=== PATIENT | male | born 1955 | race Caucasian/White ===

== ENCOUNTER 2022-01-13 10:27 | Observation (INO) ==
[2022-01-13] MEDS ORDERED: SODIUM CHLORIDE 0.9% 1000ML 1,000 ML IV ONE (11:14)
--- NOTE | 2022-01-13 11:16 | Emergency Department Note ---
Impression & Plan Near syncope, Dizziness, Atherosclerosis of left carotid artery ED Provider Note Name: ANGELY ALEGRIA Age: 66 Sex: M Arrives Via: Ambulance Informant: Patient, , EMS ED Provider: Joe Mccann MD Chief Complaint: Near syncope Impression: As per impressions above Medical Decision Making: Pleasant 66-year-old gentleman arrives for evaluation of near syncope. Patient with a history of hypertension, dyslipidemia, diabetes, BPH. He has a remote history of vertiginous issues. He notes dizziness over the last few days which comes and goes. He was actually seen yesterday for similar symptoms given some fluids and was feeling better. He was discharged feeling well yesterday this morning he was at work when he was just standing there and had a sudden onset of severe dizziness with some vertiginous aspect to it. He admitted that he almost passed out fell to the ground and hit his elbow off the ground. He has some abrasions to the elbow but they do not need closure and just some antibiotic ointment wound care. Tetanus is as he believes up-to-date within the last 10 years. He did have a CT Noncon of the head done yesterday thus a did go ahead and get a CT angiogram of the head and neck today which is fortunately unremarkable other than some atherosclerosis in the left carotid artery. There is no evidence of dissection or acute clot at this time. Repeat labs are unremarkable as well. He is not having much symptoms when just sitting but does note that sometimes they seem to come back. Given the near syncopal episode and the repeat TR I think it is reasonable to have the hospitalist evaluate him and they have brought him in for further work-up and evaluation. As he has no current neurologic deficits there is no indication for acute stroke alert nor would he be a tPA candidate. Given that no current symptoms I think it is r easonable to hold off any aspirin as well. Prior Medical Record and Triage/Nursing Notes reviewed by Me Additional history obtained from , chart, ems Differentials:Benign positional vertigo, dehydration, hypovolemia, anemia, tumor, infection, hypoglycemia, electrolyte abnormalities, cardiac sources, intracerebral event, toxicologic, neurologic, as well as other pathologies. Vital Signs: reviewed and remarkable for no significant abnormalities Interventions: Normal saline bolus Labs:Reviewed and remarkable for no significant abnormalities Imaging:CTA of the head and neck no acute findings other than some atherosclerosis of the left carotid artery without evidence of occlusion as per radiologist read EKG:Per My Interpretation: Indication near syncope: Sinus Song 59 bpm, qtc 479 with RBBB. No Ectopy. No Ischemia. Compared to EKG 01/12/22, no significant changes. Cardiac/Tele Monitoring: Cardiac Monitoring: An Order was placed for continuous cardiac monitoring. The monitor shows a rate of 60 with a normal sinus rhythm. Consults:Dr Livier Calvo hospitalist Plan: Disposition:Hospitalization. Condition: Good History of Present Illness:66-year-old gentleman with a history of hypertension , dyslipidemia, type 2 diabetes, BPH, PE. He arrives for evaluation of vertigo and near syncope. Patient states that the last 2 or 3 days he has noted episodes of vertiginous type symptoms. He had a history of this several years ago and had some work with a balance specialist and it had resolved. Yesterday the symptoms started getting worse so he came to the ER. At that time he had an extensive work-up including CT Noncon of the head along with other labs and EKGs. He was given fluids and had been feeling much better this went home. He woke this morning feeling fine he was at work when he developed severe feeling of spinning lightheadedness and fell to the ground. He landed on his right elbow. He states symptoms have mostly resolved. He denies any current headache, neck pain, chest pain, back pain, abdominal pain, nausea, vomiting, urinary/bowel symptoms no other symptoms. He had no recent medication changes other than he takes his metformin twice a day rather than both pills once a day. He took no medications prior to arrival. He is on aspirin 81 mg daily and no other blood thinners. He states he was feeling well for the last few months/weeks and really never gets sick. His denies any evidence of strokelike symptoms and denies any slurred speech, focal neurologic weakness or facial droop. Patient does have a history of PE which was incited by an Achilles tendon surgery. He is no longer on any blood thinners and has no family history of DVT/PE. He denies any chest pain, shortness of breath, syncope, leg swelling, calf pain, any difficulty breathing, exertional dyspnea or other symptoms. ROS: See above HPI for pertinent positives & negatives. A total of 10 systems reviewed and were otherwise negative. Past Medical History:Hypertension, dyslipidemia, type 2 diabetes, BPH, PE Past Surgical History:Achilles tendon surgery Family History:No family history of PE/DVT Social History:Works at a [employer] course, no smoking, Home Medications:See Below Allergies:Ceftriaxone Vitals:Blood Pressure: 156/83, Pulse 58, RR 15, T 36.6C, O2 97% on RA Physical Exam: GENERAL: Patient is mildly anxious appearing and in minimal distress. EYES: No scleral icterus, unremarkable pupils. ENT: Mucous membranes moist, no nasal congestion. NECK: No masses appreciated, nomeningismus, trachea is midline. RESPIRATORY: No dyspnea. Clear to auscultation and equal bilaterally. No wheeze, no rhonchi. CARDIOVASCULAR: Regular rate and rhythm.No murmurs, rubs, gallops appreciated. GASTROINTESTINAL: Abdomen soft, non-tender, no peritonitis.Bowel sounds positive.No masses appreciated. BACK: No midline tenderness, no CVA tenderness EXTREMITIES: Normal motion all extremities, no cyanosis, no edema. NEUROLOGIC: Alert and oriented, no acute motor or sensory deficits, no focal weakness, cranial nerves grossly intact. SKIN: No rash, no jaundice, no diaphoresis. PSYCH: Appropriate GCS: 15 ED Course: Times/Reassessments: Patient stable and says periodically he gets return of symptoms but he has not had them during my evaluation and he currently is feeling well. He is agreeable to hospitalist evaluation. Joe Mccann MD Past Med/Surg History Medical History (Updated 01/13/22 @ 18:51 by Joe Mccann MD) Cervical spinal stenosis DM II (diabetes mellitus, type II), controlled HLD (hyperlipidemia) Hypertension PE (pulmonary embolism) Surgical History (Updated 01/13/22 @ 16:04 by Deirdre Dumont PA-C) H/O laminectomy C3-C4 in 1990 Family History (Updated 01/13/22 @ 16:04 by Deirdre Dumont PA-C) Father Heart disease Social History Smoking Status: Never smoker Tobacco Type: Cigarettes Hx Alcohol Use: Yes Alcohol type: beer Hx Substance Use: No Preferred Language: Amharic Communication Ability: Effective Production Welder Required: No Beliefs That Will Affect Care: None Current Living Situation: Spouse Other Information That Helps Us Care for You: No Feels Safe at Home: Yes Assistive Devices: Glasses and Hearing Aid - Bilateral Allergies Allergies Allergy/AdvReac Type Severity Reaction Status Date / Time ceftriaxone Allergy Intermediate HIVES, Verified 01/13/22 14:26 SWELLING, ITCHING OF THROAT Home Meds Home Medications Medication Instructions Recorded Confirmed lisinopril 20 mg tablet 20 mg PO QAM #0 tab 06/27/14 01/13/22 multivitamin 1 tab PO QAM #0 tab 10/15/15 01/13/22 aspirin 81 mg tablet,delayed 81 mg PO QAM 01/12/22 01/13/22 release atorvastatin 20 mg tablet 20 mg PO HS 01/12/22 01/13/22 metformin 500 mg tablet,extended 500 mg PO BIDM 01/12/22 01/13/22 release 24 hr metoprolol succinate 25 mg 25 mg PO QAM 01/12/22 01/13/22 tablet,extended release 24 hr tamsulosin 0.4 mg capsule 0.4 mg PO QAM 01/12/22 01/13/22 Results & Data (ED) Vital Signs Vital Signs - 24 hr 01/13/22 10:36 01/13/22 11:00 01/13/22 12:00 Temperature 36.6 C Temperature Source Oral Pulse Rate 59 L 58 L 64 Pulse Rate [Apical] 59 L Respiratory Rate 20 15 19 Respiratory Effort / Characteristics Non-Labored Spontaneous Respiratory Depth Normal Respiratory Pattern Regular Blood Pressure 178/88 H 156/83 H 152/82 H Blood Pressure [Right Arm] 178/88 H Blood Pressure Mean 118 107 105 Blood Pressure Mean [Right Arm] 118 Pulse Oximetry 98 97 97 Oxygen Delivery Method Room Air Sepsis Recent Fever Within 48 Hours No Sepsis New/Unexplained Change in Mental Status No Sepsis Action Taken by Nursing No Action Required 01/13/22 13:04 01/13/22 14:00 Temperature Temperature Source Pulse Rate 74 71 Pulse Rate [Apical] Respiratory Rate 17 15 Respiratory Effort / Characteristics Respiratory Depth Respiratory Pattern Blood Pressure 173/87 H 165/95 H Blood Pressure [Right Arm] Blood Pressure Mean 115 118 Blood Pressure Mean [Right Arm] Pulse Oximetry 98 98 Oxygen Delivery Method Sepsis Recent Fever Within 48 Hours Sepsis New/Unexplained Change in Mental Status Sepsis Action Taken by Nursing Laboratory Data Result diagrams: 01/13/22 11:30 01/13/22 11:30 Lab Results 01/13/22 01/13/22 01/13/22 Range/Units 11:30 11:30 11:30 WBC 8.97 (4.8-10.8) K/uL RBC 5.05 (4.7-6.1) M/uL Hgb 15.9 (14.0-18.0) g/dL Hct 46.2 (42-52) % MCV 91.5 (80-100) fL MCH 31.5 (25-34) pg MCHC 34.4 (32-36) g/dL RDW Std Deviation 44.8 (36.4-46.3) fL RDW Coeff of Ankit 13.4 (11.5-14.5) % Plt Count 258 (130-400) K/uL MPV 10.5 H (7.4-10.4) fL Immature Gran % (Auto) 0.4 % Neut % (Auto) 80.0 % Lymph % (Auto) 11.0 % Hardy % (Auto) 6.8 % Eos % (Auto) 1.6 % Baso % (Auto) 0.2 % Neut # (Auto) 7.17 H (1.4-6.5) K/uL Lymph # (Auto) 0.99 L (1.2-3.4) K/uL Hardy # (Auto) 0.61 H (0.11-0.59) K/uL Eos # (Auto) 0.14 (0-0.5) K/uL Baso # (Auto) 0.02 (0-0.2) K/uL Immature Gran # (Auto) 0.04 H (0.00-0.02) K/uL Sodium 137 (136-145) mmol/L Potassium 3.9 (3.5-5.1) mmol/L Chloride 105 (98-107) mmol/L Carbon Dioxide 24 (21-32) mmol/L Anion Gap 8 (3-11) BUN 16 (6-23) mg/dl Creatinine 0.72 (0.6-1.4) mg/dl Est Cr Clr Drug Dosing 114.0 ml/min Est GFR ( Amer) 112.7 ml/min Est GFR (Non-Af Amer) 97.2 ml/min BUN/Creatinine Ratio 22.2 H (10-20) Glucose 145 H (70-99(Fasting)) mg/dl Calcium 8.8 (8.5-10.1) mg/dl Magnesium 1.9 (1.7-2.4) mg/dl Total Bilirubin 0.8 (0.2-1.0) mg/dl Direct Bilirubin 0.1 (0-0.2) mg/dl AST 20 (13-39) U/L ALT 19 (7-52) U/L Alkaline Phosphatase 92 (34-104) U/L Troponin I High Sens 4.5 (0-20) pg/ml Total Protein 7.2 (6.0-8.3) gm/dl Albumin 4.1 (3.4-5.0) gm/dl Urine Color Yellow Urine Appearance Clear (Clear) Urine pH 7.0 (4.5-7.5) Ur Specific [place] 1.014 (1.000-1.030) Urine Protein Negative (Negative) Urine Glucose (UA) Negative (Negative) Urine Ketones Trace H (Negative) Urine Blood Trace H (Negative) Urine Nitrite Negative (Negative) Urine Bilirubin Negative (Negative) Urine Urobilinogen Negative (Negative) Ur Leukocyte Esterase Negative (Negative) Urine WBC (Auto) 1-5 (0-5) /hpf Urine RBC (Auto) 5-10 H (0-4) /hpf U Hyaline Cast (Auto) 0 (0-5) /lpf U Epithel Cells (Auto) 5-10 H (0-5) /lpf Urine Bacteria (Auto) Negative (Negative) Ur Renal Epithelial Cell Not Reportable SARS-CoV-2, RNA, NAAT (NEGATIVE) 01/13/22 Range/Units 11:38 WBC (4.8-10.8) K/uL RBC (4.7-6.1) M/uL Hgb (14.0-18.0) g/dL Hct (42-52) % MCV (80-100) fL MCH (25-34) pg MCHC (32-36) g/dL RDW Std Deviation (36.4-46.3) fL RDW Coeff of Ankit (11.5-14.5) % Plt Count (130-400) K/uL MPV (7.4-10.4) fL Immature Gran % (Auto) % Neut % (Auto) % Lymph % (Auto) % Hardy % (Auto) % Eos % (Auto) % Baso % (Auto) % Neut # (Auto) (1.4-6.5) K/uL Lymph # (Auto) (1.2-3.4) K/uL Hardy # (Auto) (0.11-0.59) K/uL Eos # (Auto) (0-0.5) K/uL Baso # (Auto) (0-0.2) K/uL Immature Gran # (Auto) (0.00-0.02) K/uL Sodium (136-145) mmol/L Potassium (3.5-5.1) mmol/L Chloride (98-107) mmol/L Carbon Dioxide (21-32) mmol/L Anion Gap (3-11) BUN (6-23) mg/dl Creatinine (0.6-1.4) mg/dl Est Cr Clr Drug Dosing ml/min Est GFR ( Amer) ml/min Est GFR (Non-Af Amer) ml/min BUN/Creatinine Ratio (10-20) Glucose (70-99(Fasting)) mg/dl Calcium (8.5-10.1) mg/dl Magnesium (1.7-2.4) mg/dl Total Bilirubin (0.2-1.0) mg/dl Direct Bilirubin (0-0.2) mg/dl AST (13-39) U/L ALT (7-52) U/L Alkaline Phosphatase (34-104) U/L Troponin I High Sens (0-20) pg/ml Total Protein (6.0-8.3) gm/dl Albumin (3.4-5.0) gm/dl Urine Color Urine Appearance (Clear) Urine pH (4.5-7.5) Ur Specific [place] (1.000-1.030) Urine Protein (Negative) Urine Glucose (UA) (Negative) Urine Ketones (Negative) Urine Blood (Negative) Urine Nitrite (Negative) Urine Bilirubin (Negative) Urine Urobilinogen (Negative) Ur Leukocyte Esterase (Negative) Urine WBC (Auto) (0-5) /hpf Urine RBC (Auto) (0-4) /hpf U Hyaline Cast (Auto) (0-5) /lpf U Epithel Cells (Auto) (0-5) /lpf Urine Bacteria (Auto) (Negative) Ur Renal Epithelial Cell SARS-CoV-2, RNA, NAAT NEGATIVE (NEGATIVE) Administered Medications Discontinued Medications Sodium Chloride (Nss 1000ml) 1,000 mls @ 999 mls/hr IV .Q1H1M ONE Stop: 01/13/22 12:14 Last Infusion: 01/13/22 12:32 Dose: 0 mls/hr Documented by: [id number] Admin: 01/13/22 11:30 Dose: 999 mls/hr Documented by: [id number] Ioversol (Optiray 320 125ml) 121 ml IV ONCE ONE Stop: 01/13/22 13:05 Last Admin: 01/13/22 13:04 Dose: 121 ml Documented by: [id number] Imaging Data Radiologist's Impression: Head CTA 01/13/22 11:14 HEAD CTA HISTORY: vertigo, near syncope, (CT non con head yesterday) TECHNIQUE: Multiaxial CT images of the head were performed following the intravenous administration of contrast to evaluate the major cerebral vessels. Maximum intensity projection images were also obtained. A dose lowering technique was utilized adhering to the principles of ALARA. COMPARISON: Noncontrast head CT 01/12/2022. FINDINGS: There is no mass, hematoma, midline shift, or acute infarct. Visualized intracranial internal carotid arteries, distal vertebral arteries, and basilar artery are widely patent. There is no significant stenosis, occlusion, or aneurysm seen within the bilateral ACAs, MCAs, or research chief engineer. Small retention cyst within the left maxillary sinus. The mastoid air cells are clear. The major dural venous sinuses are patent. Mild calcified plaque within the bilateral carotid siphons. IMPRESSION: No significant stenosis, occlusion, or aneurysm within the [place]. ACT 112: Negative or not required by law. Electronically signed by: Ricardo Richard M.D. 01/13/2022 1:19 PM Neck CTA 01/13/22 11:14 CT ANGIOGRAM OF THE NECK CLINICAL HISTORY: Vertigo. Near syncope. COMPARISON STUDY: No priors. TECHNIQUE: Following the IV administration of 121 of Optiray 320, CT angiogram of the neck was performed from the aortic arch to the skull base. Images are reviewed in the axial, sagittal, and coronal planes. 3-D MIPS images are created and assessed. IV contrast was administered without complication. All measurements were calculated based on NASCET criteria. A dose lowering technique was utilized adhering to the principles of ALARA. CT DOSE: 584.40 mGy.cm FINDINGS: Thoracic aorta: Visualized portions of the thoracic aorta are normal in caliber. The aortic arch demonstrates 4-vessel variant anatomy. Right carotid arterial system: The right common carotid artery is widely patent. Atherosclerotic calcification of the carotid bulb and proximal internal carotid artery contribute to less than 50% stenosis of the proximal ICA. The remainder of the right internal carotid artery is widely patent, as is the right external carotid artery. Left carotid arterial system: There is atherosclerotic irregularity of the left common carotid artery which is patent. Atherosclerotic plaque in the carotid bulb and proximal ICA contributes to less than 50% luminal narrowing. The remainder of the left internal carotid artery is widely patent, as is the left external carotid artery. Vertebral arteries: Vertebral arteries are patent bilaterally and codominant. Focal narrowing of the left vertebral artery at the level of C5 on image #184 is likely related to an adjacent osteophyte. There is atherosclerotic calcification at the origin of the left vertebral artery. No dissection is clearly seen. The left vertebral artery arises directly from the thoracic aorta. Subclavian arteries: Widely patent bilaterally. Intracranial vasculature: The visualized intracranial vessels at the skull base are patent. Jugular veins: Widely patent bilaterally. Brain parenchyma: The visualized brain parenchyma the skull base is within normal limits. Lung apices: Partially visualized upper lobe lung parenchyma appears clear. Soft tissues: The visualized pharyngeal soft tissues are normal in appearance noting angiographic phase technique. The oropharyngeal airway appears widely patent. The salivary and thyroid glands are normal in appearance. No cervical lymphadenopathy is seen. Skeletal structures: The visualized calvarium at the skull base appears maintained. The imaged cervical appears intact. Postoperative and spondylotic change is seen throughout the thoracic spine. No lytic or blastic lesion is seen. Sinuses and mastoids: There is trace mucosal thickening and a [address] in the left maxillary antrum. The remaining visualized perineal sinuses are clear. The mastoid air cells are well pneumatized IMPRESSION: 1. Atherosclerotic plaque with no evidence of hemodynamically significant stenosis of the carotid arteries. 2. The vertebral arteries are patent bilaterally. ACT 112: Negative or not required by law. Electronically signed by: Jono Garcia M.D. 01/13/2022 1:18 PM Discharge Plan Visit Data Chief Complaint: Dizziness Stated Complaint: dizziness ED Provider: Joe Mccann Discharge Problem: Near syncope, Dizziness, Atherosclerosis of left carotid artery Patient Disposition: Admitted As Inpatient Discharge Instructions Interventions: ED Discharge Assessment Last Done: 01/13/22 17:44
[2022-01-13 11:50] LABS: Basophils # (auto) 0.02 K/uL (0-0.2); Basophils % (auto) 0.2 %; Eosinophils # (auto) 0.14 K/uL (0-0.5); Eosinophils % (auto) 1.6 %; Hematocrit (blood only) 46.2 % (42-52); Hemoglobin 15.9 g/dL (14.0-18.0); Immature Granulocytes # (auto) 0.04 K/uL (0.00-0.02); Immature Granulocytes % (auto) 0.4 %; Lymphocytes # (auto) 0.99 K/uL (1.2-3.4); Mean Corpuscular Hemoglobin 31.5 pg (25-34); Mean Corpuscular Hgb Conc 34.4 g/dL (32-36); Mean Corpuscular Volume 91.5 fL (80-100); Mean Platelet Volume 10.5 fL (7.4-10.4); Monocytes # (auto) 0.61 K/uL (0.11-0.59); Monocytes % (auto) 6.8 %; Neutrophils # (auto) 7.17 K/uL (1.4-6.5); Platelet Count 258 K/uL (130-400); RDW Coefficient of Variation 13.4 % (11.5-14.5); RDW Standard Deviation 44.8 fL (36.4-46.3); Red Blood Count 5.05 M/uL (4.7-6.1); White Blood Count 8.97 K/uL (4.8-10.8)
[2022-01-13 11:55] LABS: Appearance Urine Clear (Clear); Bacteria Urine Automated Negative (Negative); Bilirubin Urine Negative (Negative); Blood Urine Trace (Negative); Cast Urine Automated 0 /lpf (0-5); Color Urine Yellow; Glucose Urine UA Negative (Negative); Ketones Urine Trace (Negative); Leukocyte Esterase Urine Negative (Negative); Nitrite Urine Negative (Negative); Protein Urine Negative (Negative); Specific Gravity Urine 1.014 (1.000-1.030); Urobilinogen Urine Negative (Negative)
[2022-01-13 12:15] LABS: Albumin Level 4.1 gm/dl (3.4-5.0); BUN Creatinine Ratio 22.2 (10-20); Bilirubin Direct 0.1 mg/dl (0-0.2); Bilirubin,Total 0.8 mg/dl (0.2-1.0); Calcium 8.8 mg/dl (8.5-10.1); Est GFR (African American) 112.7 ml/min; Est GFR (Non-African American) 97.2 ml/min; Magnesium 1.9 mg/dl (1.7-2.4); Potassium 3.9 mmol/L (3.5-5.1); Total Protein 7.2 gm/dl (6.0-8.3)
[2022-01-13 12:21] LABS: Troponin I High Sensitivity 4.5 pg/ml (0-20)
[2022-01-13] MEDS ORDERED: OPTIRAY 320 125ml IV ONE (13:04)
--- NOTE | 2022-01-13 13:20 | CT Scan Report ---
HEAD CTA HISTORY: vertigo, near syncope, (CT non con head yesterday) TECHNIQUE: Multiaxial CT images of the head were performed following the intravenous administration o f contrast to evaluate the major cerebral vessels. Maximum intensity projection images were also obta ined. A dose lowering technique was utilized adhering to the principles of ALARA. COMPARISON: Noncontrast head CT 01/12/2022. FINDINGS: There is no mass, hematoma, midline shift, or acute infarct. Visualized intracranial product managent intern al carotid arteries, distal vertebral arteries, and basilar artery are widely patent. There is no sig nificant stenosis, occlusion, or aneurysm seen within the bilateral ACAs, MCAs, or manager alliance. Small retent ion cyst within the left maxillary sinus. The mastoid air cells are clear. The major dural venous sin uses are patent. Mild calcified plaque within the bilateral carotid siphons. IMPRESSION: No significant stenosis, occlusion, or aneurysm within the [place] of [place]. ACT 112: Negative or not required by law. Electronically signed by: Ricardo Richard M.D. 01/13/2022 1:19 PM
--- NOTE | 2022-01-13 13:20 | CT Scan Report ---
CT ANGIOGRAM OF THE NECK CLINICAL HISTORY: Vertigo. Near syncope. COMPARISON STUDY: No priors. TECHNIQUE: Following the IV administration of 121 of Optiray 320, CT angiogram of the neck was perfor med from the aortic arch to the skull base. Images are reviewed in the axial, sagittal, and coronal p lanes. 3-D MIPS images are created and assessed. IV contrast was administered without complication. A ll measurements were calculated based on NASCET criteria. A dose lowering technique was utilized adh ering to the principles of ALARA. CT DOSE: 584.40 mGy.cm FINDINGS: Thoracic aorta: Visualized portions of the thoracic aorta are normal in caliber. The aortic arch demo nstrates 4-vessel variant anatomy. Right carotid arterial system: The right common carotid artery is widely patent. Atherosclerotic calc ification of the carotid bulb and proximal internal carotid artery contribute to less than 50% stenos is of the proximal ICA. The remainder of the right internal carotid artery is widely patent, as is th e right external carotid artery. Left carotid arterial system: There is atherosclerotic irregularity of the left common carotid artery which is patent. Atherosclerotic plaque in the carotid bulb and proximal ICA contributes to less lesli n 50% luminal narrowing. The remainder of the left internal carotid artery is widely patent, as is th e left external carotid artery. Vertebral arteries: Vertebral arteries are patent bilaterally and codominant. Focal narrowing of the left vertebral artery at the level of C5 on image #184 is likely related to an adjacent osteophyte. T here is atherosclerotic calcification at the origin of the left vertebral artery. No dissection is cl early seen. The left vertebral artery arises directly from the thoracic aorta. Subclavian arteries: Widely patent bilaterally. Intracranial vasculature: The visualized intracranial vessels at the skull base are patent. Jugular veins: Widely patent bilaterally. Brain parenchyma: The visualized brain parenchyma the skull base is within normal limits. Lung apices: Partially visualized upper lobe lung parenchyma appears clear. Soft tissues: The visualized pharyngeal soft tissues are normal in appearance noting angiographic pha se technique. The oropharyngeal airway appears widely patent. The salivary and thyroid glands are nor mal in appearance. No cervical lymphadenopathy is seen. Skeletal structures: The visualized calvarium at the skull base appears maintained. The imaged cervic al appears intact. Postoperative and spondylotic change is seen throughout the thoracic spine. No lyt ic or blastic lesion is seen. Sinuses and mastoids: There is trace mucosal thickening and a 12 mm retention cyst in the left maxill barbie antrum. The remaining visualized perineal sinuses are clear. The mastoid air cells are well pneum atized IMPRESSION: 1. Atherosclerotic plaque with no evidence of hemodynamically significant stenosis of the carotid art eries. 2. The vertebral arteries are patent bilaterally. ACT 112: Negative or not required by law. Electronically signed by: Jono Garcia M.D. 01/13/2022 1:18 PM
--- NOTE | 2022-01-13 14:14 | History & Physical Report ---
Date of Service January 13, 2022 Assessment & Plan (1) Episode of syncope: Plan: - Admit to tele - Pt complaint of dizziness, possible BPPV, vasovagal episode or acute labrynthitis with recent cold symptoms and post viral effect. - No leukocytosis, afebrile so does not appear to be infectious in nature - stroke orderset completed - Neuro consulted - Check 2D echo - A1C and lipids for completeness - Will check MRI brain w/wo contrast - PT/OT consults : perform Carri maneuver after MRI if negative (2) Hypertension: Plan: - Continue lisinopril and metoprolol - Check orthostatics (3) HLD (hyperlipidemia): Plan: - Increase statin from 20 to 80s - am lipid panel (4) DM II (diabetes mellitus, type II), controlled: Plan: - ISS with accuchecks achs - A1C 6.7 - hold metformin DVT ppx: teds, scds CODE: FULL Dispo: From home, likely to remain in the hospital overnight and be discharged tomorrow. History of Present Illness Chief Complaint: Dizziness, syncopal event Primary Care Provider: Micah Cline DO This is a 66-year-old male with PMHx of HTN, HLD, DM type II, history of PE who presents with acute onset of dizziness which started Thursday night. He reports that yesterday morning his symptoms of near syncopal event prompted him to come to the ER. He was however seen no specific findings were found, chest x-ray was clear, blood work was within normal limits, negative orthostatics, was given 1 L of fluid to hydrate him and was sent home after his symptoms of dizziness improved. He represents today with similar symptoms. 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 Denies any trauma to his head. He presents to the ER with his today. Patient is concerned that this is possibly BPPV as he has had it before. Of note he had a viral cold last week, and had taken an antihistamine for several days in a row, last time was on Thursday. He denies any residual congestion, sinus pressure, shortness of breath, chest pain, palpitations or flutter. He denies any focal weakness in his arms or legs, changes in vision, changes in speech. He has never had a stroke before, and takes baby aspirin and low-dose atorvastatin daily. He also took his morning antihypertensives including lisinopril and metoprolol succinate 25 mg. Reports that his daughter is a PA-C and works within the allergy department and also recommended he be checked out at the ER. He denies any history of smoking, drinks alcohol, 2-3 beers per week, last time drank beer was on evening. He does not routinely exercise with cardio or strength training, but walks every day at his job. Allergies Allergy/AdvReac Type Severity Reaction Status Date / Time ceftriaxone Allergy Intermediate HIVES, Verified 01/13/22 14:26 SWELLING, ITCHING OF THROAT Home Medications Medication Instructions Recorded Confirmed Type lisinopril 20 mg tablet 20 mg PO QAM #0 tab 06/27/14 01/13/22 History multivitamin 1 tab PO QAM #0 tab 10/15/15 01/13/22 History aspirin 81 mg tablet,delayed 81 mg PO QAM 01/12/22 01/13/22 History release atorvastatin 20 mg tablet 20 mg PO HS 01/12/22 01/13/22 History metformin 500 mg tablet,extended 500 mg PO BIDM 01/12/22 01/13/22 History release 24 hr metoprolol succinate 25 mg 25 mg PO QAM 01/12/22 01/13/22 History tablet,extended release 24 hr tamsulosin 0.4 mg capsule 0.4 mg PO QAM 01/12/22 01/13/22 History Past Med/Surg History Medical History (Updated 01/13/22 @ 18:51 by Joe Mccann MD) Cervical spinal stenosis DM II (diabetes mellitus, type II), controlled HLD (hyperlipidemia) Hypertension PE (pulmonary embolism) Surgical History (Updated 01/13/22 @ 16:04 by Deirdre Dumont PA-C) H/O laminectomy C3-C4 in 1990 Family History (Updated 01/13/22 @ 16:04 by Deirdre Dumont PA-C) Father Heart disease Social History Smoking Status: Never smoker Tobacco Type: Cigarettes Hx Alcohol Use: Yes Alcohol type: beer Hx Substance Use: No Preferred Language: Setswana Communication Ability: Effective Cloth Bleaching Supervisor Required: No Beliefs That Will Affect Care: None Current Living Situation: Spouse Other Information That Helps Us Care for You: No Feels Safe at Home: Yes Assistive Devices: Glasses and Hearing Aid - Bilateral Review of Systems Review of Systems: Constitutional: No fever, sweats or chills, + lightheadedness, dizziness Eyes: No diplopia, no worsening or blurred vision ENT: normal hearing, no trouble swallowing Respiratory: No cough, sputum, dyspnea at rest or on exertion Cardiovascular: No chest pain, tightness or palpitations Abdomen: No pain, nausea, vomiting, diarrhea or constipation Musculoskeletal: No joint pain, calf pain, swelling Neurologic: No weakness, numbness/tingling, or balance problems Psychiatric: No anxiety or depression Skin: No rash or itch Physical Exam Physical Exam: General: awake, alert, no apparent distress Head: Normocephalic, atraumatic ENT: PERRL, EOMI, no pharyngeal exudate, mucous membranes moist Chest: Clear to auscultation, on room air, no adventitious breath sounds Cardiac: Regular rate and rhythm, + faint systolic murmur, no JVD, normal peripheral pulses, good capillary refill Abdominal: NABS x 4 quadrants, soft, nondistended, nontender to palpation, no rebound or guarding Extremities: Normal inspection, no peripheral edema or erythema, calfs nontender to palpation Psych: Normal mood and affect Neuro: AAO x 3, strength intact bilaterally and rated 5/5, no motor deficits, speech is clear, no peripheral sensory deficits Results & Data Results & Data ([facility]) Vital Signs (Past 12 Hours) Vital Signs Temp Pulse Pulse Resp BP BP Pulse Ox 01/13/22 13:04 74 17 173/87 H 98 01/13/22 12:00 64 19 152/82 H 97 01/13/22 11:00 58 L 15 156/83 H 97 01/13/22 10:36 36.6 C 59 L 59 L 20 178/88 H 178/88 H 98 Laboratory Results 01/13/22 01/13/22 01/13/22 11:38 11:30 11:30 WBC RBC Hgb Hct MCV MCH MCHC RDW Std Deviation RDW Coeff of Ankit Plt Count MPV Immature Gran % (Auto) Neut % (Auto) Lymph % (Auto) Antelope % (Auto) Eos % (Auto) Baso % (Auto) Neut # (Auto) Lymph # (Auto) Antelope # (Auto) Eos # (Auto) Baso # (Auto) Immature Gran # (Auto) Sodium 137 Potassium 3.9 Chloride 105 Carbon Dioxide 24 Anion Gap 8 BUN 16 Creatinine 0.72 Est Cr Clr Drug Dosing 114.0 Est GFR ( Amer) 112.7 Est GFR (Non-Af Amer) 97.2 BUN/Creatinine Ratio 22.2 H Glucose 145 H Calcium 8.8 Magnesium 1.9 Total Bilirubin 0.8 Direct Bilirubin 0.1 AST 20 ALT 19 Alkaline Phosphatase 92 Troponin I High Sens 4.5 Total Protein 7.2 Albumin 4.1 Urine Color Yellow Urine Appearance Clear Urine pH 7.0 Ur Specific Robbins 1.014 Urine Protein Negative Urine Glucose (UA) Negative Urine Ketones Trace H Urine Blood Trace H Urine Nitrite Negative Urine Bilirubin Negative Urine Urobilinogen Negative Ur Leukocyte Esterase Negative Urine WBC (Auto) 1-5 Urine RBC (Auto) 5-10 H U Hyaline Cast (Auto) 0 U Epithel Cells (Auto) 5-10 H Urine Bacteria (Auto) Negative Ur Renal Epithelial Cell Not Reportable SARS-CoV-2, RNA, NAAT NEGATIVE 01/13/22 11:30 WBC 8.97 RBC 5.05 Hgb 15.9 Hct 46.2 MCV 91.5 MCH 31.5 MCHC 34.4 RDW Std Deviation 44.8 RDW Coeff of Ankit 13.4 Plt Count 258 MPV 10.5 H Immature Gran % (Auto) 0.4 Neut % (Auto) 80.0 Lymph % (Auto) 11.0 Antelope % (Auto) 6.8 Eos % (Auto) 1.6 Baso % (Auto) 0.2 Neut # (Auto) 7.17 H Lymph # (Auto) 0.99 L Antelope # (Auto) 0.61 H Eos # (Auto) 0.14 Baso # (Auto) 0.02 Immature Gran # (Auto) 0.04 H Sodium Potassium Chloride Carbon Dioxide Anion Gap BUN Creatinine Est Cr Clr Drug Dosing Est GFR ( Amer) Est GFR (Non-Af Amer) BUN/Creatinine Ratio Glucose Calcium Magnesium Total Bilirubin Direct Bilirubin AST ALT Alkaline Phosphatase Troponin I High Sens Total Protein Albumin Urine Color Urine Appearance Urine pH Ur Specific Robbins Urine Protein Urine Glucose (UA) Urine Ketones Urine Blood Urine Nitrite Urine Bilirubin Urine Urobilinogen Ur Leukocyte Esterase Urine WBC (Auto) Urine RBC (Auto) U Hyaline Cast (Auto) U Epithel Cells (Auto) Urine Bacteria (Auto) Ur Renal Epithelial Cell SARS-CoV-2, RNA, NAAT Diagnostic Findings Head CTA 01/13/22 11:14 HEAD CTA HISTORY: vertigo, near syncope, (CT non con head yesterday) TECHNIQUE: Multiaxial CT images of the head were performed following the intravenous administration of contrast to evaluate the major cerebral vessels. Maximum intensity projection images were also obtained. A dose lowering technique was utilized adhering to the principles of ALARA. COMPARISON: Noncontrast head CT 01/12/2022. FINDINGS: There is no mass, hematoma, midline shift, or acute infarct. Visualized intracranial internal carotid arteries, distal vertebral arteries, and basilar artery are widely patent. There is no significant stenosis, occlusion, or aneurysm seen within the bilateral ACAs, MCAs, or key carrier. Small retention cyst within the left maxillary sinus. The mastoid air cells are clear. The major dural venous sinuses are patent. Mild calcified plaque within the bilateral carotid siphons. IMPRESSION: No significant stenosis, occlusion, or aneurysm within the [place]. ACT 112: Negative or not required by law. Electronically signed by: Ricardo Richard M.D. 01/13/2022 1:19 PM Neck CTA 01/13/22 11:14 CT ANGIOGRAM OF THE NECK CLINICAL HISTORY: Vertigo. Near syncope. COMPARISON STUDY: No priors. TECHNIQUE: Following the IV administration of 121 of Optiray 320, CT angiogram of the neck was performed from the aortic arch to the skull base. Images are reviewed in the axial, sagittal, and coronal planes. 3-D MIPS images are created and assessed. IV contrast was administered without complication. All measurements were calculated based on NASCET criteria. A dose lowering technique was utilized adhering to the principles of ALARA. CT DOSE: 584.40 mGy.cm FINDINGS: Thoracic aorta: Visualized portions of the thoracic aorta are normal in caliber. The aortic arch demonstrates 4-vessel variant anatomy. Right carotid arterial system: The right common carotid artery is widely patent. Atherosclerotic calcification of the carotid bulb and proximal internal carotid artery contribute to less than 50% stenosis of the proximal ICA. The remainder of the right internal carotid artery is widely patent, as is the right external carotid artery. Left carotid arterial system: There is atherosclerotic irregularity of the left common carotid artery which is patent. Atherosclerotic plaque in the carotid bulb and proximal ICA contributes to less than 50% luminal narrowing. The remainder of the left internal carotid artery is widely patent, as is the left external carotid artery. Vertebral arteries: Vertebral arteries are patent bilaterally and codominant. Focal narrowing of the left vertebral artery at the level of C5 on image #184 is likely related to an adjacent osteophyte. There is atherosclerotic calcification at the origin of the left vertebral artery. No dissection is clearly seen. The left vertebral artery arises directly from the thoracic aorta. Subclavian arteries: Widely patent bilaterally. Intracranial vasculature: The visualized intracranial vessels at the skull base are patent. Jugular veins: Widely patent bilaterally. Brain parenchyma: The visualized brain parenchyma the skull base is within normal limits. Lung apices: Partially visualized upper lobe lung parenchyma appears clear. Soft tissues: The visualized pharyngeal soft tissues are normal in appearance noting angiographic phase technique. The oropharyngeal airway appears widely patent. The salivary and thyroid glands are normal in appearance. No cervical lymphadenopathy is seen. Skeletal structures: The visualized calvarium at the skull base appears maintained. The imaged cervical appears intact. Postoperative and spondylotic change is seen throughout the thoracic spine. No lytic or blastic lesion is seen. Sinuses and mastoids: There is trace mucosal thickening and a 12 mm retention cyst in the left maxillary antrum. The remaining visualized perineal sinuses are clear. The mastoid air cells are well pneumatized IMPRESSION: 1. Atherosclerotic plaque with no evidence of hemodynamically significant stenosis of the carotid arteries. 2. The vertebral arteries are patent bilaterally. ACT 112: Negative or not required by law. Electronically signed by: Jono Garcia M.D. 01/13/2022 1:18 PM ECG Additional Comments: 3 [facility]-EDSTAT ROUTINE RETRIEVAL Sinus bradycardia with sinus arrhythmia Right bundle branch block Abnormal ECG When compared with ECG of 12-JAN-2022 11:52, No significant change was found 25mm/s10mm/[id number] 241 HDCID: 12Referred by: REFERRED SELF Unconfirmed Vent. rate 59 BPM TN interval 120 ms QRS duration 146 ms QT/QTc 484/479 ms Supervising Physician Co-Signing Physician Notes Attending addendum The patient was seen and examined in medical telemetry unit He was admitted with episodes of dizziness and near syncope that happened 3 times so far He denies any significant associated symptoms with each episode Does not happen to be with sudden movement of the neck on examination No fever and or chills, no problem with urine and or bowel habit and no incontinence On examination Sitting at the edge of the bed without any apparent distress Hemodynamically stable Sudden movement of the neck did not reproduce any episode of vertigo Chest-clear to auscultate bilaterally Heart-S1-S2, regular Abdomen-benign Extremities-negative for any edema BEHAVIORAL THERAPIST-alert, awake and oriented x3. No focal sensory and motor deficit appreciated His admission labs, EKG and imaging studies reviewed Has significant dizziness with near syncope-could be secondary to vasovagal episode or acute labyrinthitis Did not have any postural hypotension Will get physical therapy and Carri maneuver Neurology has been consulted Agree with assessment and plan as outlined above by Deirdre Maier
[2022-01-13] MEDS ORDERED: PHARMACIST DISCHARGE MED REC CONSULT PRN (18:20)
[2022-01-13] MEDS ORDERED: GADOBUTROL 65ML VIAL IV ONE (21:11)
[2022-01-13] MEDS ORDERED: ACETAMINOPHEN 325 MG TAB PO PRN (21:13)
[2022-01-14 07:11] LABS: Hematocrit (blood only) 45.3 % (42-52); Hemoglobin 15.4 g/dL (14.0-18.0); Mean Corpuscular Hemoglobin 31.7 pg (25-34); Mean Corpuscular Volume 93.2 fL (80-100); Mean Platelet Volume 10.2 fL (7.4-10.4); Platelet Count 261 K/uL (130-400); RDW Coefficient of Variation 13.4 % (11.5-14.5); RDW Standard Deviation 46.2 fL (36.4-46.3); Red Blood Count 4.86 M/uL (4.7-6.1); White Blood Count 7.47 K/uL (4.8-10.8)
[2022-01-14 07:34] LABS: Albumin Globulin Ratio 1.4 (0.9-2); Albumin Level 3.9 gm/dl (3.4-5.0); Bilirubin,Total 0.8 mg/dl (0.2-1.0); Calcium 8.3 mg/dl (8.5-10.1); Chol HDL Ratio 3.4 (0-5); Creatinine Clr Calc Pharmacy 110.3 ml/min; Est GFR (African American) 115.3 ml/min; Est GFR (Non-African American) 99.5 ml/min; Globulin 2.8 gm/dl (2.5-4.0); Potassium 3.8 mmol/L (3.5-5.1); Total Protein 6.7 gm/dl (6.0-8.3)
[2022-01-14] MEDS: INSULIN ASPART PER UNIT SC SCH ×2 (08:03→12:26)
--- NOTE | 2022-01-14 08:13 | Neurology Consultation ---
Date of Consultation January 14, 2022 Assessment & Plan (1) Dizziness: 1. MRI no acute findings 2. PT for Carri maneuver no further symptoms after Carri done 3. orthostatics were negative 4. TTE- r/o cardiac source and monitor may need out patient ZIO 5. will arrange for follow up in Neurology in 4-6 weeks 6. CTA stable continue aspirin (2) Near syncope: (3) Atherosclerosis of left carotid artery: 1. continue aspirin 81 mg Supervising Physician Co-Signing Physician Notes I have seen and discussed above patient with Dr Linda Marte, neurology History of Present Illness Reason for Consultation: syncopal episodes Requesting Physician: Griselda Maier MD Attending Physician: Griselda Maier MD History of Present Illness Gerber is a 66 year old male with PMH- HTN, HLD, DM II, PE who presents to [facility] ED 01/13/22 acute onset of dizziness which started Thursday night. His symptoms of near syncopal event prompted him to come to the ER. He was seen and no specific findings were found, chest x-ray was clear, blood work was within normal limits, negative orthostatics, was given 1 L of fluid to hydrate him and was sent home after his symptoms of dizziness improved. He then presented with similar symptoms. 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 He has no history of stroke and takes baby aspirin and low-dose atorvastatin daily. He also took his morning antihypertensives including lisinopril and metoprolol succinate 25 mg. Allergies Allergy/AdvReac Type Severity Reaction Status Date / Time ceftriaxone Allergy Intermediate HIVES, Verified 01/13/22 14:26 SWELLING, ITCHING OF THROAT Home Medications Medication Instructions Recorded Confirmed Type lisinopril 20 mg tablet 20 mg PO QAM #0 tab 06/27/14 01/13/22 History multivitamin 1 tab PO QAM #0 tab 10/15/15 01/13/22 History aspirin 81 mg tablet,delayed 81 mg PO QAM 01/12/22 01/13/22 History release atorvastatin 20 mg tablet 20 mg PO HS 01/12/22 01/13/22 History metformin 500 mg tablet,extended 500 mg PO BIDM 01/12/22 01/13/22 History release 24 hr metoprolol succinate 25 mg 25 mg PO QAM 01/12/22 01/13/22 History tablet,extended release 24 hr tamsulosin 0.4 mg capsule 0.4 mg PO QAM 01/12/22 01/13/22 History meclizine 12.5 mg tablet 12.5 mg PO TID PRN #20 tab 01/14/22 Rx Patient History Medical History (Updated 01/13/22 @ 18:51 by Joe Mccann MD) Cervical spinal stenosis DM II (diabetes mellitus, type II), controlled HLD (hyperlipidemia) Hypertension PE (pulmonary embolism) Surgical History (Updated 01/13/22 @ 16:04 by Deirdre Dumont PA-C) H/O laminectomy C3-C4 in 1990 Family History (Updated 01/13/22 @ 16:04 by Deirdre Dumont PA-C) Father Heart disease Social History Smoking Status: Never smoker Tobacco Type: Cigarettes Hx Alcohol Use: Yes Alcohol type: beer Hx Substance Use: No Preferred Language: Tajik Communication Ability: Effective Supervisor Safety Deposit Required: No Beliefs That Will Affect Care: None Current Living Situation: Spouse Other Information That Helps Us Care for You: No Feels Safe at Home: Yes Assistive Devices: Glasses and Hearing Aid - Bilateral Physical Exam Physical Exam: left before being seen Results & Data ([facility]) Vital Signs (Past 12 Hours) Vital Signs Temp Pulse Pulse Resp BP Pulse Ox 01/14/22 07:51 57 L 01/14/22 06:56 36.8 C 64 20 112/63 97 01/14/22 04:00 36.6 C 61 20 132/67 95 01/13/22 23:00 36.6 C 65 20 132/77 95 01/13/22 22:18 62 Laboratory Results Abnormal lab results 01/13/22 01/13/22 01/13/22 Range/Units 11:30 11:30 11:30 MPV 10.5 H (7.4-10.4) fL Neut # (Auto) 7.17 H (1.4-6.5) K/uL Lymph # (Auto) 0.99 L (1.2-3.4) K/uL Tama # (Auto) 0.61 H (0.11-0.59) K/uL Immature Gran # (Auto) 0.04 H (0.00-0.02) K/uL Chloride (98-107) mmol/L BUN/Creatinine Ratio 22.2 H (10-20) Glucose 145 H (70-99(Fasting)) mg/dl POC Glucose (70-99) mg/dl Calcium (8.5-10.1) mg/dl Urine Ketones Trace H (Negative) Urine Blood Trace H (Negative) Urine RBC (Auto) 5-10 H (0-4) /hpf U Epithel Cells (Auto) 5-10 H (0-5) /lpf 01/13/22 01/14/22 Range/Units 21:39 06:41 MPV (7.4-10.4) fL Neut # (Auto) (1.4-6.5) K/uL Lymph # (Auto) (1.2-3.4) K/uL Tama # (Auto) (0.11-0.59) K/uL Immature Gran # (Auto) (0.00-0.02) K/uL Chloride 108 H (98-107) mmol/L BUN/Creatinine Ratio 25.0 H (10-20) Glucose 127 H (70-99(Fasting)) mg/dl POC Glucose 125 H (70-99) mg/dl Calcium 8.3 L (8.5-10.1) mg/dl Urine Ketones (Negative) Urine Blood (Negative) Urine RBC (Auto) (0-4) /hpf U Epithel Cells (Auto) (0-5) /lpf Diagnostic Findings CTA head-No significant stenosis, occlusion, or aneurysm within the [place]. CTA neck-Atherosclerotic plaque with no evidence of hemodynamically significant stenosis of the carotid arteries. The vertebral arteries are patent bilaterally. MRI brain - no acute findings TTE- 60-65% EF no ASD
--- NOTE | 2022-01-14 08:41 | Magnetic Resonance Report ---
MR brain wo/w con HISTORY: 66 years-old Male dizziness, syncopal episode acute dizziness with lightheadedness COMPARISON: Head CT of same day TECHNIQUE: Multiplanar multisequence MRI of the brain was obtained both with and without the use of 9 cc Gadavist FINDINGS: The hockey scout localizer images demonstrate no gross extracranial abnormality. There is no restricted diff usion to suggest acute or subacute infarct. The midline structures appear unremarkable. Partially emp ty sella degenerative changes of the imaged cervical spine. There is no acute intracranial hemorrhage, midline shift, abnormal extra-axial collection, hydrocepha phillip or intracranial mass. No pathologic blooming artifact on the T2 star series. Mild involutional ch anges. No significant T2/FLAIR signal abnormalities identified within the brain parenchyma. The cereb ral venous sinuses and major arterial flow voids are patent. Mastoid air cells are clear. Small focus of polypoid mucosal thickening is noted within the left maxillary sinus. There is minimal mucosal th ickening of the paranasal sinuses. The skull, orbits and soft tissues are unremarkable. No abnormal e nhancement. IMPRESSION: 1. No acute intracranial abnormality. No acute or subacute infarct. 2. No abnormal enhancement. ACT 112: Negative or not required by law. The above report was generated using voice recognition software. It may contain grammatical, syntax o r spelling errors. Electronically signed by: Yg Moore M.D. 01/14/2022 8:39 AM
[2022-01-14] MEDS ORDERED: ATORVASTATIN 40 MG TAB PO SCH (09:00)
[2022-01-14 09:25] LABS: Estimated Average Glucose 140 mg/dl; Hemoglobin A1C 6.5 % (4.5-5.6)
--- NOTE | 2022-01-14 13:51 | Hospitalist Progress Note ---
Date of Service January 14, 2022 Assessment & Plan (1) Episode of syncope: Plan: - Admit to tele - Pt complaint of dizziness, possible BPPV, vasovagal episode or acute labrynthitis with recent cold symptoms and post viral effect. - No leukocytosis, afebrile so does not appear to be infectious in nature - stroke orderset completed - Neuro consulte-appreciate input and recommendation - Check 2D echo: LV is normal in size with normal wall thickness and without any wall motion abnormality, EF 60 to 65%, there is no significant valvular disease and injection of contrast documented no interatrial shunt -Hemoglobin A1c is 6.5 and lipids are unremarkable with LDL cholesterol being 66 - Will check MRI brain w/wo contrast-negative for any acute events - PT/OT consults : perform Carri maneuver after MRI if negative -Underwent PT evaluation and Carri maneuver showed improvement of his symptoms -No evidence of postural hypotension -Will be discharged home this afternoon with the Zio patch as an outpatient (2) Hypertension: Plan: - Continue lisinopril and metoprolol - Check orthostatics (3) HLD (hyperlipidemia): Plan: - Increase statin from 20 to 80s - am lipid panel (4) DM II (diabetes mellitus, type II), controlled: Plan: - ISS with accuchecks achs - A1C 6.7 - hold metformin DVT ppx: tedbecca, scds CODE: FULL Dispo: From home, likely to remain in the hospital overnight and be discharged tomorrow. Admission and Anticipated Discharge Date Admission Date: January 13, 2022 Subjective 01/14/2022 The patient was seen and examined in medical telemetry unit He did not have any more episode of dizziness Denies any other neurological symptoms Has had Carri maneuver and the condition improved No evidence of postural hypotension and no arrhythmias Review of Systems Review of Systems: All systems reviewed and are unremarkable except as noted b elow Physical Exam Physical Exam: Sitting at the edge of the bed without any distress Constitutional: well developed, well nourished and average body habitus; not ill appearing Eyes: PERRL, conjunctivae normal, anicteric sclerae ENMT: external ear and nose normal, oropharynx normal Neck: trachea midline, no thyromegaly Respiratory: no respiratory distress Auscultation: lungs clear to auscultation bilaterally Cardiovascular: Rate/Rhythm: regular rate, regular rhythm and + bradycardic Heart Sounds: normal S1 and normal S2; no murmur Extremities: no edema Gastrointestinal (Abdomen): Inspection/Auscultation: normal bowel sounds; abdomen not distended Percussion/Palpation: abdomen soft; abdomen nontender Musculoskeletal: No acute arthritis in any joint Neurologic: Alert, awake and oriented x3. No focal sensory or no motor deficit appreciated Psychiatric: A+Ox3, euthymic affect Lymphatic: no cervical or axillary lymphadenopathy Results & Data Results & Data ([facility]) Vital Signs (Past 12 Hours) Vital Signs Temp Pulse Pulse Resp BP Pulse Ox 01/14/22 10:57 36.3 C L 97 01/14/22 07:51 57 L 01/14/22 06:56 36.8 C 64 20 112/63 97 01/14/22 04:00 36.6 C 61 20 132/67 95 Laboratory Results Short CBC 01/14/22 Range/Units 06:41 WBC 7.47 (4.8-10.8) K/uL Hgb 15.4 (14.0-18.0) g/dL Hct 45.3 (42-52) % Plt Count 261 (130-400) K/uL BMP 01/14/22 06:41 Sodium 138 Potassium 3.8 Chloride 108 H Carbon Dioxide 25 BUN 17 Creatinine 0.68 Glucose 127 H Calcium 8.3 L Liver Function 01/14/22 Range/Units 06:41 Total Bilirubin 0.8 (0.2-1.0) mg/dl AST 21 (13-39) U/L ALT 18 (7-52) U/L Alkaline Phosphatase 87 (34-104) U/L Albumin 3.9 (3.4-5.0) gm/dl Medications Administered Current Inpatient Medications Acetaminophen (Acetaminophen 325 Mg Tab) 650 mg PO Q4H PRN PRN Reason: Pain Stop: 02/12/22 21:12 Last Admin: 01/13/22 21:36 Dose: 650 mg Documented by: Atorvastatin Calcium (Atorvastatin 40 Mg Tab) 80 mg PO QAM [facility] Stop: 02/13/22 08:59 Last Admin: 01/14/22 12:26 Dose: 80 mg Documented by: Insulin Aspart (Insulin Aspart Per Unit) 0 units SC ACHS [facility] Stop: 02/13/22 07:29 Last Admin: 01/14/22 12:26 Dose: Not Given Documented by: Miscellaneous Information (Pharmacist Discharge Med Rec Consult) 1 ea N/A UD PRN PRN Reason: Consult Stop: 02/12/22 18:19
[2022-01-14] MEDS ORDERED: STROKE PATIENT DISCHARGE STA (14:19)
--- NOTE | 2022-01-15 07:46 | Discharge Summary ---
Date of Service January 15, 2022 Admission HPI Per Admitting Provider This is a 66-year-old male with PMHx of HTN, HLD, DM type II, history of PE who presents with acute onset of dizziness which started Thursday night. He reports that yesterday morning his symptoms of near syncopal event prompted him to come to the ER. He was however seen no specific findings were found, chest x-ray was clear, blood work was within normal limits, negative orthostatics, was given 1 L of fluid to hydrate him and was sent home after his symptoms of dizziness improved. He represents today with similar symptoms. 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 Denies any trauma to his head. He presents to the ER with his today. Patient is concerned that this is possibly BPPV as he has had it before. Of note he had a viral cold last week, and had taken an antihistamine for several days in a row, last time was on Thursday. He denies any residual congestion, sinus pressure, shortness of breath, chest pain, palpitations or flutter. He denies any focal weakness in his arms or legs, changes in vision, changes in speech. He has never had a stroke before, and takes baby aspirin and low-dose atorvastatin daily. He also took his morning antihypertensives including lisinopril and metoprolol succinate 25 mg. Reports that his daughter is a PA-C and works within the allergy department and also recommended he be checked out at the ER. He denies any history of smoking, drinks alcohol, 2-3 beers per week, last time drank beer was on evening. He does not routinely exercise with cardio or strength training, but walks every day at his job. Admission Exam Per Admitting Provider Physical Exam:General: awake, alert, no apparent distress Head: Normocephalic, atraumatic ENT: PERRL, EOMI, no pharyngeal exudate, mucous membranes moist Chest: Clear to auscultation, on room air, no adventitious breath sounds Cardiac: Regular rate and rhythm, + faint systolic murmur, no JVD, normal peripheral pulses, good capillary refill Abdominal: NABS x 4 quadrants, soft, nondistended, nontender to palpation, no rebound or guarding Extremities: Normal inspection, no peripheral edema or erythema, calfs nontender to palpation Psych: Normal mood and affect Neuro: AAO x 3, strength intact bilaterally and rated 5/5, no motor deficits, speech is clear, no peripheral sensory deficits Principal Diagnosis Dizziness with syncope, could be secondary to labyrinthine disease, no stroke and/or TIA, hypertension, type 2 diabetes Discharge Exam Sitting at the edge of the bed without any distress Constitutional well developed, well nourished and average body habitus; not ill appearing Eyes PERRL, conjunctivae normal, anicteric sclerae ENMT external ear and nose normal, oropharynx normal Neck trachea midline, no thyromegaly Respiratory no respiratory distress Auscultation: lungs clear to auscultation bilaterally Cardiovascular Rate/Rhythm: regular rate, regular rhythm and + bradycardic Heart Sounds: normal S1 and normal S2; no murmur Extremities: no edema Gastrointestinal (Abdomen) Inspection/Auscultation: normal bowel sounds; abdomen not distended Percussion/Palpation: abdomen soft; abdomen nontender Psychiatric A+Ox3, euthymic affect Lymphatic no cervical or axillary lymphadenopathy Discharge Data Allergies Allergy/AdvReac Type Severity Reaction Status Date / Time ceftriaxone Allergy Intermediate HIVES, Verified 01/13/22 14:26 SWELLING, ITCHING OF THROAT Consultations 01/13/22 14:13 ED Decision to Admit Stat 01/13/22 15:52 Consult Neurology Routine Ordered Studies 01/13/22 11:14 CT angio head w con Stat CT angio neck with con Stat 01/13/22 18:20 MR brain wo/w con Routine Hospital Course (1) Episode of syncope: - Admit to tele - Pt complaint of dizziness, possible BPPV, vasovagal episode or acute labrynt hitis with recent cold symptoms and post viral effect. - No leukocytosis, afebrile so does not appear to be infectious in nature - stroke orderset completed - Neuro consulte-appreciate input and recommendation - Check 2D echo: LV is normal in size with normal wall thickness and without any wall motion abnormality, EF 60 to 65%, there is no significant valvular disease and injection of contrast documented no interatrial shunt -Hemoglobin A1c is 6.5 and lipids are unremarkable with LDL cholesterol being 66 - Will check MRI brain w/wo contrast-negative for any acute events - PT/OT consults : perform Carri maneuver after MRI if negative -Underwent PT evaluation and Carri maneuver showed improvement of his symptoms -No evidence of postural hypotension -Will be discharged home this afternoon with the Zio patch as an outpatient (2) Hypertension: - Continue lisinopril and metoprolol - Check orthostatics (3) HLD (hyperlipidemia): - Increase statin from 20 to 80s - am lipid panel (4) DM II (diabetes mellitus, type II), controlled: - ISS with accuchecks achs - A1C 6.7 - hold metformin DVT ppx: teds, scds CODE: FULL Dispo: From home, likely to remain in the hospital overnight and be discharged tomorrow. Total Time Total Time Spent Total Time Spent (In Minutes): 35 minutes Discharge Plan Discharge Items Patient Disposition: Home - Self-Care Reason For Visit: SYNCOPAL EPISODE Discharge Diagnosis: Dizziness with syncope, could be secondary to labyrinthine disease, no stroke and/or TIA, hypertension, type 2 diabetes Condition on Discharge: Good Activity: Resume your previous activity Non-emergency contact: Primary Care Provider Call non-emergency contact if: you have any medication questions and your symptoms worsen Follow-up/Referrals: Micah Cline, [Primary Care Provider] - (Date & Time 01/16/2022 10:00 AM Provider Jac Cruz PA-C Department General Internal Medicine [facility] ) Diet: Carb Consistent or DM2 Addtl Attending Provider Instructions: Please take precautions to avoid fall Try to drink more fluid Try meclizine as needed for dizziness Please keep appointments with your healthcare providers Pending Studies at Discharge: No Stand-Alone Forms: [employer], Smoking Cessation Medications and DC Order Prescriptions: New meclizine 12.5 mg tablet 12.5 mg PO TID PRN (Reason: dizziness) Qty: 20 RF: 0 Continued lisinopril 20 mg Tablet 20 mg PO QAM Qty: 0 RF: 0 multivitamin Tablet 1 tab PO QAM Qty: 0 RF: 0 atorvastatin 20 mg tablet 20 mg PO HS RF: 0 aspirin 81 mg Tablet,Delayed Release (Dr/Ec) 81 mg PO QAM RF: 0 tamsulosin 0.4 mg capsule 0.4 mg PO QAM RF: 0 metoprolol succinate 25 mg tablet extended release 24 hr 25 mg PO QAM RF: 0 metformin 500 mg tablet extended release 24 hr 500 mg PO BIDM RF: 0 Discharge Orders: Discharge Order (Routine); Ordered 01/14/22 Ordered By: Griselda Maier Admission Data Admit Date/Time: 01/13/22 14:20 Attending Provider: Griselda Maier Admit Provider: Griselda Maier Primary Care Provider: Micah Cline Other Providers: Griselda Maier ; Linda Marte Other Interventions: Discharge Summary Assessment (RN) Last Done: 01/14/22 14:32
== END 2022-01-14 15:29 | disposition home or self-care (01) ==
LOC: ED 10:27 → 2N 10:27

== ENCOUNTER 2022-08-21 08:44 | Observation (INO) ==
--- NOTE | 2022-08-05 10:17 | PAT Medication Instructions ---
Medication Instructions Date of Service August 05, 2022 Home Medications Medication Instructions Recorded meclizine 12.5 mg tablet 12.5 mg PO TID PRN dizziness #20 01/14/22 tabs lisinopril 20 mg tablet 20 mg PO QAM multivitamin 1 tab PO QAM aspirin 81 mg tablet,delayed release 81 mg PO QAM atorvastatin 20 mg tablet 20 mg PO HS metformin 500 mg tablet,extended release 24 hr 500 mg PO BIDM metoprolol succinate 25 mg tablet,extended release 24 hr 25 mg PO QAM tamsulosin 0.4 mg capsule 0.4 mg PO QAM meclizine 12.5 mg tablet 12.5 mg PO TID PRN dizziness ibuprofen 200 mg tablet 200 mg PO Q6H PRN Pain naproxen sodium 220 mg tablet (Aleve) 220 mg PO QAM ASK your surgeon for instructions ibuprofen 200 mg tablet 200 mg PO Q6H PRN Pain naproxen sodium 220 mg tablet (Aleve) 220 mg PO QAM DO NOT take the morning of surgery lisinopril 20 mg tablet 20 mg PO QAM multivitamin 1 tab PO QAM metformin 500 mg tablet,extended release 24 hr 500 mg PO BIDM Take morning of surgery With a small sip of water, OTHERWISE NOTHING TO EAT OR DRINK AFTER MIDNIGHT: aspirin 81 mg tablet,delayed release 81 mg PO QAM (continue as normal unless told otherwise by surgeon) metoprolol succinate 25 mg tablet,extended release 24 hr 25 mg PO QAM tamsulosin 0.4 mg capsule 0.4 mg PO QAM meclizine 12.5 mg tablet 12.5 mg PO TID PRN dizziness (if needed) Take evening before surgery atorvastatin 20 mg tablet 20 mg PO HS metformin 500 mg tablet,extended release 24 hr 500 mg PO BIDM meclizine 12.5 mg tablet 12.5 mg PO TID PRN dizziness (if needed) Other Notes If you have any questions please call us at [phone] or [phone] or [phone] or [phone]
--- NOTE | 2022-08-12 09:27 | Anesthesiology Consultation ---
Date of Service August 12, 2022 Assessment & Plan (1) Encounter for pre-operative examination: - Check BSG AM DOS - COVID screening: Per assessment on 08/04: No known COVID-19 positive contacts or current COVID-19 related symptoms. Travel screen negative. Patient vaccinated. Patient was Covid positive 05/15/22- no symptoms (DOS greater than 90 days from positive home test). At surgeon discretion if preop Covid testing being done. - Outpatient joint assessment: Pt currently scheduled for inpatient pathway. If surgeon requests review for outpatient joint pathway, patient is not recommended candidate for outpatient joint program from anesthesia standpoint. - Hx difficult intubation: Per patient, noted with 2014 Achilles tendon repair [place] [facility] limited cervical ROM. Subsequent Left knee arthroscopy (11/01/15): LMA#5 at [facility]. No issues noted per post-op anesthesia progress note. - PCP office visit (07/23/22): "He has been a difficult intubation because he cannot bend his neck as needed. However with recent prior surgeries they have been able to do it. This was just with his achilles surgery. No other issues with surgery.. Pt with DT [ST] depressions on his EKG, will get follow-up testing and decide on clearance with this result. Will need non tread mill stress test because of his limitations of mobility. His history of difficult intubation should be noted for anesthesiology as well as his MTHFR mutation. More assertive anti-coagulation if he is unable to get back to mobility for any reason should be considered, especially if he is bed bound in any way." - Cardiology office visit (07/29/22): "Planning hip surgery in the near future. Preoperative ECG demonstrates new right bundle branch block. Stress testing recommended, however, denied by insurance company. Subsequently referred to Cardiology for further evaluation.. 66-year-old patient referred for preoperative cardiovascular evaluation due to abnormal ECG. Perioperative risk considered moderate due to limited functional capacity (<4 METS), hypertension, dyslipidemia, DM-2, and abnormal ECG. Exercise stress testing can not be performed for further evaluation due to limited mobility secondary to hip discomfort.. History of provoked pulmonary embolus in the setting of immobilization 2013. + MTHFR mutation.. Recommend dobutamine stress echocardiography for further risk stratification prior to orthopedic surgery. " - Awaiting cardiology-ordered stress test (scheduled 08/14; [facility]). Awaiting final cardiology ([facility]/Dr. Lopez) and PCP ([facility]/Dr. Cline) preop recommendations. Chart Review Chart Review: Patient seen in Pre Admission Testing Teaching & Discussion Pre-Anesthesia Teaching/Discussion Notes: Instructed NPO after midnight before surgery,except medications with 15 cc of water. Medication instructions provided according to the PAT guidelines. History Surgery Operation Date: 08/21/22 07:00 Proposed Procedures p Left Total Hip Arthroplasty Uncemented - Dean Wellington MD Height/Weight Height: 5 ft 10 in Weight: 89.7 kg Allergies Allergy/AdvReac Type Severity Reaction Status Date / Time ceftriaxone Allergy Intermediate Hives, Verified 08/05/22 09:32 swelling, throat itching Medications Home Medications Medication Instructions Recorded Confirmed Last Taken lisinopril 20 mg tablet 20 mg PO QAM #0 tabs 06/27/14 08/04/22 01/13/22 multivitamin 1 tab PO QAM #0 tabs 10/15/15 08/04/22 01/13/22 aspirin 81 mg tablet,delayed 81 mg PO QAM 01/12/22 08/04/22 01/13/22 release atorvastatin 20 mg tablet 20 mg PO HS 01/12/22 08/04/22 01/12/22 metformin 500 mg tablet,extended 500 mg PO BIDM 01/12/22 08/04/22 01/13/22 release 24 hr metoprolol succinate 25 mg 25 mg PO QAM 01/12/22 08/04/22 01/13/22 tablet,extended release 24 hr tamsulosin 0.4 mg capsule 0.4 mg PO QAM 01/12/22 08/04/22 01/13/22 meclizine 12.5 mg tablet 12.5 mg PO TID PRN dizziness #20 01/14/22 08/04/22 Unknown tabs ibuprofen 200 mg tablet 200 mg PO Q6H PRN Pain 08/04/22 08/04/22 Unknown naproxen sodium 220 mg tablet 220 mg PO QAM 08/04/22 08/04/22 Unknown (Aleve) Past Medical History Medical History (Updated 08/12/22 @ 10:27 by Nunu Cyr) Cervical spinal stenosis Diabetes History of COVID-19 05/15/22- no symptoms HLD (hyperlipidemia) Hyperlipidemia Hypertension MTHFR gene mutation Per [facility] records PE (pulmonary embolism) 2013- Post-op Achilles tendon repair Vertigo Exercise / Class Metabolic Activity II 4-5 Yardwork/Stairs/Walk up hill (one FS (no CP, no SOB)) Past Family History Family History Father Heart disease Past Surgical History Surgical History (Updated 08/12/22 @ 10:43 by Nunu Cyr) Difficult airway for intubation Per patient, noted with 2013 Achilles tendon repair at [facility] limited cervical ROM. Subsequent Left knee arthroscopy (11/01/15): LMA#5 at [facility]. No issues noted per post-op anesthesia progress note. H/O laminectomy C3-C4 (1990) Hx of Achilles tendon repair Hx of arthroscopic knee surgery Hx of colonoscopy Social History Smoking Status: Never smoker Do You Dip or Chew Tobacco: No Hx Alcohol Use: Yes Alcohol type: beer alcohol intake frequency: a few times a month Hx Substance Use: No substance use type: does not use Review of Systems Patient denies chest pain, shortness of breath, dyspnea on exertion, fever, chills, cough, wheezing, palpitations. Physical Exam Vital Signs VITALS BP 121/75 P 62 TEMP 98.4 SP02 97%RA RESP 16 PHYSICAL Full cervical extension range of motion. Full TMJ range of motion. TMD 3 finger breaths Mallampati Score 3 Dentition: intact Lungs: clear throughout to auscultation Cardiac: regular rate and rhythm, no murmurs noted Spine: normal Carotid arteries: negative bruit Extremities: no edema Lab Results Anesthesia Preop Results Results Anesthesia Widget: WBC 6.35 K/ul (4.8-10.8) 08/12/22 Hgb 15.6 g/dl (14.0-18.0) 08/12/22 Hct 45.5 % (40.1-51.0) 08/12/22 Plt 228 K/uL (130-400) 08/12/22 PTT 28.2 Seconds (21.0-31.0) 08/12/22 Urine Color Yellow 08/12/22 Urine Appearance Clear (Clear) 08/12/22 Urine pH 5.5 (4.5-7.5) 08/12/22 Urine Specific [place] 1.011 (1.000-1.030) 08/12/22 Urine Protein Negative (Negative) 08/12/22 Urine Glucose (UA) Negative (Negative) 08/12/22 Urine Ketones Negative (Negative) 08/12/22 Urine Blood Trace (Negative) H 08/12/22 Urine Nitrite Negative (Negative) 08/12/22 Urine Bilirubin Negative (Negative) 08/12/22 Urine Urobilinogen Negative (Negative) 08/12/22 Urine Leukocyte Esterase Negative (Negative) 08/12/22 Urine WBC (Auto) 0 /hpf (0-5) 08/12/22 Urine RBC (Auto) 0-4 /hpf (0-4) 08/12/22 Urine Hyaline Casts (Auto) 0 /lpf (0-5) 08/12/22 Urine Epithelial Cells (Auto) 0-5 /lpf (0-5) 08/12/22 Urine Bacteria (Auto) Negative (Negative) 08/12/22 Blood Type B Positive 08/12/22 Antibody Screen NEGATIVE 08/12/22 Testing Laboratory Results 07/23/22 SODIUM 138 POTASSIUM 4.7 CHLORIDE 103 CO2 27 BUN 15 CREATININE 0.8 GLUCOSE 136 PT 13.5 INR 1.0 HGBA1C 6.8% Electrocardiogram Date: 07/23/22 Sinus bradycardia 57 bpm. Possible LAE. RBBB. Chest X-Ray Date: 01/12/22 FINDINGS: An AP, portable, upright chest radiograph is compared to study dated 10/15/2015 and correlated with chest CT dated 06/27/2014. The heart is top normal for projection. The lungs and pleural spaces are clear. No pneumothorax is seen. The bony thorax is grossly intact. Degenerative change is noted in the thoracic spine. IMPRESSION: No active disease in the chest. Echocardiogram Date: 01/14/22 EF 60-65%. No regional motion abnormality. No significant valvular disease. COVID-19 Risk Screen Screening Information COVID-19 Screen Date: 08/12/22 Exposure 21 Days Family/Household +COVID Last 21 Days: No Exposure 10 Days Any COVID Exposure Last 10 Days: No Symptoms Last 10 Days Experienced COVID Sx Last 10 Days: No + COVID 0-90 Days COVID + in Last 0-90 Days: Yes + COVID Test 0-10 Day: No + COVID Test 11-90 Day: Yes
[~2022-08-21 08:44] MED LIST: ACETAMINOPHEN 500 MG TAB PO SCH; BUPIVACAINE 0.5 % 5 MG/1 ML PF 10ML VIAL ONE; CLINDAMYCIN/D5W 900 MG/50 ML BAG IV SCH; CeleBREX 200 MG CAP PO SCH; FAMOTIDINE 20 MG TAB PO SCH; LR 500ML BOLUS, THEN 15ML/HR IV SCH; LR 60ML/HR IV SCH; ROPIVACAINE 0.5% HCL/PF 150 MG, BUPIVACAINE 0.75% MPF 20 ML, EPINEPHrine 0.15 MG, Ketor... INFIL SCH; Scopolamine 1 MG TDSY TD SCH; TRANEXAMIC ACID 1,000 MG **IV Intra-op IV SCH; TRANEXAMIC ACID 1,000 MG **IV Pre-op IV SCH; dexAMETHasone 4 MG TAB PO SCH; traMADol HCL 50 MG TABLET PO SCH
[2022-08-21] MEDS ORDERED: fentaNYL citrate 100 MCG/2 ML VIAL ONE (09:39)
[2022-08-21] MEDS ORDERED: MIDAZOLAM HCL 1 MG/ML 2ML VIAL ONE (09:39)
[2022-08-21] MEDS ORDERED: ONDANSETRON INJ 2 MG/ML 2 ML VIAL IV PRN ×2 (09:50→12:19)
[2022-08-21] MEDS ORDERED: ePHEDrine sulfate 50 MG/ML AMP IV PRN (09:50)
[2022-08-21] MEDS ORDERED: ATROPINE SULFATE 0.1 MG/ML 10ML SYR IV PRN (09:50)
[2022-08-21] MEDS ORDERED: ORTHO JOINT ANESTHETIC ONE (09:55)
--- NOTE | 2022-08-21 10:00 | History & Physical Bridge Note ---
Date of Service August 21, 2022 History & Physical Bridge Note I have examined the patient, reviewed the History & Physical and in the interval since the performance of the History & Physical I have noted the following changes of clinical significance: no changes noted
[2022-08-21] MEDS ORDERED: PROPOFOL IV EMULSION 10 MG/ML 20 ML VIAL IV ONE (10:36)
[2022-08-21] MEDS ORDERED: ePHEDrine sulfate 50 MG/ML AMP ONE (11:02)
--- NOTE | 2022-08-21 12:15 | Operative Report ---
Post Operative Report Pre & Post Diagnosis Operation Date: 08/21/22 11:20 Pre-Op Diagnosis: Left Hip Osteoarthritis Post-Op Diagnosis: Left Hip Osteoarthritis I identified the patient and participated in the time-out.: Yes Procedure Operation Date: 08/21/22 11:20 Actual Procedures p Left Total Hip Arthroplasty--Uncemented(Left) - Dean Wellington MD Surgeon Dean Wellington MD Bank Teller Machine Mechanic BIANKA Metzger PA-C. No resident or fellow was available to assist. Estimated Blood Loss 100 Findings Consistent with Post-Op Diagnosis Specimens Left femoral head Anesthesia Type Spinal MAC Complications none Disposition Disposition: Recovery Room Indications 66-year-old male with left hip osteoarthritis refractory to conservative management. X-rays demonstrate [id number] disease with extensive heterotopic ossification and enthesophytes noted on both hips. I had a long discussion with him about the risks and benefits of surgery, alternatives to surgery, and expected outcomes. His medical history is significant for diabetes, hyperten mohan, hyperlipidemia, and pulmonary embolism all which increases risk for complications after surgery which he understands. He was medically cleared for surgery. After reviewing all of his options he elected to proceed with surgery. All questions were answered. Informed consent was signed. Description of Procedure Patient was identified in the preoperative holding area where the surgical site, left hip, was marked. A spinal anesthetic was placed, then the patient was brought back to the main operating room, placed in the operating table and moved into the lateral decubitus position. Axillary roll was placed. All bony prominences were padded. Perioperative antibiotics and tranexamic acid 1 gram IV were administered. Operative extremity was prepped and draped in the normal sterile fashion. Prior to incision a multidisciplinary timeout was called. All in the room were in agreement. We began by making an incision for a posterior approach to the hip. We dissected down through subcutaneous tissues to the level of the fascia. The fascia was incised in line with the incision. Charnley bow was placed. Fatty tissue was reflected posteriorly off the back of the greater trochanter to expose the piriformis and short external rotators of the hip. The piriformis and short external rotators were dissected off the posterior aspect of the hip. A box cut was made in the capsule. Inferior hip capsule was released off the femur. The femoral head was dislocated. The femoral neck cut was made at our preoperative template. The acetabulum was then exposed. The labrum was sharply excised. Contents of the cotyloid fossa were removed with electrocautery. We then began reaming at a size 8 mm less than our preoperative template. We reamed up by 1 [address] increments [address] the way up to a size 56 mm cup. This gave us good bleeding cancellus bone circumferentially. The acetabulum was then irrigated out and dried. The real [place] Gription cup was then impacted down into position with 45 degrees of lateral opening and 25 degrees of anteversion. A single cancellous bone screw was placed up into the ilium. Excellent fixation was obtained. A trial liner for a 36 mm femoral head was then placed. Next we turned our attention to the femur. The lateral neck was removed with a box osteotome. Intramedullary guide was used followed by the lateralizing reamer. We then reamed up to a size 5 [place] stem. We then broached all the way up to a size 5. We began trialing with a standard offset neck and a +8.5 head. Hip was reduced. Leg lengths were felt to be a millimeter or 2 longer on the left. The hip was stable in extension and external rotation, and stable in the sleeper position. At 90 degrees of hip flexion the hip could be internally rotated 60 degrees before levering out of the cup. I was very happy with the stability exam. Therefore the hip was dislocated and the femoral trial was removed. The acetabulum was re-exposed, and the trial liner was removed. An Altrx polyethylene liner for a 36 mm femoral head was then impacted into the shell. The locking mechanism was checked to ensure that it had engaged which it had. The femur was re-exposed. The femoral canal was irrigated and dried. The real size 6 standard offset [place] femoral stem was opened up. This was impacted down into position. It sat at the same level as the femoral trial. Therefore the 36 mm ceramic femoral head with +8.5 mm offset was opened up and gently impacted down onto the trunnion. The hip was atraumatically reduced. Another 1 gram of IV tranexamic acid was started prior to closure. The wound was irrigated out with sterile Betadine solution. The periarticular injection cocktail was then placed. The short external rotators, piriformis, and posterior capsule were repaired through drill holes in the greater trochanter using #2 Vicryl. The fascia was run with a looped #1 PDS. The subcutaneous layer was closed with #1 PDS. The dermal layer was closed with 2-0 Vicryl. Zip line was used for the skin followed by a Silverlon dressing. A compressive dressing was then placed. The patient was then rolled supine. Leg lengths were rechecked and were symmetric. An abduction pillow was placed. Sedation was lifted and the patient was transferred to the recovery room in stable condition. Summary of implants: Depuy [place] Gription Acetabular Shell Sector Cup, 56 mm outer diameter [place] Cancellous bone screw, 6.5 x 30 mm [place] Altrx Polyethylene Acetabular Liner, Neutral, with a 36 mm inner diameter DePuy [place] Femoral stem with [place], 12/14 taper, size 5 standard offset 36 mm ceramic femoral head with +8.5 offset Postoperative course: Patient will be admitted to the hospital from the recovery room. Patient will be weightbearing as tolerated with posterior hip precautions. Xarelto for DVT prophylaxis I attest to the content of the Intraoperative Record and any orders documented therein. Any exceptions are noted below.
--- NOTE | 2022-08-21 12:18 | Operative Report ---
Post Operative Report Pre & Post Diagnosis Operation Date: 08/21/22 11:20 Pre-Op Diagnosis: Left Hip Osteoarthritis Post-Op Diagnosis: Left Hip Osteoarthritis I identified the patient and participated in the time-out.: Yes Procedure Operation Date: 08/21/22 11:20 Actual Procedures p Left Total Hip Arthroplasty--Uncemented(Left) - Dean Wellington MD Surgeon Dean Wellington MD Child Welfare Counselor BIANKA Metzger PA-C. No resident or fellow was available to assist. Estimated Blood Loss 100 Findings Consistent with Post-Op Diagnosis Specimens femoral head Description of Procedure I was present during the entire case assisting with positioning, prepping, draping, wound retraction, wound closure, dressing and abduction pillow placement. No fellow present. Please see Dr. Wellington procedure note for specifics of the case. I attest to the content of the Intraoperative Record and any orders documented therein. Any exceptions are noted below.
[2022-08-21] MEDS ORDERED: HYDROmorphone INJ 0.5 MG/0.5 ML SYR IV PRN (12:19)
[2022-08-21] MEDS ORDERED: ALUMINUM/MAGNESIUM SUSP 30 ML UDC PO PRN (12:19)
[2022-08-21] MEDS ORDERED: bisacodyL 10 MG SUPP PR PRN (12:19)
[2022-08-21] MEDS ORDERED: METOCLOPRAMIDE HCL INJ 5 MG/ML 2 ML VIAL IV PRN (12:19)
[2022-08-21] MEDS ORDERED: TAMSULOSIN HCL 0.4 MG CAP PO PRN (12:19)
[2022-08-21] MEDS ORDERED: MAGNESIUM HYDROXIDE SUSP 30 ML UDC PO PRN (12:19)
[2022-08-21] MEDS ORDERED: NALOXONE HCL 0.4 MG/1 ML VIAL/CARP IV PRN (12:19)
[2022-08-21] MEDS ORDERED: diphenhydrAMINE 50 MG/ML VIAL IV PRN (12:19)
[2022-08-21] MEDS ORDERED: MECLIZINE 12.5 MG TAB PO PRN (12:23)
[2022-08-21] MEDS: fentaNYL citrate 100 MCG/2 ML VIAL IV PRN ×3 (12:36→12:51)
--- NOTE | 2022-08-21 13:35 | Anesthesiology Progress Note ---
Date of Service August 21, 2022 Anesthesia Post Procedure Vital Signs Vital Signs: Temp Pulse Pulse Resp BP Pulse Ox O2 Del Method 08/21/22 13:15 68 12 129/73 95 Room Air 08/21/22 13:05 97.7 F 66 15 131/73 99 Room Air 08/21/22 12:55 80 10 L 142/74 H 93 Room Air 08/21/22 12:45 69 12 125/79 93 Room Air 08/21/22 12:35 71 14 138/75 95 Room Air 08/21/22 12:25 73 14 126/76 97 Room Air 08/21/22 12:16 97.7 F 78 16 125/75 99 Oxymask 08/21/22 09:17 98.1 F 60 20 151/81 H 98 Room Air O2 Flow Rate 08/21/22 13:15 08/21/22 13:05 08/21/22 12:55 08/21/22 12:45 08/21/22 12:35 08/21/22 12:25 08/21/22 12:16 5 08/21/22 09:17 Pain Intensity Left Hip: Pain Intensity: 2 Transfer of Care Handoff Completed per policy Notes Mental Status: alert / awake / arousable and participated in evaluation Patient Amnestic to Procedure: Yes Nausea / Vomiting: adequately controlled Pain: adequately controlled Airway Patency, RR, SpO2: stable & adequate BP & HR: stable & adequate Hydration State: stable & adequate Neuraxial Anesthesia: was administered and sensory block is resolving Anesthetic Complications: no major complications apparent and Pt Satisfied with anesthetic care
--- NOTE | 2022-08-21 14:10 | XRay Report ---
XR pelvis 1-2V routine HISTORY: 66 years-old Male In PACU - Post Surgical left hip total joint arthroplasty COMPARISON: 08/12/2022 TECHNIQUE: AP view of the pelvis FINDINGS: Left hip total joint arthroplasty. Expected postoperative soft tissue swelling with deep tissue air. No acute fracture or unexpected opaque foreign body. Severe right hip osteoarthritis. IMPRESSION: Left hip total joint arthroplasty with expected postoperative changes. ACT 112: Negative or not required by law. The above report was generated using voice recognition software. It may contain grammatical, syntax o r spelling errors. Electronically signed by: Yg Moore M.D. 08/21/2022 2:08 PM
[2022-08-21] MEDS: ACETAMINOPHEN 500 MG TAB PO SCH ×2 (14:20→21:04)
[2022-08-21] MEDS: SODIUM CHLORIDE 0.9% 1000ML 1,000 ML IV SCH (14:20)
[2022-08-21] MEDS ORDERED: DEXTROSE 50% 50 ML SYRINGE IV PRN (15:32)
[2022-08-21] MEDS ORDERED: GLUCAGON FOR INJ 1 MG VIAL SQ PRN (15:32)
[2022-08-21] MEDS ORDERED: GLUCOSE 10 TAB/TUBE PO PRN (15:32)
[2022-08-21] MEDS ORDERED: CARBOHYDRATES FOR HYPOGLYCEMIA PO PRN (15:32)
[2022-08-21] MEDS ORDERED: GLUCOSE 40% GEL 15 GM TUBE PO PRN (15:32)
[2022-08-21] MEDS: KETOROLAC TROMETHAMINE 15 MG/ML VIAL IV SCH ×2 (16:09→22:08)
[2022-08-21] MEDS: Scopolamine CHECK PATCH PLACEMENT SCH ×2 (16:09→23:40)
[2022-08-21] MEDS ORDERED: metFORMIN HCL ER 500 MG TABCR PO SCH (17:00)
[2022-08-21] MEDS: INSULIN ASPART PER UNIT SC SCH ×2 (17:35→21:01)
[2022-08-21] MEDS: CLINDAMYCIN/D5W 600 MG/50 ML BAG IV SCH (17:56)
[2022-08-21] MEDS ORDERED: TRANEXAMIC ACID / 0.7% NACL 1,000 MG/100 ML BAG IV SCH (18:30)
--- NOTE | 2022-08-21 19:34 | Hospitalist Consultation ---
Date of Consultation August 21, 2022 Assessment & Plan (1) Osteoarthritis of left hip: POD#[address] Wellington Activity and wound care orders as per ortho Pain control with bowel regimen PT/OT Monitor H/H for acute blood loss anemia and transfuse blood products PRN EBL 100cc (2) DM II (diabetes mellitus, type II), controlled: Hgb A1c 6.8 07/2022 Hold oral agents and utilize NovoLog per protocol while hospitalized (3) Hypertension: BP controlled, continue lisinopril and metoprolol (4) PE (pulmonary embolism): History of postoperative PE in 2013 s/p warfarin therapy Also with underlying MTHFR mutation On rivaroxaban for DVT prophylaxis per Ortho DVT prophylaxis Rivaroxaban as per Ortho Thank you for this consultation. We will follow the patient with you during their hospital stay. You can reach a member of the [facility] Hospitalist Team 06/04 via the [facility] Hospitalist role in [place] Text. Supervising Physician Co-Signing Physician Notes I have seen and examined the patient and have discussed the case with the provider above. I agree with the assessment and plan as stated. 66-year-old man status post left CECILY by Dr. Weber off recovering well postoperatively. His pain is well controlled. Medications and medical history reviewed. My physical exam reflects that listed above. Agree with the management as listed above. Thank you for this consultation and we will follow the patient with you during her hospital stay. DO Geraldo. History of Present Illness Reason for Consultation: Postop medical management Requesting Physician: Dr. Wellington Attending Physician: Dean Wellington MD History of Present Illness 66-year-old male with PMH DM type II, history of postoperative PE in 2014 s/p Coumadin therapy, MTHFR mutation, HTN, BPH, and other problems listed below who is s/p left CECILY today by Dr. Wellington. Postoperatively, the patient is doing well. He reports his pain is well controlled. Reports some mild residual BL LE numbness and tingling from spinal. Patient denies chest pain and shortness of breath. No lightheadedness or dizziness. Denies abdominal pain and nausea. Ball catheter is in place draining clear yellow urine. Allergies Allergy/AdvReac Type Severity Reaction Status Date / Time ceftriaxone Allergy Intermediate Hives, Verified 08/21/22 09:24 swelling, throat itching Home Medications Medication Instructions Recorded Confirmed Type lisinopril 20 mg tablet 20 mg PO QAM #0 tabs 06/27/14 08/21/22 History multivitamin 1 tab PO QAM #0 tabs 10/15/15 08/21/22 History aspirin 81 mg tablet,delayed 81 mg PO QAM 01/12/22 08/21/22 History release atorvastatin 20 mg tablet 20 mg PO HS 01/12/22 08/21/22 History metformin 500 mg tablet,extended 500 mg PO BIDM 01/12/22 08/21/22 History release 24 hr metoprolol succinate 25 mg 25 mg PO QAM 01/12/22 08/21/22 History tablet,extended release 24 hr tamsulosin 0.4 mg capsule 0.4 mg PO QAM 01/12/22 08/21/22 History meclizine 12.5 mg tablet 12.5 mg PO TID PRN dizziness #20 01/14/22 08/21/22 Rx tabs ibuprofen 200 mg tablet 200 mg PO Q6H PRN Pain 08/04/22 08/21/22 History naproxen sodium 220 mg tablet 220 mg PO QAM 08/04/22 08/21/22 History (Aleve) Patient History Medical History Achilles tendinitis Atherosclerosis of left carotid artery Cervical spinal stenosis Diabetes Faustina's deformity History of COVID-19 05/15/22- no symptoms HLD (hyperlipidemia) Hyperlipidemia Hypertension MTHFR gene mutation Per [facility] records PE (pulmonary embolism) 2013- Post-op Achilles tendon repair Vertigo Surgical History Difficult airway for intubation Per patient, noted with 2013 Achilles tendon repair at [facility] 10/16 limited cervical ROM. Subsequent Left knee arthroscopy (11/01/15): LMA#5 at [facility]. No issues noted per post-op anesthesia progress note. H/O laminectomy C3-C4 (1990) Hx of Achilles tendon repair Hx of arthroscopic knee surgery Hx of colonoscopy Family History Father Heart disease Social History Smoking Status: Never smoker Tobacco Type: Cigarettes Second Hand Exposure: No; Do You Dip or Chew Tobacco: No; Tobacco Cessation Education Requested by Patient: No Hx Alcohol Use: Yes Alcohol type: beer Hx Substance Use: No Preferred Language: Austrian Communication Ability: Effective Decorating Equipment Setter Required: No Beliefs That Will Affect Care: None Current Living Situation: Spouse Feels Safe at Home: Yes Safety Concerns: Feels Safe At This Time Assistive Devices: Cane, Glasses, Hearing Aid - Bilateral, Walker and Wheelchair Review of Systems Review of Systems: ROS per HPI, all other systems reviewed and negative Physical Exam Constitutional: WD/WN, vitals as above Eyes: PERRL, conjunctivae normal, anicteric sclerae ENMT: external ear and nose normal, oropharynx normal Respiratory: normal respiratory effort, lungs clear to auscultation Cardiovascular: Rate/Rhythm: regular rate and regular rhythm Vessels: normal peripheral pulses Extremities: no edema Gastrointestinal (Abdomen): normal bowel sounds, soft, nontender, no hepatosplenomegaly Musculoskeletal: S/p left hip surgery, dressing CDI, CSM checks intact to LLE Skin: no rashes, warm and dry Neurologic: PERRL, EOMI, accommodation nl, no face palsy, no dysarthria Psychiatric: A+Ox3, euthymic affect Results & Data Results & Data ([facility]) Vital Signs (Past 12 Hours) Vital Signs Temp Pulse Pulse Resp BP Pulse Ox O2 Del Method 08/21/22 16:45 36.4 C L 69 16 138/71 98 Room Air 08/21/22 15:40 36.7 C 73 18 149/83 H 99 Room Air 08/21/22 14:14 36.5 C 67 18 153/76 H 97 Room Air 08/21/22 13:35 36.9 C 66 14 132/79 98 Room Air 08/21/22 13:15 68 12 129/73 95 Room Air 08/21/22 13:05 36.5 C 66 15 131/73 99 Room Air 08/21/22 12:55 80 10 L 142/74 H 93 Room Air 08/21/22 12:45 69 12 125/79 93 Room Air 08/21/22 12:35 71 14 138/75 95 Room Air 08/21/22 12:25 73 14 126/76 97 Room Air 08/21/22 12:16 36.5 C 78 16 125/75 99 Oxymask 08/21/22 09:17 36.7 C 60 20 151/81 H 98 Room Air O2 Flow Rate 08/21/22 16:45 08/21/22 15:40 08/21/22 14:14 08/21/22 13:35 08/21/22 13:15 08/21/22 13:05 08/21/22 12:55 08/21/22 12:45 08/21/22 12:35 08/21/22 12:25 08/21/22 12:16 5 08/21/22 09:17
[2022-08-21] MEDS: DOCUSATE SODIUM 100 MG CAP PO SCH (21:03)
[2022-08-21] MEDS: ATORVASTATIN 20 MG TAB PO SCH (21:03)
[2022-08-21] MEDS: SENNA 8.6 MG TAB PO SCH (21:04)
[2022-08-22] MEDS: oxyCODONE HCL IR 5 MG TAB (IMMEDIATE RELEASE) PO PRN ×3 (00:42→23:20)
[2022-08-22] MEDS: SODIUM CHLORIDE 0.9% 1000ML 1,000 ML IV SCH (01:21)
[2022-08-22] MEDS: CLINDAMYCIN/D5W 600 MG/50 ML BAG IV SCH (02:31)
[2022-08-22] MEDS: KETOROLAC TROMETHAMINE 15 MG/ML VIAL IV SCH ×2 (03:51→09:44)
[2022-08-22] MEDS: ACETAMINOPHEN 500 MG TAB PO SCH ×3 (05:27→21:18)
[2022-08-22 06:46] LABS: Basophils # (auto) 0.01 K/uL (0-0.2); Basophils % (auto) 0.1 %; Hematocrit (blood only) 40.9 % (40.1-51.0); Immature Granulocytes # (auto) 0.05 K/uL (0.00-0.02); Immature Granulocytes % (auto) 0.4 %; Lymphocytes # (auto) 0.68 K/uL (1.2-3.4); Lymphocytes % (auto) 5.5 %; Mean Corpuscular Hemoglobin 30.6 pg (25.0-34.0); Mean Corpuscular Hgb Conc 34.2 g/dL (32.0-36.0); Mean Corpuscular Volume 89.5 fL (80.0-100.0); Mean Platelet Volume 10.4 fL (9.4-12.4); Monocytes # (auto) 0.78 K/uL (0.24-0.82); Monocytes % (auto) 6.3 %; Neutrophils % (auto) 87.7 %; Platelet Count 211 K/uL (130-400); RDW Coefficient of Variation 12.8 % (11.5-14.5); RDW Standard Deviation 41.7 fL (36.4-46.3); Red Blood Count 4.57 M/uL (4.63-6.08); White Blood Count 12.42 K/ul (4.8-10.8)
[2022-08-22 07:10] LABS: BUN Creatinine Ratio 24.3 (10-20); Calcium 8.3 mg/dl (8.5-10.1); Creatinine Clr Calc Pharmacy 109.6 ml/min; Est GFR (African American) 111.4 ml/min; Est GFR (Non-African American) 96.1 ml/min; Potassium 4.1 mmol/L (3.5-5.1)
[2022-08-22] MEDS: Scopolamine CHECK PATCH PLACEMENT SCH ×3 (08:34→22:42)
[2022-08-22] MEDS: DOCUSATE SODIUM 100 MG CAP PO SCH ×2 (08:35→21:18)
[2022-08-22] MEDS: ASPIRIN 81 MG ECTAB PO SCH (08:35)
[2022-08-22] MEDS: METOPROLOL SUCC 25MG EXT REL TAB PO SCH (08:35)
[2022-08-22] MEDS: MULTIVITAMIN TAB PO SCH (08:35)
[2022-08-22] MEDS: TAMSULOSIN HCL 0.4 MG CAP PO SCH (08:36)
[2022-08-22] MEDS: RIVAROXABAN 10 MG TABLET PO SCH (08:36)
[2022-08-22] MEDS: lisinopril 20 MG TAB PO SCH (08:36)
[2022-08-22] MEDS: INSULIN ASPART PER UNIT SC SCH ×4 (08:37→21:16)
[2022-08-22] MEDS ORDERED: NON-FORMULARY MEDICATION (Multivitamin Tablet) PO SCH (09:00)
--- NOTE | 2022-08-22 09:56 | Orthopedic Progress Note ---
Date of Service August 22, 2022 Assessment & Plan (1) S/P total left hip arthroplasty: Plan: Total hip precautions reviewed Weightbearing as tolerated with walker assistance Abduction pillow use x6 weeks postoperatively Keep Silverlon dressing in place until 2-week follow-up Ice with easy wrap Pain control with p.o. medication DVT prophylaxis with Xarelto and ANDRÉS stockings Plan is to discharge home today with in-home physical therapy for the first 2 weeks postoperatively. This will depend on removal of the urinary catheter and patient being able to void without issue. Patient is already scheduled for his 2-week postoperative follow-up visit at [facility] orthopedics With questions contact our clinic at [phone] Admission and Anticipated Discharge Date Admission Date: August 21, 2022 Subjective This 66-year-old male is seen today for his day 1 follow-up after undergoing a left total hip arthroplasty. Patient states his pain is well controlled with p.o. pain medication. He states his biggest issue is that he was unable to void and had to have a catheter placed. He states that he was on Flomax before surgery and I did order yesterday as a postoperative medication. Patient states that he has had issues with urinary retention in the past. Overall he states that his hip feels great. He states he completed physical therapy this morning without issue. He hopes to have the catheter removed. He would like to go home today as long as he is able to void. Currently he denies chest pain, shortness of breath, fever, chills, sweats, lethargy or numbness or tingling in his left lower extremity. Review of Systems Review of Systems: All systems reviewed & are unremarkable except as noted in Subjective Physical Exam Physical Exam: Left hip: Silverlon dressing is clean dry and intact. Patient is able to perform an active straight leg raise test. He is able to actively dorsi and plantarflex foot without issue. Quad strength is 3+ out of 5. He has no pain with logrolling. He has no pain with light passive hip flexion to 90 degrees. He does experience slight twinge of pain with light passive external rotation but no issues with light passive internal rotation of his lower extremity. Patient is neurovascularly intact in the left lower extremity. Results & Data ([facility]) Vital Signs (Past 12 Hours) Vital Signs Temp Pulse Pulse Resp BP Pulse Ox O2 Del Method 08/22/22 07:17 36.8 C 68 20 122/76 99 Room Air 08/22/22 03:08 36.9 C 73 16 135/70 96 Room Air Diagnostic Findings Laboratory Results WBC 12.42 K/ul (4.8-10.8) H 08/22/22 05:56 RBC 4.57 M/uL (4.63-6.08) L 08/22/22 05:56 Hgb 14.0 g/dl (14.0-18.0) 08/22/22 05:56 Hct 40.9 % (40.1-51.0) 08/22/22 05:56 MCV 89.5 fL (80.0-100.0) 08/22/22 05:56 MCH 30.6 pg (25.0-34.0) 08/22/22 05:56 MCHC 34.2 g/dL (32.0-36.0) 08/22/22 05:56 RDW Std Deviation 41.7 fL (36.4-46.3) 08/22/22 05:56 RDW Coeff of Ankit 12.8 % (11.5-14.5) 08/22/22 05:56 Plt Count 211 K/uL (130-400) 08/22/22 05:56 MPV 10.4 fL (9.4-12.4) 08/22/22 05:56 Immature Gran % (Auto) 0.4 % 08/22/22 05:56 Neut % (Auto) 87.7 % 08/22/22 05:56 Lymph % (Auto) 5.5 % 08/22/22 05:56 [place] % (Auto) 6.3 % 08/22/22 05:56 Eos % (Auto) 0.0 % 08/22/22 05:56 Baso % (Auto) 0.1 % 08/22/22 05:56 Neut # (Auto) 10.90 K/uL (1.4-6.5) H 08/22/22 05:56 Lymph # (Auto) 0.68 K/uL (1.2-3.4) L 08/22/22 05:56 [place] # (Auto) 0.78 K/uL (0.24-0.82) 08/22/22 05:56 Eos # (Auto) 0.00 K/uL (0-0.50) 08/22/22 05:56 Baso # (Auto) 0.01 K/uL (0-0.2) 08/22/22 05:56 Immature Gran # (Auto) 0.05 K/uL (0.00-0.02) H 08/22/22 05:56 Sodium 135 mmol/L (136-145) L 08/22/22 05:56 Potassium 4.1 mmol/L (3.5-5.1) 08/22/22 05:56 Chloride 104 mmol/L (98-107) 08/22/22 05:56 Carbon Dioxide 25 mmol/L (21-32) 08/22/22 05:56 Anion Gap 6 (3-11) 08/22/22 05:56 BUN 18 mg/dl (6-23) 08/22/22 05:56 Creatinine 0.74 mg/dl (0.6-1.4) 08/22/22 05:56 Est Cr Clr Drug Dosing 109.6 ml/min 08/22/22 05:56 Est GFR ( Amer) 111.4 ml/min 08/22/22 05:56 Est GFR (Non-Af Amer) 96.1 ml/min 08/22/22 05:56 BUN/Creatinine Ratio 24.3 (10-20) H 08/22/22 05:56 Glucose 196 mg/dl (70-99(Fasting)) H 08/22/22 05:56 POC Glucose 181 mg/dl (70-99) H 08/22/22 08:28 Calcium 8.3 mg/dl (8.5-10.1) L 08/22/22 05:56 SARS-CoV-2, RNA, NAAT NEGATIVE (NEGATIVE) 08/21/22 09:05 Impressions Pelvis X-Ray 08/21/22 12:19 XR pelvis 1-2V routine HISTORY: 66 years-old Male In PACU - Post Surgical left hip total joint arthroplasty COMPARISON: 08/12/2022 TECHNIQUE: AP view of the pelvis FINDINGS: Left hip total joint arthroplasty. Expected postoperative soft tissue swelling with deep tissue air. No acute fracture or unexpected opaque foreign body. Severe right hip osteoarthritis. IMPRESSION: Left hip total joint arthroplasty with expected postoperative changes. ACT 112: Negative or not required by law. The above report was generated using voice recognition software. It may contain grammatical, syntax or spelling errors. Electronically signed by: Yg Moore M.D. 08/21/2022 2:08 PM
[2022-08-22] MEDS ORDERED: TAMSULOSIN HCL 0.4 MG CAP PO ONE (10:14)
--- NOTE | 2022-08-22 10:57 | Discharge Summary ---
Date of Service August 22, 2022 Admission HPI Per Admitting Provider History of Present Illness: Patient is a 66 Years year-old Male presenting today for their pre-operative history and physical examination prior to undergoing a left total hip arthroplasty with Dr Wellington The patient has failed conservative treatment for left hip, end stage osteoarthritis and is electing to proceeding with surgical intervention. Admission Exam Per Admitting Provider Physical Examination: General: Pt is well nourished, seated on the exam table AA&O, in NAD, calm and cooperative during exam HENT: Nontraumatic, no gross deformity, hearing and vision grossly in-tact, PERRL Neuro: Gross motor and sensory grossly in tact Heart: +S1, +S2, RRR, no murmurs appreciated Lungs: CTABL, no wheezing appreciated Musculoskeletal: Examination of the pelvis reveals no obvious asymmetry or deformity. He has focal pain with palpation along the anterior flexion crease of the left hip. He has no pain with palpation over the greater trochanter or IT band of either leg. No pain in his SI joint or gluteal musculature of either leg. There is very limited hip motion on the left. External rotation of only around 20 degrees, internal rotation to neutral, hip flexion to around 80 degrees. Full range of motion of his knee for flexion and extension. Varus alignment. He is ambulatory with a significant limp. Gross sensation is intact across both lower extremities by soft touch. Peripheral pulses are 2+. Principal Diagnosis left hip osteoarthritis Discharge Exam Left hip: Silverlon dressing is clean dry and intact. Patient is able to perform an active straight leg raise test. He is able to actively dorsi and thad ntarflex foot without issue. Quad strength is 3+ out of 5. He has no pain with logrolling. He has no pain with light passive hip flexion to 90 degrees. He does experience slight twinge of pain with light passive external rotation but no issues with light passive internal rotation of his lower extremity. Patient is neurovascularly intact in the left lower extremity. Discharge Data Allergies Allergy/AdvReac Type Severity Reaction Status Date / Time ceftriaxone Allergy Intermediate Hives, Verified 08/21/22 09:24 swelling, throat itching Consultations 08/20/22 10:30 Consult Hospitalist Routine Procedures Performed Operation Date: 08/21/22 11:20 Actual Procedures p Left Total Hip Arthroplasty--Uncemented(Left) - Dean Wellington MD Hospital Course (1) S/P total left hip arthroplasty: Patient had difficulty voiding after surgery yesterday. Medicine was consulted and recommended that patient receive a urinary catheter. Patient states that he has had issues with voiding in the past, but has not been urology. His catheter was removed earlier this morning. If he is able to void he can be discharged home. We recommend that he schedule appointment with urology for evaluation. Total hip precautions reviewed Weightbearing as tolerated with walker assistance Abduction pillow use x6 weeks postoperatively Keep Silverlon dressing in place until 2-week follow-up Ice with easy wrap Pain control with p.o. medication DVT prophylaxis with Xarelto and ANDRÉS stockings Plan is to discharge home today with in-home physical therapy for the first 2 weeks postoperatively. This will depend on removal of the urinary catheter and patient being able to void without issue. Patient is already scheduled for his 2-week postoperative follow-up visit at [facility] orthoped[facility] With questions contact our clinic at [phone] Total Time Total Time Spent Total Time Spent (In Minutes): 25 mins Discharge Plan Discharge Items Patient Disposition: Home - Home Health Services Reason For Visit: Left Hip Degenerative Joint Disease Discharge Diagnosis: Left Hip Degenerative Joint Disease Activity: As commented below Lifting: None Bathing: Keep incision dry Bathing Comment: may shower tomorrow Sexual Activity: Wait until after follow-up appointment Exercise/Sports: Wait until after follow-up appointment Driving/Machine Use: No driving until cleared by orthopedic podiatrist Weightbearing: Left weightbearing Weightbearing Comment: as tolerated with walker assistance Non-emergency contact: Surgeon Call non-emergency contact if: you have any medication questions, your pain is not controlled, your temperature is above 101.5, your wound has increased drainage and your wound pain has increased Follow-up/Referrals: Micah Cline, DO [Primary Care Provider] - (Office will call patient with appointment.) Diet: Carb Consistent or DM2 Addtl Attending Provider Instructions: Post-operative Instructions Dear Patient and Family/Friends, Before you are discharged from the hospital, it is important to know what to expect when you get home after surgery. To that end, we have created this sheet of discharge instructions which covers many commonly asked questions. Make sure you go through this sheet in its entirety with your nurse before you are discharged. Please note that we will go over the specifics of your surgery and recovery when you return for your first post-operative visit. Sincerely, Dr. Wellington Medications 1. Oxycodone 5 mg: take 1-2 tabs every 4-6 hours as needed for post operative pain control. A prescription for this medication will be sent to your pharmacy. 2. Xarelto 10 mg: take 1 tablet daily for 30 days post operatively for blood clot prevention. A prescription will be sent to your pharmacy. 3. Diclofenac Sodium 75 mg: take 1 tab twice daily for the first 30 days post operatively for pain and inflammation relief. A prescription for this medication will be sent to your pharmacy with 1 refill. 4. Aspirin 81 mg: increase your daily aspirin intake to twice daily for 30 days post operatively for blood clot prevention. 5. Extra Strength Tylenol 500 mg: take 2 tabs every 6-8 hours as needed for additional pain relief. Please purchase. Pain Expect to be in a fair amount of pain after surgery. Remember, our goal is not to eliminate your pain, but to make it tolerable. It is a good idea to stay ahead of your pain by taking the medications you were prescribed once you get home. Typically, the pain starts improving 3-7 days after surgery. You should start weaning off the narcotic pain medication (oxycodone, hydrocodone, hydromorphone, morphine) as soon as your pain improves. Please call our office if your pain is not adequately controlled. Ice Ice your operative site at least 5 times a day for 15-30 minutes at a time. Make sure you have a thin cloth between the ice or cooling unit and your skin to prevent campos bite. This is especially important if you received a nerve block. Continue icing your operative site for the first 5-7 days after surgery, then as needed. Diet/Nausea/Vomiting Start by drinking clear liquids and eating crackers. If you can tolerate this, then you may resume your normal diet. If you feel nauseated or vomit, take Zofran/ondansetron (if prescribed). Please call our office if you have intractable nausea or vomiting, or, if after hours, you may go to the Emergency Room for help. Constipation Constipation is a common side effect of narcotic pain medication. If you have not had a bowel movement within 2 days after surgery, we recommend purchasing an over the counter laxative such as Milk of Magnesia, Dulcolax, or Miralax from a local pharmacy, and taking it as instructed. Call our clinic if any questions. Nerve block The anesthesia team sometimes places a nerve block to help with post-operative pain control. This results in significant numbness and inability to move the extremity. The nerve block usually wears off in 8-12 hours, but sometimes can last up to 24 hours. Please call our office if you are still unable to move your extremity after 24 hours, unless you received a pain pump to take home. Nerve blocks typically wear off quickly, so start taking pain medication as soon as you start feeling soreness near your surgical site. Weight bearing and Range of Motion. Do not bear any weight through your operative extremity immediately after surgery. If you had upper extremity surgery, do not lift anything with that arm. If you are in a knee brace, keep it locked in place until your follow-up. We will discuss your weight bearing, range of motion, and lifting restrictions in detail at your first post-operative appointment. Continuous Passive Motion (CPM) Machine If you were prescribed a CPM machine, it will start after your first post-operative appointment, at which time we will give you instructions on the range of motion settings and duration of treatment Physical therapy You will be given a prescription for physical therapy or occupational therapy at your first post-operative appointment. Typically, patients start therapy within 1 week of surgery Wound care and showering We will inspect your wound at your first post-operative visit, and may do a dressing change at that time. Most patients will be in a water-proof dressing that is removed 14 days after surgery. It is normal to see some dried blood on the dressing. Do not remove your dressing, paper strips or sutures yourself unless you are given permission. Showering is allowed the day after surgery. Do not scrub or remove any dressings. The wound should not be submerged underwater (i.e. in a bathtub or pool) until 4 weeks after surgery ANDRÉS stockings If you were given white stockings, these are to be worn at all times except to shower (on both legs) for the first 2 weeks after surgery. Driving You may not drive while taking narcotic pain medication or while in a cast, splint, sling or brace. You, the patient, need to make the final determination about when you are safe to drive, however, the earliest you may consider driving after surgery is below: Hand/Wrist/Elbow Surgery: 3 days Shoulder Surgery: 2 weeks Hip,/Knee/Ankle Surgery: 4 weeks Fracture repair: 6 weeks Return to Work Your return to work depends on what surgery was done and what type of work you do. Please bring any paperwork your employer needs completed to your first post-operative visit. Also, bring a description of your job duties, as this helps us to understand what risks you may face at work. Travel Avoid long distance travel (greater than 1 hour) in airplanes and cars for the first 6 weeks after surgery. If you must travel, you need to have a Doppler ultrasound done before you travel to rule out a blood clot in your legs. Follow-up You should have a follow-up appointment already scheduled 1-2 days after surgery. If not, please contact our office to make this appointment before you leave the hospital. When to call the office It is normal to have swelling and bruising in the limb that was operated on. This will improve with time. It is also normal to have fevers for the first 2 days after surgery. Reasons you should call your doctor include: Uncontrolled pain; Nausea, vomiting, or constipation that does not improve with medication; Fevers over 101.5, chills, sweats; Drainage or bleeding from the wound; Foul odor; Spreading areas of redness; Any other concerns Pending Studies at Discharge: No Stand-Alone Forms: My [facility] Medications and DC Order Prescriptions: New Xarelto 10 mg Tablet 10 mg PO DAILY 30 Days Qty: 30 0RF oxycodone 5 mg tablet 5 mg PO Q4H Qty: 28 0RF diclofenac sodium 75 mg tablet,delayed release (DR/EC) 75 mg PO BID 30 Days Qty: 60 1RF Continued lisinopril 20 mg Tablet 20 mg PO QAM Qty: 0 multivitamin Tablet 1 tab PO QAM Qty: 0 atorvastatin 20 mg tablet 20 mg PO HS tamsulosin 0.4 mg capsule 0.4 mg PO QAM metoprolol succinate 25 mg tablet extended release 24 hr 25 mg PO QAM metformin 500 mg tablet extended release 24 hr 500 mg PO BIDM meclizine 12.5 mg tablet 12.5 mg PO TID PRN (Reason: dizziness) Qty: 20 0RF Changed aspirin 81 mg Tablet,Delayed Release (Dr/Ec) 81 mg PO BID 30 Days Qty: 60 0RF Discontinued naproxen sodium [Aleve] 220 mg Tablet 220 mg PO QAM ibuprofen 200 mg Tablet 200 mg PO Q6H PRN (Reason: Pain) Discharge Orders: Discharge Order (Routine); Ordered 08/22/22 Ordered By: Claude Metzger Admission Data Admit Date/Time: 08/21/22 12:19 Attending Provider: Dean Wellington Admit Provider: Dean Wellington Primary Care Provider: Micah Cline Other Providers: Marcio Ramos ; Melinda Lau
--- NOTE | 2022-08-22 13:45 | Hospitalist Progress Note ---
Date of Service August 22, 2022 Assessment & Plan (1) Osteoarthritis of left hip: Plan: POD#[address] Wellington Activity and wound care orders as per ortho Pain control with bowel regimen PT/OT Monitor H/H for acute blood loss anemia and transfuse blood products PRN EBL 100cc Pt w/ urinary retention post op on the background of prior h/o urinary retention/status left hip CECILY and use of scopolamine patch during perioperative period --> c/t flomax, dc scopalamine patch if possible, if not able to void on self, can put dinh catheter back in and DC on dinh, pt to follow up w/ urology in a week time to get the dinh catheter out. 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 (2) DM II (diabetes mellitus, type II), controlled: Plan: Hgb A1c 6.8 07/2022 Hold oral agents and utilize NovoLog per protocol while hospitalized (3) Hypertension: Plan: BP controlled, continue lisinopril and metoprolol (4) PE (pulmonary embolism): Plan: History of postoperative PE in 2013 s/p warfarin therapy Also with underlying MTHFR mutation On rivaroxaban for DVT prophylaxis per Ortho DVT prophylaxis Rivaroxaban as per Ortho Thank you for this consultation. We will follow the patient with you during their hospital stay. You can reach a member of the [facility] Hospitalist Team 06/04 via the [facility] Hospitalist role in [place] Text. Admission and Anticipated Discharge Date Admission Date: August 21, 2022 Subjective Pt seen and examined at bedside as a follow up of medical mx for OA left Hip s/p CECILY POD 1. Pt sitting up in chair, on RA, NAD, no new acute events overnight, reports eating ok, reports pain at left hip under control, pt has not been able to pass urine, was put on dinh at 3 am, will continue to assess. Offer no further complaints. Physical Exam Physical Exam: GENERAL: Alert and oriented x3. NAD, on RA. HEENT: No pallor, no icterus. Pupils equal, round and reactive to light. Oral mucosa moist. NECK: No JVD, no neck masses. HEART: S1 and S2 heard. Regular rate and rhythm. No murmur, no gallop. RESPIRATORY SYSTEM: Normal AP diameter. No accessory muscle use. No wheezing, no crackles. ABDOMEN: Soft, bowel sounds present, nontender, no distention. CENTRAL NERVOUS SYSTEM: No facial droop. Speech is clear. Obeys simple commands. Moves extremities. EXTREMITIES: No edema, no erythema seen. Left hip w/ clean dressing w/o soakage. Dinh cath in situ w/ brooke urine collection noted. Results & Data Results & Data ([facility]) Vital Signs (Past 12 Hours) Vital Signs Temp Pulse Pulse Resp BP BP Pulse Ox 08/22/22 11:51 36.7 C 67 18 124/70 99 08/22/22 07:17 36.8 C 68 20 122/76 99 08/22/22 03:08 36.9 C 73 16 135/70 96 O2 Del Method 08/22/22 11:51 Room Air 08/22/22 07:17 Room Air 08/22/22 03:08 Room Air
[2022-08-22] MEDS: SENNA 8.6 MG TAB PO SCH (21:18)
[2022-08-22] MEDS: ATORVASTATIN 20 MG TAB PO SCH (21:18)
[2022-08-23] MEDS: ACETAMINOPHEN 500 MG TAB PO SCH ×2 (06:12→13:13)
[2022-08-23] MEDS: Scopolamine CHECK PATCH PLACEMENT SCH (08:22)
[2022-08-23] MEDS: INSULIN ASPART PER UNIT SC SCH ×2 (09:17→13:02)
[2022-08-23] MEDS: MULTIVITAMIN TAB PO SCH (09:22)
[2022-08-23] MEDS: METOPROLOL SUCC 25MG EXT REL TAB PO SCH (09:22)
[2022-08-23] MEDS: DOCUSATE SODIUM 100 MG CAP PO SCH (09:22)
[2022-08-23] MEDS: ASPIRIN 81 MG ECTAB PO SCH (09:22)
[2022-08-23] MEDS: TAMSULOSIN HCL 0.4 MG CAP PO SCH (09:23)
[2022-08-23] MEDS: RIVAROXABAN 10 MG TABLET PO SCH (09:23)
[2022-08-23] MEDS: lisinopril 20 MG TAB PO SCH (09:24)
--- NOTE | 2022-08-23 12:26 | Hospitalist Progress Note ---
Date of Service August 23, 2022 Assessment & Plan (1) Osteoarthritis of left hip: Plan: POD#[address] Wellington Activity and wound care orders as per ortho Pain control with bowel regimen PT/OT EBL 100cc (2) Urinary retention: Plan: Patient found to have urinary retention after Ball was removed. Bladder scan was in the range of 400-600 which was post void. Patient denies any complaint or lower abdominal pain. Is able to void well without any difficulty. Patient does not want Ball to be placed. Discussed with patient regarding close follow-up with urology as outpatient for chronic urinary retention. Patient agrees for it. (3) DM II (diabetes mellitus, type II), controlled: Plan: Hgb A1c 6.8 07/2022 Hold oral agents and utilize NovoLog per protocol while hospitalized (4) Hypertension: Plan: BP controlled, continue lisinopril and metoprolol (5) PE (pulmonary embolism): Plan: History of postoperative PE in 2013 s/p warfarin therapy Also with underlying MTHFR mutation On rivaroxaban for DVT prophylaxis per Ortho DVT prophylaxis Rivaroxaban as per Ortho Thank you for this consultation. We will follow the patient with you during their hospital stay. You can reach a member of the [facility] Hospitalist Team 06/04 via the [employer] Hospitalist role in [place] Text. Admission and Anticipated Discharge Date Admission Date: August 21, 2022 Subjective Patient seen and examined at bedside. He is sitting up on the chair; not in any distress. Patient has been able to void well overnight; denies any discomfort. Review of Systems Review of Systems: All systems reviewed & are unremarkable except as noted in Subjective Physical Exam Physical Exam: GENERAL: Alert and oriented x3. NAD, on RA. HEENT: No pallor, no icterus. Pupils equal, round and reactive to light. Oral mucosa moist. NECK: No JVD, no neck masses. HEART: S1 and S2 heard. Regular rate and rhythm. No murmur, no gallop. RESPIRATORY SYSTEM: Normal AP diameter. No accessory muscle use. No wheezing, no crackles. ABDOMEN: Soft, bowel sounds present, nontender, no distention. CENTRAL NERVOUS SYSTEM: No facial droop. Speech is clear. Obeys simple commands. Moves extremities. EXTREMITIES: No edema, no erythema seen. Left hip w/ clean dressing w/o soakage. Results & Data Results & Data ([facility]) Vital Signs (Past 12 Hours) Vital Signs Temp Pulse Resp BP BP Pulse Ox O2 Del Method 08/23/22 09:24 54 L 106/68 08/23/22 07:48 36.4 C L 55 L 18 102/66 98 Room Air Laboratory Results Laboratory Results WBC 12.42 K/ul (4.8-10.8) H 08/22/22 05:56 RBC 4.57 M/uL (4.63-6.08) L 08/22/22 05:56 Hgb 14.0 g/dl (14.0-18.0) 08/22/22 05:56 Hct 40.9 % (40.1-51.0) 08/22/22 05:56 MCV 89.5 fL (80.0-100.0) 08/22/22 05:56 MCH 30.6 pg (25.0-34.0) 08/22/22 05:56 MCHC 34.2 g/dL (32.0-36.0) 08/22/22 05:56 RDW Std Deviation 41.7 fL (36.4-46.3) 08/22/22 05:56 RDW Coeff of Ankit 12.8 % (11.5-14.5) 08/22/22 05:56 Plt Count 211 K/uL (130-400) 08/22/22 05:56 MPV 10.4 fL (9.4-12.4) 08/22/22 05:56 Immature Gran % (Auto) 0.4 % 08/22/22 05:56 Neut % (Auto) 87.7 % 08/22/22 05:56 Lymph % (Auto) 5.5 % 08/22/22 05:56 [place] % (Auto) 6.3 % 08/22/22 05:56 Eos % (Auto) 0.0 % 08/22/22 05:56 Baso % (Auto) 0.1 % 08/22/22 05:56 Neut # (Auto) 10.90 K/uL (1.4-6.5) H 08/22/22 05:56 Lymph # (Auto) 0.68 K/uL (1.2-3.4) L 08/22/22 05:56 [place] # (Auto) 0.78 K/uL (0.24-0.82) 08/22/22 05:56 Eos # (Auto) 0.00 K/uL (0-0.50) 08/22/22 05:56 Baso # (Auto) 0.01 K/uL (0-0.2) 08/22/22 05:56 Immature Gran # (Auto) 0.05 K/uL (0.00-0.02) H 08/22/22 05:56 Sodium 135 mmol/L (136-145) L 08/22/22 05:56 Potassium 4.1 mmol/L (3.5-5.1) 08/22/22 05:56 Chloride 104 mmol/L (98-107) 08/22/22 05:56 Carbon Dioxide 25 mmol/L (21-32) 08/22/22 05:56 Anion Gap 6 (3-11) 08/22/22 05:56 BUN 18 mg/dl (6-23) 08/22/22 05:56 Creatinine 0.74 mg/dl (0.6-1.4) 08/22/22 05:56 Est Cr Clr Drug Dosing 109.6 ml/min 08/22/22 05:56 Est GFR ( Amer) 111.4 ml/min 08/22/22 05:56 Est GFR (Non-Af Amer) 96.1 ml/min 08/22/22 05:56 BUN/Creatinine Ratio 24.3 (10-20) H 08/22/22 05:56 Glucose 196 mg/dl (70-99(Fasting)) H 08/22/22 05:56 POC Glucose 114 mg/dl (70-99) H 08/23/22 12:08 Calcium 8.3 mg/dl (8.5-10.1) L 08/22/22 05:56 SARS-CoV-2, RNA, NAAT NEGATIVE (NEGATIVE) 08/21/22 09:05 Impressions Pelvis X-Ray 08/21/22 12:19 XR pelvis 1-2V routine HISTORY: 66 years-old Male In PACU - Post Surgical left hip total joint arthroplasty COMPARISON: 08/12/2022 TECHNIQUE: AP view of the pelvis FINDINGS: Left hip total joint arthroplasty. Expected postoperative soft tissue swelling with deep tissue air. No acute fracture or unexpected opaque foreign body. Severe right hip osteoarthritis. IMPRESSION: Left hip total joint arthroplasty with expected postoperative changes. ACT 112: Negative or not required by law. The above report was generated using voice recognition software. It may contain grammatical, syntax or spelling errors. Electronically signed by: Yg Moore M.D. 08/21/2022 2:08 PM
== END 2022-08-23 13:54 | disposition home health service (06) ==
LOC: ASU 08:44 → 3E 08:44

== ENCOUNTER 2023-10-29 07:42 | Observation (INO) ==
--- NOTE | 2023-10-21 16:22 | History & Physical Report ---
Date of Service October 21, 2023 Assessment & Plan (1) Osteoarthritis of right hip: Plan: PRE-OP Diagnosis: Right hip osteoarthritis Planned Procedure: Right total hip arthroplasty Plan: Patient is scheduled to undergo this procedure at the [facility] with a 23-hour observation admission with Dr. Wellington on October. Risks and complications of the procedure such as: Infection, bleeding, pain, scarring, nerve blood vessel damage, weakness, wound problems, stiffness, incomplete relief of symptoms, hardware failure, hardware loosening, wear, fracture, tendon or ligament injury, dislocation, leg length inequality, blood clots, Embolism, heart attack, stroke and were explained to the patient at his visit today. Informed consent to perform the procedure was obtained. Patient also understands risks of proceeding with surgical intervention during the COVID-19 pandemic. Currently he is asymptomatic and has not been in contact with anyone positive for the virus recently. Patient does not need to meet with PAT due to previously having left total hip arthroplasty, however we will need to obtain a CBC with differential, complete metabolic panel, PT/INR, urinalysis, urine culture and sensitivity, EKG, hemoglobin A1c and a nasal culture for MRSA. Patient will also need preoperative medical clearance from their primary care provider Dr. Cline. He is scheduled for that appointment on October 23 at 4 PM. Patient states that he plans on doing in-home physical therapy for the first 1 to 2 weeks postoperatively with [facility]. Patient states that he is already scheduled for outpatient physical therapy in our PT clinic. Patient already has a walker, raised toilet seat, shower chair and a hip kit. During today's visit we reviewed the total hip packet as well as precautions. We discussed discharge planning from the hospital. I provided paperwork to obtain a handicap placard for their vehicle. We discussed lectures offered by [facility] in regards to joint replacement surgery via Zoom patient states that he did these prior to his last hip surgery and does not feel that he needs to watch them again.. I advised the patient that upon discharge from hospital we will prescribe a narcotic pain medication and anti-inflammatory. Patient will also be on an Xarelto for blood clot prevention due to his previous history of pulmonary embolism. Patient will be scheduled for his 2-week postoperative follow-up visit with myself on November 11, 2023. This chart was completed utilizing [employer] voice recognition software. Grammatical errors, random word insertions, pronoun errors, and in complete sentences are an occasional consequence of the system. Any questions or concerns about the content, text, or information contained within the body of this dictation should be addressed directly to the physician for clarification. History of Present Illness Chief Complaint: Chief Complaint: Right hip pain Primary Care Provider: Micah Cline DO History of Present Illness (including history relevant to procedure): This 68-year-old male presents to the clinic today for his preoperative history and physical. Patient has a longstanding history of hip arthritis. Patient had his left hip replaced by Dr. Wellington back in August 2022. Patient states that he was doing very well following the left hip replacement but noticed that at the end of his golf season this year he had difficulty completing 18 holes due to the pain he experienced in his left hip. He has tried [id number] anti- inflammatory agents. He has done some rehab exercises that he did for his left hip without alleviation of his pain. He is electing to proceed with surgical intervention at this time. Review Of Systems: 12 point review of systems is performed and is unremarkable except for those things stated in the HPI and past medical history. Past Medical History: Problems: Diabetes Hypertension Hypercholesterolemia History of pulmonary embolism Procedure History Procedure Procedure Date Comments Cervical decompression at C4-C5 for spinal stenosis, Achilles tendon repair, knee arthroscopy Allergies and Sensitivities: Rocephin(Hives) Current Home Meds: (Last Updated 10/21 10:50) amoxicillin (amoxicillin 500 mg oral capsule) 2,000 mg PO As indicated one hour before dental and other procedures as directed aspirin (aspirin 81 mg oral delayed release tablet) 81 mg PO Daily atorvastatin (atorvastatin 20 mg oral tablet) 20 mg PO Daily lisinopril (lisinopril 20 mg oral tablet) TAKE 1 TABLET BY MOUTH IN THE MORNING metFORMIN (MetFORMIN (Eqv-Glucophage XR) 500 mg oral tablet, extended release) 1,500 mg total 1500mg dily metoprolol (Metoprolol Succinate ER 25 mg oral tablet, extended release) 25 mg PO Daily multivitamin (Multi Vitamin+) tamSULOsin (tamsulosin 0.4 mg oral capsule) TAKE 1 CAPSULE BY MOUTH IN THE MORNING Allergies Allergy/AdvReac Type Severity Reaction Status Date / Time ceftriaxone Allergy Intermediate Hives, Verified 11/03/22 08:55 swelling, throat itching Home Medications Medication Instructions Recorded Confirmed Type lisinopril 20 mg tablet 20 mg PO QAM #0 tabs 06/27/14 10/27/22 History multivitamin 1 tab PO QAM #0 tabs 10/15/15 10/27/22 History atorvastatin 20 mg tablet 20 mg PO HS 01/12/22 10/27/22 History metformin 500 mg tablet,extended 500 mg PO BIDM 01/12/22 10/27/22 History release 24 hr metoprolol succinate 25 mg 25 mg PO QAM 01/12/22 10/27/22 History tablet,extended release 24 hr tamsulosin 0.4 mg capsule 0.4 mg PO QAM 01/12/22 10/27/22 History aspirin 81 mg tablet,delayed 81 mg PO DAILY 10/27/22 11/03/22 History release Past Med/Surg History Medical History MTHFR gene mutation Per [facility] records History of COVID-19 05/15/22- no symptoms Diabetes Hyperlipidemia Vertigo Atherosclerosis of left carotid artery Cervical spinal stenosis HLD (hyperlipidemia) PE (pulmonary embolism) 2013- Post-op Achilles tendon repair Hypertension Faustina's deformity Achilles tendinitis Surgical History Hx of colonoscopy Difficult airway for intubation Per patient, noted with 2013 Achilles tendon repair at [facility] 10/16 limited cervical ROM. Subsequent Left knee arthroscopy (11/01/15): LMA#5 at [facility]. No issues noted per post-op anesthesia progress note. Hx of arthroscopic knee surgery Hx of Achilles tendon repair H/O laminectomy C3-C4 (1990) Family History Father Heart disease Social History Smoking Status: Never smoker Tobacco Type: Cigarettes Second Hand Exposure: No; Do You Dip or Chew Tobacco: No; Hx Alcohol Use: Yes Alcohol type: beer Alcohol Intake Frequency: 2-3 x/Week Hx Substance Use: No Preferred Language: Kiswahili Communication Ability: Effective [employer] Required: No Beliefs That Will Affect Care: None Current Living Situation: Spouse current occupational status: retired Feels Safe at Home: Yes Diet: regular caffeine: Yes Assistive Devices: Cane, Glasses and Hearing Aid - Bilateral Review of Systems All systems reviewed & are unremarkable except as noted in Subjective Physical Exam Physical Exam: Physical Exam: (relevant to the procedure, including heart and lung evaluation) General: Alert and oriented x 3 with proper grooming and hygiene Eyes: Pupils are equal and reactive to light with accommodation. Extraocular movements are intact Throat: Posterior oropharynx is clear with absence of edema, erythema or exudate. Dentition is appropriate Cardiac: Regular rate and rhythm with no murmurs or gallops appreciated Lungs: Clear to auscultation throughout with no wheezing, rales or rhonchi Abdomen: Nonobese, nondistended, nontender with NABS Extremities: Right hip: Flexion is limited to 90 degrees, internal rotation to 5 degrees, external rotation to 40 degrees. Patient has a positive Stinchfield test. He experiences tenderness to palpation over the groin area. Impingement test is positive. Patient is neurovascularly intact. Neuro: Cranial nerves II through XII are intact, with no motor or sensory deficit Skin: Normal in appearance with no open skin areas or discharge Results & Data Diagnostic Findings Studies (relevant to the procedure): X-ray imaging: AP pelvis, cross-table lateral, and right hip false profile views of the bilateral hips obtained today and personally interpreted by me show left CECILY hardware in good positioning with no evidence of complication. Evidence of right hip arthritis.
--- NOTE | 2023-10-26 08:30 | Anesthesiology Consultation ---
Date of Service October 26, 2023 Assessment & Plan (1) Encounter for pre-operative examination: Chart Review Chart Review: Acceptable Risk for Surgery and Patient seen in Pre Admission Testing - Check BSG AM DOS - Will leave to anesthesiologist discretion DOS if PTT needed (not done preoperatively) - Hx difficult intubation: Per patient, noted with 2013 Achilles tendon repair at [facility] 10/16 limited cervical ROM. Subsequent Left knee arthroscopy (11/01/15): LMA#5 at [facility]. No issues noted per post-op anesthesia progress note. - Patient is NOT an OPJ candidate -Infectious Disease screening: Per PAT nursing assessment on 10/23/23. No known infectious disease contacts in past 10 days or current infectious disease symptoms. No recent travel outside the country. Patient seen by PCP 10/23/23= patient seen for preop evaluation. History of PE.Will be on Xarelto after surgery per surgeon's orders. Revised Cardiac Risk Index scoreNo Risk Factors0.4% (95% CL: 0.10.8). STOP BANG score 2. Functional status is good (greater than 4 METS). Patient is low medical risk for listed procedure. Left CECILY 08/21/22= Done under SAB At L4-5 with two attempts. History Surgery Operation Date: 10/29/23 11:20 Proposed Procedures p Right Total Hip Arthroplasty - Dean Wellington MD Height/Weight Height: 5 ft 10 in Weight: 88.451 kg Allergies Allergy/AdvReac Type Severity Reaction Status Date / Time ceftriaxone Allergy Intermediate Hives, Verified 10/23/23 08:35 swelling, throat itching Medications Home Medications Medication Instructions Recorded Confirmed Last Taken lisinopril 20 mg tablet 20 mg PO QAM #0 tabs 06/27/14 10/23/23 08/20/22 06:00 multivitamin 1 tab PO QAM #0 tabs 10/15/15 10/23/23 08/14/22 07:00 atorvastatin 20 mg tablet 20 mg PO HS 01/12/22 10/23/23 08/20/22 21:30 metformin 500 mg tablet,extended 500 mg PO BID 01/12/22 10/23/23 08/20/22 19:00 release 24 hr metoprolol succinate 25 mg 25 mg PO QAM 01/12/22 10/23/23 08/21/22 07:00 tablet,extended release 24 hr tamsulosin 0.4 mg capsule 0.4 mg PO QAM 01/12/22 10/23/23 08/21/22 07:00 aspirin 81 mg tablet,delayed 81 mg PO QAM 10/27/22 10/23/23 Unknown release acetaminophen 650 mg tablet 650 mg PO Q6H PRN prn 10/23/23 10/23/23 Unknown ascorbic acid (vitamin C) 1,000 mg 1 g PO QAM 10/23/23 10/23/23 Unknown tablet (Vitamin C) Past Medical History Medical History (Updated 10/26/23 @ 08:40 by Linda Boss PA-C) Atherosclerosis of left carotid artery Atherosclerotic plaque with no evidence of hemodynamically significant stenosis of the carotid arteries per 01/2022 neck CTA Cervical spinal stenosis Diabetes Faustina's deformity History of COVID-19 05/15/22- no symptoms Hyperlipidemia Hypertension MTHFR gene mutation Heterozygous per [facility] records PE (pulmonary embolism) 2013- Post-op Achilles tendon repair Past Family History Family History Father Heart disease Past Surgical History Surgical History Difficult airway for intubation Per patient, noted with 2013 Achilles tendon repair at [facility] 10/16 limited cervical ROM. Subsequent Left knee arthroscopy (11/01/15): LMA#5 at [facility]. No issues noted per post-op anesthesia progress note. H/O laminectomy C3-C4 (1990) History of total hip arthroplasty Hx of Achilles tendon repair Hx of arthroscopic knee surgery Hx of colonoscopy Social History Smoking Status: Never smoker Do You Dip or Chew Tobacco: No Hx Alcohol Use: Yes Alcohol type: beer alcohol intake frequency: a few times a week Hx Substance Use: No substance use type: does not use Testing Laboratory Results 10/22/23= WBC: 5.81 H/H: 15.9/47.3 PLATELETS: 271 SODIUM: 138 POTASSIUM: 4.4 CHLORIDE: 103 CO2: 21 BUN: 16 CREATININE: 0.8 GLUCOSE: 161 HGB A1C: 7.1 PT: 13.4 INR: 1.0 UA: Negative URINE CULTURE: No significant growth Electrocardiogram Date: 10/23/23 Findings: + NSR @ (60bpm) RBBB When compared to EKG from Nov 05, 2022- no significant change per cardio Echocardiogram Date: 01/14/22 EF 60-65%. No regional motion abnormality. No significant valvular disease. Stress Test Date: 08/14/22 Type: DSE Resting EF: 55-59% Resting LV Function: normal Resting RWMA: + none DSE negative for inducible ischemia. MPHR 108% Stress EKG response showed no evidence of ischemia. No arrhythmias with stress LV wall motion with stress is normal Borderline cLVH Mild MR. Mild TR. No evidence of pulm HTN Other Testing Event monitor 11/25/22= minimum HR 49 bpm, maximum HR 184 bpm HR 73 bpm. Underlying rhythm was sinus rhythm. Bundle branch block/IVCD was present. 13 SVT runs occurred. Isolated SVE's were rare, SVE couplets were rare, SVE triplets were rare. Isolated VE's were rare, VE couplets were rare, and VE triplets were rare. Ventricular bigeminy was present. Cardio reviewed event monitorshows primarily sinus rhythm with average heart rate of 70 bpm. Did have 13 episodes of SVTlongest lasting 17 beats. No triggered symptoms. No atrial fibrillation seen. Continue metoprolol succinate 25 mg daily. No indication for anticoagulation at this time) Neck CTA 02/02/22= Atherosclerotic plaque with no evidence of hemodynamically significant stenosis of the carotid arteries. The vertebral arteries are patent bilaterally.
[~2023-10-29 07:42] MED LIST changes: -ACETAMINOPHEN 500 MG TAB PO SCH; -BUPIVACAINE 0.5 % 5 MG/1 ML PF 10ML VIAL ONE; -CLINDAMYCIN/D5W 900 MG/50 ML BAG IV SCH; -CeleBREX 200 MG CAP PO SCH; -FAMOTIDINE 20 MG TAB PO SCH; -LR 500ML BOLUS, THEN 15ML/HR IV SCH; -LR 60ML/HR IV SCH; +ROPIVACAINE 0.5% 5 MG/ML 30 ML VIAL ONE; -ROPIVACAINE 0.5% HCL/PF 150 MG, BUPIVACAINE 0.75% MPF 20 ML, EPINEPHrine 0.15 MG, Ketor... INFIL SCH; -Scopolamine 1 MG TDSY TD SCH; -TRANEXAMIC ACID 1,000 MG **IV Intra-op IV SCH; -TRANEXAMIC ACID 1,000 MG **IV Pre-op IV SCH; -dexAMETHasone 4 MG TAB PO SCH; -traMADol HCL 50 MG TABLET PO SCH
[2023-10-29] MEDS ORDERED: PROPOFOL IV EMULSION 10 MG/ML 100 ML VIAL IV ONE (08:05)
[2023-10-29] MEDS ORDERED: fentaNYL citrate PF 100 MCG/2 ML VIAL ONE (08:05)
[2023-10-29] MEDS ORDERED: MIDAZOLAM HCL 1 MG/ML 2ML VIAL ONE (08:05)
[2023-10-29] MEDS: LR 500ML BOLUS, THEN 15ML/HR IV SCH (08:35)
[2023-10-29] MEDS ORDERED: ATROPINE SULFATE 0.1 MG/ML 10ML SYR IV PRN (08:42)
[2023-10-29] MEDS ORDERED: ePHEDrine sulfate 50 MG/ML AMP IV PRN (08:42)
[2023-10-29] MEDS ORDERED: HYDROmorphone INJ 2 MG/ML SYR/VIAL IV PRN (08:42)
[2023-10-29] MEDS: LR 60ML/HR IV SCH (08:42)
[2023-10-29] MEDS ORDERED: fentaNYL citrate PF 100 MCG/2 ML VIAL IV PRN (08:42)
[2023-10-29] MEDS ORDERED: ONDANSETRON INJ 2 MG/ML 2 ML VIAL IV PRN ×2 (08:42→11:12)
[2023-10-29] MEDS: CeleBREX 200 MG CAP PO SCH (08:43)
[2023-10-29] MEDS: traMADol HCL 50 MG TABLET PO SCH (08:43)
[2023-10-29] MEDS: ACETAMINOPHEN 500 MG TAB PO SCH ×2 (08:43→17:44)
[2023-10-29] MEDS: Scopolamine 1 MG TDSY TD SCH (08:43)
[2023-10-29] MEDS: FAMOTIDINE 20 MG TAB PO SCH (08:43)
--- NOTE | 2023-10-29 08:46 | History & Physical Bridge Note ---
Date of Service October 29, 2023 History & Physical Bridge Note I have examined the patient, reviewed the History & Physical and in the interval since the performance of the History & Physical I have noted the following changes of clinical significance: no changes noted
[2023-10-29] MEDS: TRANEXAMIC ACID 1,000 MG **IV Pre-op IV SCH (08:56)
[2023-10-29] MEDS: CLINDAMYCIN/D5W 900 MG/50 ML BAG IV SCH (09:17)
[2023-10-29] MEDS ORDERED: LIDOCAINE 2% 2 ML VIAL/AMP(20MG/ML) INFIL ONE (10:20)
[2023-10-29] MEDS ORDERED: ONDANSETRON INJ 2 MG/ML 2 ML VIAL ONE (10:20)
[2023-10-29] MEDS: TRANEXAMIC ACID 1,000 MG **IV Intra-op IV SCH (10:22)
[2023-10-29] MEDS: ROPIVACAINE 0.5% HCL/PF 246 MG, Ketorolac (*for OR use only*) 30 MG, EPINEPHrine 30MG/3... INFIL SCH (10:24)
[2023-10-29] MEDS: ORTHO JOINT ANESTHETIC ONE (10:24)
--- OUTSIDE RECORDS SUMMARY | 2023-10-29 10:36 | External Medical Summary | Summary of Care ---
Author Name Unknown Organization [facility] Address [address] [address] Phone [phone] Care Team Providers Care Wire Spooler Name Role Phone Jo Brush DO Primary Care Provider [phone] Reason for Visit * Reason Comments eRx-Medication Refill Encounter Details Date Type Department Care Team (Late st Contact Info) Description 09/30/2023 Refill Family Practice [facility] [place] [address] Jo Brush DO 200 [facility] [place] [address] Pure hypercholesterolemia; HTN, goal below 140/90 Allergies Active Allergy Reactions Criticality Noted Date Comments Ceftriaxone High 01/12/2022 Other reaction(s): HIVES, SWELLING, ITCHING OF THROAT Rocephin Hives High 06/27/2014 with ankle surgery surgical prophylaxis documented as of this encounter (statuses as of 10/25/2023) Medications Medication Sig Dispensed Refills Start Date End Date Status aspirin 81 MG chewable tablet Take 1 Tab by mouth daily. with food. 100 Tab 5 10/02/19 17 Active Multiple Vitamins-Minerals (MULTIVITAMIN ADULT) CHEW Take 1 Tab by mouth daily. 0 Active ibuprofen (MOTRIN) 200 MG TabletIndications:pt taking 2 in morning and 2 in evening after meals Take 1 Tablet by mouth every 4 hours as needed for Pain. 0 Active Blood Gluc Meter Disp-Strips DeviceIndications:Type 2 diabetes mellitus with hemoglobin A1c goal of less than 7.0% ([facility]) Use to check blood sugar once daily E11.9 1 Each 0 10/24/19 21 Active Acetaminophen 500 MG Oral Tablet Take 1 Tablet by mouth every 6 hours as needed for Pain, Moderate. 30 Tablet 0 11/05/19 23 Active OneTouch Delica Plus [id number] Use to check blood sugar once daily. E11.9 100 Each 11 12/06/19 23 Active OneTouch Delica Lancets 33GIndications:Type 2 diabetes mellitus with hemoglobin A1c goal of less than 7.0% ([facility]) Use to check blood sugar once daily. E11.9 100 Each 3 12/06/19 23 Active Tamsulosin HCl 0.4 MG Oral Capsule (Flomax) Take 1 capsule by mouth in the morning 90 Capsule 3 04/08/20 23 Active metFORMIN HCl ER 500 MG Oral Tablet Extended Release 24 Hour (Glucophage XR)Indications:Type 2 diabetes mellitus with hemoglobin A1c goal of less than 7.0% ([facility]) Take 2 tablets by mouth once daily 180 Tablet 1 09/09/20 23 Active Additional Information Patient taking differently: 1,500 mg, Take 2 tablets by mouth once daily, Reported on 10/23/2023 [facility] In Vitro Strip (Glucose Blood)Indications:Type 2 diabetes mellitus with hemoglobin A1c goal of less than 7.0% ([facility]) USE STRIP TO CHECK GLUCOSE ONCE DAILY 100 Strip 1 09/09/20 23 Active Lisinopril 20 MG Oral Tablet (Prinivil)Indications:H TN, goal below 140/90 TAKE 1 TABLET BY MOUTH IN THE MORNING 90 Tablet 0 09/24/19 24 Active Atorvastatin Calcium 20 MG Oral Tablet (Lipitor)Indications:Pu re hypercholesterolemia TAKE 1 TABLET DAILY 90 Tablet 0 10/01/19 24 Active Metoprolol Succinate ER 25 MG Oral Tablet Extended Release 24 Hour (toPROL XL)Indications:HTN, goal below 140/90 TAKE 1 TABLET DAILY 90 Tablet 0 10/01/19 24 Active Metoprolol Succinate ER 25 MG Oral Tablet Extended Release 24 Hour (toPROL XL)Indications:HTN, goal below 140/90 TAKE 1 TABLET DAILY 90 Tablet 3 10/02/19 23 024 Discontinued Atorvastatin Calcium 20 MG Oral Tablet (Lipitor)Indications:Pu re hypercholesterolemia TAKE 1 TABLET DAILY 90 Tablet 0 07/02/20 23 024 Discontinued documented as of this encounter (statuses as of 10/25/2023) Active Problems Problem Noted Date Diagnosed Date Atherosclerosis of left carotid artery 4 HLD (hyperlipidemia) 10/23/2023 Primary osteoarthritis of both hips 10/23/2023 Type 2 diabetes mellitus wit h stage 1 chronic kidney disease, without long-term current use of insulin 2022 Arthritis of hip 06/27/2022 Spinal stenosis of lumbar region 10/23/2021 Type 2 diabetes mellitus wit h hemoglobin A1c goal of less than 7.0% 11/19/2016 Difficult intubation 04/10/2016 Overview: Previous cervical spine fusion History of colon polyps 11/27/2015 Overview: 11/26/2015: 2 mm polyp ascending colon, hyperplastic, repeat 10 years 09/04/2005: normal colon, repeat 10 years History of fusion of cervical spine 10/11/2015 History of pulmonary embolus (PE) 04/09/2015 Overview: 2015 ASSOCIATED WITH ANKLE SURGERY Heterozygous MTHFR mutation 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 06/27/2014 Overview: homocysteine level NL, negative for Leiden and prothrombin gene mutation History of basal cell carcinoma 05/31/2013 Neoplasm of uncertain behavior of skin 3 Dermatofibroma 12/06/2012 HTN, goal below 140/90 09/25/2008 FAMILY HISTORY OF CARDIOVASC DIS (ISCHEMIC) 01/12 Overview: father FAMILY HISTORY OF KIDNEY NEOPLASM 01/29/2005 Overview: TCC father Preglaucoma Cervical spinal stenosis documented as of this encounter (statuses as of 10/25/2023) Resolved Problems Problem Noted Date Diagnosed Date Resolved Date Methylenetetrahydrofolate re ductase deficiency 10/23/2021 11/05/2022 Pulmonary embolism 06/29/2014 5 Warfarin anticoagulation 06/27/201404/2015 Overview: Pulmonary embolism and 6 months treatment completes on 12/27/2014, suspected DVT RLE Neck pain on right side 06/17/201303/15 Multiple pigmented nevi 05/31/201303/15 Bolaños angioma 12/06/2012 04/05/2018 Other seborrheic keratosis 12/06/2012 0 04/05/2018 Obesity, Class I, BMI 30.0-3 4.9 (see actual BMI) 2012 11/22/2020 Encounter for examination fo r normal comparison and control in clinical research program 03/09/2012 02/15/2013 Overview: Diagnosis changed due to Research Module. Go to Snapshot for study details. ADVANCE DIRECTIVE INFORMATION 01/29/2005 04/05/2018 Overview: No, Advance Directive brochure given to patient at prior appointment. FAM HX-DIABETES MELLITUS 01/29/2005 Overview: father and mother documented as of this encounter (statuses as of 10/25/2023) Immunizations Name Administration Dates Next Due COVID-19 mRNA, LNP-s, No Pre serve, 2-Dose Series (Moderna) 11/15/2020,10/18/2020 COVID-19, mRNA, LNP-s, PF, B ooster, 100mcg/0.5mg (Moderna) 08/13/2021 Diptheria/Tetanus Adult (TD) 04/05/2018 Pneumococcal Conjugate Vacci ne, 20-valent ([id number]) 07/23/2022 Pneumococcal Polysaccharide PPV23 (Pneumovax) 05/07/2021,08/29/2011 Seasonal Influenza Virus Vac cine, Unspecified Formulation 06/18/2021,05/25/2020,07/12/2019,10/2017,05/29/2017,06/28/2016,06/01/20 14,06/28/2013,07/14/2012,06/14/2011,1 ,06/25/2009,06/14/2008 Seasonal Influenza, PF, 6 M & above, IM , (FluLaval or Fluzone) 05/25/2020,07/12/2019,06/15/2018,05/15 Seasonal Influenza, Quadriva lent Hd (Fluzone Hd) 06/18/2021 Seasonal Influenza, Quadriva lent Hd, 65+ Yrs 07/01/2022 Seasonal Influenza, Quadriva lent, No Preserve, IM 06/28/2015 Seasonal Influenza, Quadriva lent,with Preserve, 3 yr & above, IM 06/28/2016 Seasonal Influenza, Split, I IV3, With Preserve, Inj 06/01/2014,06/28/2013,07/14/2012,10/0 09/2010,06/14/2010,06/25/2009,06/14/20 08 TD, Preservative Free 04/05/2018 TDAP (age 11 and older)(Adacel) 03/07/2008 03/07/2018 Varicella Zoster Vaccine (Adult) 12/12/2016 Zoster Vaccine Recombinant (Shingrix) 04/23/2020 ,10/18/2019 documented as of this encounter Social History Tobacco Use Types Packs/Day Years Used Date Smoking Tobacco: Never Smokeless Tobacco: Never Comments:once a day since 05, twice a week Alcohol Use Standard Drinks/Week Comments Yes 1 (1 standard drink = 0.6 oz pur e alcohol) occ beer 1 x per week PHQ-2 Answer Date Recorded PHQ Adult Total Score 0 2022 Hunger Vital Sign Answer Date Recorded Within the past 12 months, y ou worried that your food would run out before you got the money to buy more. Never true 10/09/19 24 Within the past 12 months, t he food you bought just didn't last and you didn't have money to get more. Never true 10/09/2023 Sex and Gender Information Value Date Recorded Sex Assigned at Male 10/09/2023 10:18 AM EST Gender Identity Male 10/09/2023 10:18 AM EST Sexual Orientation Straight 10/09/2023 10 :18 AM EST Job Start Date Occupation Industry Not on file Not on file Not on file documented as of this encounter Miscellaneous Notes * Telephone Encounter - Sonia Kramer, construction sales manager - 10/25/2023 11:46 AM EST Received message from [facility] regarding patient needing labs. Placed call to patient to advise. Pt had ordered labs completed on 10/22/2023; no follow-up is needed. Thank you for your assistance Sonia Kramer Surgical Instrument Maker II [facility] (Formerly [employer]) 10/25/2023,11:46 AM * Telephone Encounter - Jayden Sosa [facility] - 10/01/2023 11:30 AM EST Signed Prescriptions: Disp Refills Atorvastatin Calcium 20 MG Oral Tablet (Li*90 Tab*0 Sig: TAKE 1 TABLET DAILY Authorizing Provider: JO BRUSH Ordering User: JAYDEN SOSA Metoprolol Succinate ER 25 MG Oral Tablet *90 Tab*0 Sig: TAKE 1 TABLET DAILY Authorizing Provider: JO BRUSH Ordering User: JAYDEN SOSA * Telephone Encounter - Jayden Sosa [facility] - 10/01/2023 11:27 AM EST 2nd attempt Provided 90 days supply with 0 refill(s) until upcoming appointment. Per refill protocol patient should have lipid panel on file within past year. Reviewed AMP report, Care Gaps/Health Maintenance, medications list, and for any routine labs typically ordered for this patient. Lab orders placed. Please contact patient to advise of labs ordered for blood draw AND URINE specimen (patient will have to be able to void to provide sample). Recommend patient to fast if able for labs. Patient may still have water and regular medications. Advise to obtain labs before requesting the next refill. Thank You, Jayden Sosa, Pharm-D Clinical Pharmacist [facility] (Formerly [employer]) [phone] 10/01/2023, 11:28 AM documented in this encounter Plan of Treatment Upcoming Encounters Date Type Department Care Team (Late st Contact Info) Description 12/16/2023 8:20 AM EDT Office Visit Family Practice [employer] 200 [facility] [place], [place] [address] Jo Brush DO 200 [facility] [place] [address] Scheduled Procedures Name Priority Associated Diagnoses Date/Ti me COLONOSCOPY FLEXIBLE PROXIMAL DIAGNOSTIC Recall Colon cancer screening Health Maintenance Due Date Last Done Comments Cologuard 2000 Fecal Occult Blood Test 2000 Sigmoidoscopy 2000 Hepatitis B (1 of 3 - Risk 3-dose series) 2015 B-12 10/17/2022 10/17/2021, 04/18/2020 Albumin/Creatinine Ratio 04/24/2023 022, 10/23/2020, 10/14/2019, Additional history exists COVID-19 Vaccine ( season) 2023 08/13/2021, 11/15/2020, 10/18/2020 Influenza Vaccine (FLU shot) (#1) 2023 07/01/2022, 06/18/2021, 06/18/2021, Additional history exists Depression Screening 2023 2022 HbA1c 04/21/2024 10/22/2023, 04/15, 10/27/2022, Additional history exists Diabetic Foot Exam 05/12/2024 05/12/2023, 1 09/22/2021, 10/23/2021, Additional history exists Diabetic Eye Exam 07/06/2024 07/06/2023, , 05/06/2021, Additional history exists GFR 10/22/2024 10/22/2023, 08/15, 07/23/2022, Additional history exists Colonoscopy 11/25/2025 11/26/2015, 09/04/2005 Colorectal Cancer Screening 11/25/2025 DTaP,Tdap,and Td Vaccines (4 - Td or Tdap) 04/05/2028 04/05/2018, 04/05/2018, 03/07/2008, Additional history exists Zoster Vaccines Completed 04/23/2020, 12/2019, 12/12/2016 Pneumococcal Vaccine: 65+ Years Completed 07/23/2022, 05/07/2021, 08/29/2011 GARDASIL-HPV IMMUNIZATION SERIES Aged Out No longer eligible based on patient's age to complete this topic MENINGOCOCCAL (MENACTRA/MENVEO) Aged Out No longer eligible based on patient's age to complete this topic documented as of this encounter Medical Devices Not on filedocumented as of this encounter Visit Diagnoses Diagnosis Pure hypercholesterolemia HTN, goal below 140/90 Unspecified essential hypertension documented in this encounter Care Teams Wire Spooler Relationship Specialty Start Date End Date Jo Brush DO [address] [place] [address] PCP - General Family Medicine 04/02/17 documented as of this encounter
--- OUTSIDE RECORDS SUMMARY | 2023-10-29 10:36 | External Medical Summary | Summary of Care ---
Author Name Unknown Organization [facility] Address [address] [place] [address] Phone [phone] Care Team Providers Care Process Manager Name Role Phone Micah Cline DO Primary Care Provider [phone] Reason for Visit * Reason Onset Date Comments Forms Request 10/26/2023 Encounter Details Date Type Department Care Team (Late st Contact Info) Description 10/26/2023 Telephone Family Practice [facility] 200 [facility] [place] [address] Micah Cline DO 200 [facility] [place] [address] Forms Request Allergies Active Allergy Reactions Criticality Noted Date Comments Ceftriaxone High 01/12/2022 Other reaction(s): HIVES, SWELLING, ITCHING OF THROAT Rocephin Hives High 06/27/2014 with ankle surgery surgical prophylaxis documented as of this encounter (statuses as of 10/26/2023) Medications Medication Sig Dispensed Refills Start Date End Date Status aspirin 81 MG chewable tablet Take 1 Tab by mouth daily. with food. 100 Tab 5 7 Active Multiple Vitamins-Minerals (MULTIVITAMIN ADULT) CHEW Take 1 Tab by mouth daily. 0 Active ibuprofen (MOTRIN) 200 MG TabletIndications:pt taking 2 in morning and 2 in evening after meals Take 1 Tablet by mouth every 4 hours as needed for Pain. 0 Active Blood Gluc Meter Disp-Strips DeviceIndications:Type 2 diabetes mellitus with hemoglobin A1c goal of less than 7.0% ([facility]) Use to check blood sugar once daily E11.9 1 Each 0 1 Active Acetaminophen 500 MG Oral Tablet Take 1 Tablet by mouth every 6 hours as needed for Pain, Moderate. 30 Tablet 0 3 Active OneTouch Delica Plus [id number] Use to check blood sugar once daily. E11.9 100 Each 11 3 Active OneTouch Delica Lancets 33GIndications:Type 2 diabetes mellitus with hemoglobin A1c goal of less than 7.0% ([facility]) Use to check blood sugar once daily. E11.9 100 Each 3 3 Active Tamsulosin HCl 0.4 MG Oral Capsule (Flomax) Take 1 capsule by mouth in the morning 90 Capsule 3 3 Active metFORMIN HCl ER 500 MG Oral Tablet Extended Release 24 Hour (Glucophage XR)Indications:Type 2 diabetes mellitus with hemoglobin A1c goal of less than 7.0% ([facility]) Take 2 tablets by mouth once daily 180 Tablet 1 3 Active Additional Information Patient taking differently: 1,500 mg, Take 2 tablets by mouth once daily, Reported on 10/23/2023 [facility] In Vitro Strip (Glucose Blood)Indications:Type 2 diabetes mellitus with hemoglobin A1c goal of less than 7.0% ([facility]) USE STRIP TO CHECK GLUCOSE ONCE DAILY 100 Strip 1 3 Active Lisinopril 20 MG Oral Tablet (Prinivil)Indications:HTN , goal below 140/90 TAKE 1 TABLET BY MOUTH IN THE MORNING 90 Tablet 0 4 Active Atorvastatin Calcium 20 MG Oral Tablet (Lipitor)Indications:Pure hypercholesterolemia TAKE 1 TABLET DAILY 90 Tablet 0 4 Active Metoprolol Succinate ER 25 MG Oral Tablet Extended Release 24 Hour (toPROL XL)Indications:HTN, goal below 140/90 TAKE 1 TABLET DAILY 90 Tablet 0 4 Active Vitamin C ER 1000-100 MG Oral Tablet Extended Release Take by mouth. 0 Active documented as of this encounter (statuses as of 10/26/2023) Active Problems Problem Noted Date Diagnosed Date [...] ASSOCIATED WITH ANKLE SURGERY Heterozygous MTHFR mutation [id number] 06/27/2014 Overview: homocysteine level NL, negative for Leiden and prothrombin gene mutation History of basal cell carcinoma 05/31/2013 Neoplasm of uncertain behavior of skin 3 Dermatofibroma 12/06/2012 HTN, goal below 140/90 09/25/2008 FAMILY HISTORY OF CARDIOVASC DIS (ISCHEMIC) 01/12 Overview: father FAMILY HISTORY OF KIDNEY NEOPLASM 01/29/2005 Overview: TCC father Preglaucoma Cervical spinal stenosis documented as of this encounter (statuses as of 10/26/2023) Resolved Problems Problem Noted Date Diagnosed Date [...] as of this encounter (statuses as of 10/26/2023) Immunizations Name Administration Dates Next Due COVID-19 mRNA, LNP-s, No Pre serve, 2-Dose Series (Moderna) 11/15/2020,10/18/2020 COVID-19, mRNA, LNP-s, PF, B ooster, 100mcg/0.5mg (Moderna) 08/13/2021 Diptheria/Tetanus Adult (TD) 04/05/2018 Pneumococcal Conjugate Vacci ne, 20-valent ([id number]) 07/23/2022 Pneumococcal Polysaccharide PPV23 (Pneumovax) 05/07/2021,08/29/2011 Seasonal [...] encounter Miscellaneous Notes * Telephone Encounter - Humera Mendiola LPN - 10/26/2023 12:08 PM EST The form was filled out Thursday and faxed with the office visit notes to [facility]. * Telephone Encounter - Oswaldo Ford OSA - 10/26/2023 12:01 PM EST Pt dropped off form to be completed by Dr. Cline before 10-29-2023 Would like form to be faxed over to [facility] once completed at fax on the bottom of form ([phone]) Pt would also like a confirmation call once form has been faxed over successfully at primary numberon file ([phone]) Form left in providers mailbox. documented in this encounter Plan of Treatment Upcoming Encounters Date Type Department Care Team (Late st Contact Info) Description 12/16/2023 8:20 AM EDT Office Visit Family Practice [facility] [place] [address] [facility] [place] [address] Micah Cline DO [address] [place] [address] Scheduled Procedures Name Priority Associated Diagnoses Date/Ti [...] Not on filedocumented as of this encounter Care Teams Process Manager Relationship Specialty Start Date End Date Micah Cline DO [address] [place] [address] PCP - General Family Medicine 04/02/17 documented as of this encounter
--- OUTSIDE RECORDS SUMMARY | 2023-10-29 10:36 | External Medical Summary ---
Author Name Unknown Address Unknown Organization K09:[facility] [address] [place] [address] Laboratory Report Ordering Provider Test Date Status ANNA STARR 10/22/2023 10:39:22 Final Observation Date Value Abnormality Reference (Units ) Status SYNC LEUKOCYTES IN BLOOD BY AUTOMATED COUNT 10/22/2023 10:39:22 5.81 4.00-10.80 (K/uL) Final Segs 10/22/2023 10:39:22 65.5 40.0-75.0 (%) Final Lymphs % 10/22/2023 10:39:22 26.3 18.0-42.0 (%) Final Monos 10/22/2023 10:39:22 6.5 1.0-11.0 (%) Final Eosinophils 10/22/2023 10:39:22 1.2 0.0-6.0 (%) Final Basos 10/22/2023 10:39:22 0.5 0.0-2.0 (%) Final Absolute Segs 10/22/2023 10:39:22 3.80 1.80-7.70 (K/uL) Final Lymphs, absolute 10/22/2023 10:39:22 1.53 1.00-4.80 (K/ul) Final Monos, Abs 10/22/2023 10:39:22 0.38 0.00-1.10 (K/uL) Final Eos, Abs 10/22/2023 10:39:22 0.07 0.00-0.70 (K/uL) Final Basos, Abs 10/22/2023 10:39:22 0.03 0.00-0.20 (K/uL) Final Performing Location [facility] [address] [place] [address]
--- OUTSIDE RECORDS SUMMARY | 2023-10-29 10:36 | External Medical Summary ---
Author Name Unknown Address Unknown Organization K09:[facility] [address] [place] [address] Laboratory Report Ordering Provider Test Date Status ANNA STARR 10/22/2023 10:39:22 Final Observation Date Value Abnormality Reference (Units ) Status WBC, Total 10/22/2023 10:39:22 5.81 4.00-10.8 0 (K/uL) Final RBC 10/22/2023 10:39:22 5.13 4.50-5.25 (M/uL) Final Hemoglobin 10/22/2023 10:39:22 15.9 14.0-16.8 (g/dL) Final HCT 10/22/2023 10:39:22 47.3 40.0-48.4 (%) Final MCV 10/22/2023 10:39:22 92.2 82.0-99.5 (fL) Final MCH 10/22/2023 10:39:22 31.0 27.0-34.0 (pg) Final MCHC 10/22/2023 10:39:22 33.6 32.0-36.0 (g/dL) Final RDW 10/22/2023 10:39:22 14.0 11.5-15.5 (%) Final Platelets 10/22/2023 10:39:22 271 140-400 (K /uL) Final MPV 10/22/2023 10:39:22 10.3 6.6-11.1 ( fL) Final Performing Location [facility] [place] [address] [place] [address]
--- OUTSIDE RECORDS SUMMARY | 2023-10-29 10:36 | External Medical Summary | Continuity of Care Document ---
Author Name Unknown Organization [id number] Address [address] [place] [id number] Care Team Providers Care Swaging Machine Operator Name Role Phone DwaineMicah looney Diallo Primary Care Physician [phone] Encounter [facility] [id number] Date(s): 10/21/23 - 10/21/23 [facility] [place] [id number] Medicine [address] [place] [id number] Encounter Diagnosis Preop examination(Discharge Diagnosis) - 10/21/23 Osteoarthritis of right hip(Discharge Diagnosis) - 10/21/23 Discharge Disposition: Home or Self Care Attending Physician: ANTONINO Metzger Dennis Referring Physician: MD Eliz, Dean Ryder Allergies, Adverse Reactions, Alerts Substance Reaction Severity Status Rocephin Hives Moderate Active Medications amoxicillin 500 mg oral capsule Start: 06/10/23 9:07:00 EDT, 4 cap, PO, As indicated, Disp# 12 cap, Refills: 3, one hour before dental and other procedures as directed, Pharmacy: [id number] Start Date: 06/10/23 Status: Ordered aspirin 81 mg oral delayed release tablet Start: 06/27/22 8:04:00 EDT, 1 tab, PO, Daily Start Date: 06/27/22 Status: Ordered atorvastatin 20 mg oral tablet Start: 06/27/22 8:03:00 EDT, 1 tab, PO, Daily Start Date: 06/27/22 Status: Ordered lisinopril 20 mg oral tablet TAKE 1 TABLET BY MOUTH IN THE MORNING Start Date: 06/27/22 Status: Ordered MetFORMIN (Eqv-Glucophage XR) 500 mg oral tablet, extended release Start: 06/27/22 8:03:00 EDT, 3 tab, total 1500mg dily Start Date: 06/27/22 Status: Ordered Metoprolol Succinate ER 25 mg oral tablet, extended release Start: 06/27/22 8:03:00 EDT, 1 tab, PO, Daily Start Date: 06/27/22 Status: Ordered Multi Vitamin+ Start: 06/27/22 8:04:00 EDT Start Date: 06/27/22 Status: Ordered tamsulosin 0.4 mg oral capsule TAKE 1 CAPSULE BY MOUTH IN THE MORNING Start Date: 06/27/22 Status: Ordered Mental Status 10/21/23 Barriers to Learning one year None evide nt Mandatory Health Literacy Documentation Yes Health Literacy Communication Barriers N ever Primary Language Qatari Problem List Condition Confirmation Course Effective Dates Status Health St [facility] Informant Diabetes Confirmed Active Diagnosis Diagnosis Type Effective Dates Health Status Clinical Service Informant Osteoarthritis of right hip Discharge Diagnosis 10/21/23 Preop examination Discharge Diagnosis 10/21/23 Vital Signs Most recent to oldest [Reference Range]: 1 Temperature [36.5-37.9 DegC] 36.1 DegC *LOW* (10/21/23 10:50 AM) Respiratory Rate 20 br/min (10/21/23 10:50 AM) Blood Pressure 130/70mmHg (10/21/23 10:50 AM) Cuff Pulse Pressure 60 mmHg (10/21/23 10:50 AM) Social History Social History Type Response Smoking Status Never smoked cigaret jose Sex Cardiology * Contributor_system, MUSE01: VERIFY, PERFORM Event Display: EKG Authored Date: Please click on link to see image. Pre-OP H & P * ANTONINO Metzger Dennis: PERFORM Event Display: Pre-OP H & P Authored Date: [id number] PRE-OPERATIVE HISTORY AND PHYSICAL Name: ANGELY ALEGRIA Patient Number: [id number] : 1955 Date of Service: 10/21/2023 PRE-OP Diagnosis: Right hip osteoarthritis Planned Procedure: Right total hip arthroplasty Chief Complaint: Right hip pain History of Present Illness (including history relevant to procedure): This 68-year-old male presents to the clinic today for his preoperative history and physical. Patient has a longstanding history of hip arthritis. Patient had his left hip replaced by Dr. Wellington back in August 2022. Patientstates that he was doing very well following the left hip replacement but noticed that at the end of his golf season this year he had difficulty completing 18 holes due to the pain he experienced in his left hip. He has tried [id number] anti- inflammatory agents. He has done some rehab exercises that he did for his left hip without alleviation of his pain. He is electing to proceed with surgical intervention at this time. Review Of Systems: 12 point review of systems is performed and is unremarkable except for those things stated in the HPI and past medical history. Past Medical History: Problems: Diabetes Hypertension Hypercholesterolemia History of pulmonary embolism Procedure History Procedure Procedure Date Comments Cervical decompression at C4-C5 for spinal stenosis, Achilles tendon repair, knee arthroscopy Allergies and Sensitivities: Rocephin(Hives) Current Home Meds: (Last Updated 10/21 10:50) amoxicillin (amoxicillin 500 mg oral capsule) 2,000 mg PO As indicated one hour before dental and other procedures as directed aspirin (aspirin 81 mg oral delayed release tablet) 81 mg PO Daily atorvastatin (atorvastatin 20 mg oral tablet) 20 mg PO Daily lisinopril (lisinopril 20 mg oral tablet) TAKE 1 TABLET BY MOUTH IN THE MORNING metFORMIN (MetFORMIN (Eqv-Glucophage XR) 500 mg oral tablet, extended release) 1,500 mg total 1500mg dily metoprolol (Metoprolol Succinate ER 25 mg oral tablet, extended release) 25 mg PO Daily multivitamin (Multi Vitamin+) tamSULOsin (tamsulosin 0.4 mg oral capsule) TAKE 1 CAPSULE BY MOUTH IN THE MORNING Vitals: Last Updated 10/21/23 10:50 Weights: No Weight Data Available Date Temp Pulse BP RR SpO2 FIO2 Date Wt(kg) Wt(lb) 10/21 10:50 36.1 130/70 20 98 24 Hr Tmax: 36.1 at 10/21 10:50 Initial Wt: No Data Available Physical Exam: (relevant to the procedure, including heart and lung evaluation) General: Alert and oriented x 3 with proper grooming and hygiene Eyes: Pupils are equal and reactive to light with accommodation. Extraocular movements are intact Throat: Posterior oropharynx is clear with absence of edema, erythema or exudate. Dentition is appropriate Cardiac: Regular rate and rhythm with no murmurs or gallops appreciated Lungs: Clear to auscultation throughout with no wheezing, rales or rhonchi Abdomen: Nonobese, nondistended, nontender with NABS Extremities: Right hip: Flexion is limited to 90 degrees, internal rotation to 5 degrees, external rotation to 40 degrees. Patient has a positive Stinchfield test. He experiences tenderness to palpation over the groin area. Impingement test is positive. Patient is neurovascularly intact. Neuro: Cranial nerves II through XII are intact, with no motor or sensory deficit Skin: Normal in appearance with no open skin areas or discharge Studies (relevant to the procedure): X-ray imaging: AP pelvis, cross-table lateral, and right hip false profile views of the bilateral hips obtained today and personally interpreted by me show left CECILY hardware in good positioning with no evidence of complication. Evidence of right hip arthritis. Plan: Patient is scheduled to undergo this procedure at the [facility] with a 23-hour observation admission with Dr. Wellington on October. Risks and complications of the procedure such as: Infection, bleeding, pain, scarring, nerve blood vessel damage, weakness, wound problems, stiffness, incomplete relief of symptoms, hardware failure, hardware loosening, wear, fracture, tendon or ligament injury, dislocation, leg length inequality, blood clots, Embolism,heart attack, stroke and were explained to the patient at his visit today. Informed consent to perform the procedure was obtained. Patient also understands risks of proceeding with surgical inte rvention during the COVID-19 pandemic. Currently he is asymptomatic and has not been in contact with anyone positive for the virus recently. Patient does not need to meet with PAT due to previously having left total hip arthroplasty, however we will need to obtain a CBC with differential, complete metabolic panel, PT/INR, urinalysis, urine culture and sensitivity, EKG, hemoglobin A1c and a nasal culture for MRSA. Patient will also need preoperative medical clearance from their primary care provider Dr. Cline. He is scheduled for that appointment on October 23 at 4 PM. Patient states that he plans on doing in-home physical therapy for the first 1 to 2 weeks postoperatively with [facility]. Patient states that he is already scheduled for outpatient physical therapy in our PT clinic. Patient already has a walker, raised toilet seat, shower chair and a hip kit. During today's visit we reviewed the total hip packet as well as precautions. We discussed discharge planning from the hospital. I provided paperwork to obtain a handicap placard for their vehicle. We discussed lectures offered by [facility] in regards to joint replacement surgery via Zoom patientstates that he did these prior to his last hip surgery and does not feel that he needs to watch them again.. I advised the patient that upon discharge from hospital we will prescribe a narcotic pain medication and anti-inflammatory. Patient will also be on an Xarelto for blood clot prevention due to his previous history of pulmonary embolism. Patient will be scheduled for his 2-week postoperativefollow-up visit with myself on November 11, 2023. This chart was completed utilizing [employer] voice recognition software. Grammatical errors,random word insertions, pronoun errors, and in complete sentences are an occasional consequence of the system. Any questions or concerns about the content, text, or information contained within the body of this dictation should be addressed directly to the physician for clarification. Electronic Signature on File CC: Micah Cline DO [address] [place] [id number] * Electronically Reviewed/Signed by: Claude Metzger PA-C Author Signature Dt/Tm:10/21/2023 04:17 PM Division of Sports Medicine Electronically Reviewed/Signed by: Dean Wellington MD Cosigner Signature Dt/Tm: 10/22/2023 09:41AM Division of Sports Medicine [place] Patient Care team information Care Team Personnel Name: DO Cline Shane D Position: Referring DIRECT Member Role: Primary Care Provider Address: Address: [address] [place] [id number] [place]
--- OUTSIDE RECORDS SUMMARY | 2023-10-29 10:36 | External Medical Summary | Summary of Care ---
Author Name Unknown Organization [facility] Address [address] [place] [address] Phone [phone] Care Team Providers Care Hook Up Driver Name Role Phone Micah Cline DO Primary Care Provider [phone] Reason for Visit * Reason Comments Outpatient Testing Encounter Details Date Type Department Care Team (Late st Contact Info) Description 10/22/2023 10:30 AM EST Laboratory Laboratory [facility] [address] [place] [id number] [facility] [address] [place] [address] Preoperative examination, unspecified; Primary osteoarthritis of right hip Allergies Active Allergy Reactions Criticality Noted Date Comments Ceftriaxone High 01/12/2022 Other reaction(s): HIVES, SWELLING, ITCHING OF THROAT Rocephin Hives High 06/27/2014 with ankle surgery surgical prophylaxis documented as of this encounter (statuses as of 10/22/2023) Medications Medication Sig Dispensed Refills Start Date End Date Status aspirin 81 MG chewable tablet Take 1 Tab by mouth daily. with food. 100 Tab 5 10/02/2016 Active Multiple Vitamins-Minerals (MULTIVITAMIN ADULT) CHEW Take 1 Tab by mouth daily. 0 Active ibuprofen (MOTRIN) 200 MG TabletIndications:pt taking 2 in morning and 2 in evening after meals Take 1 Tablet by mouth every 4 hours as needed for Pain. 0 Active Blood Gluc Meter Disp-Strips DeviceIndications:Type 2 diabetes mellitus with hemoglobin A1c goal of less than 7.0% ([facility]) Use to check blood sugar once daily E11.9 1 Each 0 10/24/2020 Active Acetaminophen 500 MG Oral Tablet Take 1 Tablet by mouth every 6 hours as needed for Pain, Moderate. 30 Tablet 0 11/05/2022 Active OneTouch Delica Plus [id number] Use to check blood sugar once daily. E11.9 100 Each 11 12/05/2022 Active OneTouch Delica Lancets 33GIndications:Type 2 diabetes mellitus with hemoglobin A1c goal of less than 7.0% (HCC) Use to check blood sugar once daily. E11.9 100 Each 3 12/05/2022 Active Tamsulosin HCl 0.4 MG Oral Capsule (Flomax) Take 1 capsule by mouth in the morning 90 Capsule 3 04/08/2023 Active metFORMIN HCl ER 500 MG Oral Tablet Extended Release 24 Hour (Glucophage XR)Indications:Type 2 diabetes mellitus with hemoglobin A1c goal of less than 7.0% (HCC) Take 2 tablets by mouth once daily 180 Tablet 1 09/09/2023 Active PlistenTouch Verio In Vitro Strip (Glucose Blood)Indications:Type 2 diabetes mellitus with hemoglobin A1c goal of less than 7.0% (HCC) USE STRIP TO CHECK GLUCOSE ONCE DAILY 100 Strip 1 09/09/2023 Active Lisinopril 20 MG Oral Tablet (Prinivil)Indications:HTN, goal below 140/90 TAKE 1 TABLET BY MOUTH IN THE MORNING 90 Tablet 0 09/24/2023 Active Atorvastatin Calcium 20 MG Oral Tablet (Lipitor)Indications:Pure hypercholesterolemia TAKE 1 TABLET DAILY 90 Tablet 0 10/01/2023 Active Metoprolol Succinate ER 25 MG Oral Tablet Extended Release 24 Hour (toPROL XL)Indications:HTN, goal below 140/90 TAKE 1 TABLET DAILY 90 Tablet 0 10/01/2023 Active documented as of this encounter (statuses as of 10/22/2023) Active Problems Problem Noted Date Diagnosed Date Type 2 diabetes mellitus wit h stage 1 chronic kidney disease, without long-term current use of insulin 2022 Spinal stenosis of lumbar region 10/23/2021 Type [...] ASSOCIATED WITH ANKLE SURGERY 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/2014 Overview: homocysteine level NL, negative for Leiden and prothrombin gene mutation History of basal cell carcinoma 05/31/2013 Neoplasm of uncertain behavior of skin 3 Dermatofibroma 12/06/2012 HTN, goal below 140/90 09/25/2008 FAMILY HISTORY OF CARDIOVASC DIS (ISCHEMIC) 01/12 Overview: father FAMILY HISTORY OF KIDNEY NEOPLASM 01/29/2005 Overview: TCC father Preglaucoma Cervical spinal stenosis documented as of this encounter (statuses as of 10/22/2023) Resolved Problems Problem Noted Date Diagnosed Date [...] as of this encounter (statuses as of 10/22/2023) Immunizations Name Administration Dates Next Due COVID-19 mRNA, LNP-s, No Pre serve, 2-Dose Series (Moderna) 11/15/2020,10/18/2020 COVID-19, mRNA, LNP-s, PF, B ooster, 100mcg/0.5mg (Moderna) 08/13/2021 Diptheria/Tetanus Adult (TD) 04/05/2018 Pneumococcal Conjugate Vacci ne, 20-valent ([id number]) 07/23/2022 Pneumococcal Polysaccharide PPV23 (Pneumovax) 05/07/2021,08/29/2011 Seasonal [...] Influenza, Split, I IV3, With Preserve, Inj 06/01/2014,06/28/2013,07/14/2012,09/2010,06/14/2010,06/25/2009,06/14/20 08 TD, Preservative Free 04/05/2018 TDAP (age [...] on file documented as of this encounter Plan of Treatment Upcoming Encounters Date Type Department Care Team (Late st Contact Info) Description 10/23/2023 4:00 PM EST [facility] [place] [address] [address] Marleny Turner PA-C [address] [id number] 12/16/2023 8:20 AM EDT [facility] [place] [address] [address] Micah Cline DO [address] [address] Pending Results Name Type Priority Associated Diagnoses Date /Time CBC WITH WBC DIFFERENTIAL Lab Routine Preoperative examination, unspecified Primary osteoarthritis of right hip 10/22/2023 10:39 AM EST HEMOGLOBIN A1C Lab Routine Preoperative examination, unspecified Primary osteoarthritis of right hip 10/22/2023 10:39 AM EST COMPREHENSIVE METABOLIC PANEL Lab Routine Preoperative examination, unspecified Primary osteoarthritis of right hip 10/22/2023 10:39 AM EST PT INR Lab Routine Preoperative examination, unspecified Primary osteoarthritis of right hip 10/22/2023 10:39 AM EST CBC Lab Routine Preoperative examination, unspecified Primary osteoarthritis of right hip 10/22/2023 10:39 AM EST DIFFERENTIAL, AUTOMATED Lab Routine Preoperative examination, unspecified Primary osteoarthritis of right hip 10/22/2023 10:39 AM EST CULTURE, URINE, QUANTITATIVE Lab Routine Preoperative examination, unspecified Primary osteoarthritis of right hip 10/22/2023 10:39 AM EST URINALYSIS, REFLEX TO MICROSCOPIC Lab Routine Preoperative examination, unspecified Primary osteoarthritis of right hip 10/22/2023 10:39 AM EST Scheduled Procedures Name Priority Associated Diagnoses Date/Ti [...] 2023 07/01/2022, 06/18/2021, 06/18/2021, Additional history exists GFR 09/03/2023 09/03/2022, 11/0 05/2022, 04/24/2022, Additional history exists Depression Screening 2023 2022 HbA1c 11/05/2023 05/05/2023, 10/15, 07/23/2022, Additional history exists Diabetic Foot Exam 05/12/2024 05/12/2023, 1 09/22/2021, 10/23/2021, Additional history exists Diabetic Eye Exam 07/06/2024 07/06/2023, , 05/06/2021, Additional history exists Colonoscopy 11/25/2025 11/26/2015, 09/04/2005 Colorectal Cancer Screening 11/25/2025 Lipid Panel 04/24/2027 04/24/2022, 01/2021, 03/29/2019, Additional history exists DTaP,Tdap,and Td Vaccines (4 - Td or [...] as of this encounter Visit Diagnoses Diagnosis Preoperative examination, unspecified Primary osteoarthritis of right hip Primary localized osteoarthrosis, pelvic region and thigh documented in this encounter Care Teams Hook Up Driver Relationship Specialty Start Date End Date Micah Cline DO [address] [place] [address] PCP - General Family Medicine 04/02/17 documented as of this encounter
--- OUTSIDE RECORDS SUMMARY | 2023-10-29 10:36 | External Medical Summary ---
Author Name Unknown Address Unknown Organization K09:[facility] [address] [place] [address] Laboratory Report Ordering Provider Test Date Status ANTHONY STARRMAGALYLISSY 10/22/2023 10:39:22 Final Observation Date Value Abnormality Reference (Units ) Status BUN 10/22/2023 10:39:22 16 6-20 (mg/dL) Final Creatinine 10/22/2023 10:39:22 0.8 0.6-1.2 (mg/dL) Final Glomerular filtration rate/1.73 sq M.predicted [Volume Rate/Area] in Serum, Plasma or Blood by Creatinine-based formula (CKD-EPI) 10/22/2023 10:39:22 >90 >=60 (mL/min) Final eGFR is calculated based on the CKD-EPI 2020 equation SODIUM 10/22/2023 10:39:22 138 135-146 (m mol/L) Final Potassium 10/22/2023 10:39:22 4.4 3.5-5.1 (m mol/L) Final Cl 10/22/2023 10:39:22 103 98-107 (mm ol/L) Final CO2 10/22/2023 10:39:22 21 Below low normal 22- 32 (mmol/L) Final Anion gap 10/22/2023 10:39:22 14 7-15 (mmol /L) Final Glucose 10/22/2023 10:39:22 161 Above high normal 70 -120 (mg/dL) Final Albumin 10/22/2023 10:39:22 4.6 3.8-5.0 (g /dL) Final AST (Aspartate aminotransferase) 10/22/2023 10:39:22 23 10-50 (U/L) Fin al Alk Phos 10/22/2023 10:39:22 98 35-130 (U/ L) Final Bilirubin, Total 10/22/2023 10:39:22 0.8 <=1 .2 (mg/dL) Final Calcium 10/22/2023 10:39:22 9.2 8.4-10.2 ( mg/dL) Final Protein 10/22/2023 10:39:22 7.6 6.0-8.3 (g /dL) Final ALT (Alanine aminotransferase) 10/22/2023 10:39:22 29 10-50 (U/L) Sudheer dillon Performing Location [facility] [address] [place] [address]
--- OUTSIDE RECORDS SUMMARY | 2023-10-29 10:36 | External Medical Summary | Summary of Care ---
Author Name Unknown Organization [facility] Address [address] [facility] [place] [address] Phone [phone] Care Team Providers Care Slotter Operator Helper Name Role Phone Micah Cline DO Primary Care Provider [phone] Reason for Visit * Reason Comments pre-op exam Encounter Details Date Type Department Care Team (Latest Contact Info) Description 10/23/2023 4:00 PM EST Office Visit Family Practice [facility] [place] [address] [facility] [place] [address] Marleny Turner PA-C [address] [facility] [place] [address] Pre-operative examination*; Primary osteoarthritis of both hips; Type 2 diabetes mellitus with hemoglobin A1c goal of less than 7.0% (HCC); Type 2 diabetes mellitus with stage 1 chronic kidney disease, without long-term current use of insulin (HCC); Heterozygous MTHFR mutation [id number]; Mixed hyperlipidemia; HTN, goal below 140/90; Atherosclerosis of left carotid artery; Hard to intubate, sequela; Body mass index 28.0-28.9, adult Allergies Active Allergy Reactions Criticality Noted Date [...] (HCC) Use to check blood sugar once daily E11.9 1 Each 0 1 Active Acetaminophen 500 MG Oral Tablet Take 1 Tablet by mouth every 6 hours as needed for Pain, Moderate. 30 Tablet 0 3 Active OneTouch Delica Plus [id number] Use to check blood sugar once daily. [...] by mouth once daily, Reported on 10/23/2023 [employer] Verio In Vitro Strip (Glucose Blood)Indications:Type 2 [...] ASSOCIATED WITH ANKLE SURGERY Heterozygous MTHFR mutation [id number] 06/27/2014 Overview: homocysteine level NL, negative for [...] (TD) 04/05/2018 Pneumococcal Conjugate Vacci ne, 20-valent ([id number]) 07/23/2022 Pneumococcal Polysaccharide PPV23 (Pneumovax) 05/07/2021,08/29/2011 Seasonal Influenza Virus Vac cine, Unspecified Formulation 06/18/2021,05/25/2020,07/12/2019,10/10/2017,05/29/2017,06/28/2016,06/01/20 14,06/28/2013,07/14/2012,06/14/2011,1 ,06/25/2009,06/14/2008 Seasonal Influenza, PF, 6 M & above, IM , (FluLaval or Fluzone) 05/25/2020,07/12/2019,06/15/2018,05/15 Seasonal Influenza, Quadriva lent Hd (Fluzone Hd) 06/18/2021 Seasonal Influenza, Quadriva lent Hd, 65+ Yrs 07/01/2022 Seasonal Influenza, Quadriva lent, No Preserve, IM 06/28/2015 Seasonal Influenza, Quadriva lent,with Preserve, 3 yr & above, IM 06/28/2016 Seasonal Influenza, Split, I IV3, With Preserve, Inj 06/01/2014,06/28/2013,07/14/2012,1009/2010,06/14/2010,06/25/2009,06/14/20 08 TD, Preservative Free 04/05/2018 TDAP (age [...] on file documented as of this encounter Last Filed Vital Signs Vital Sign Reading Time Taken Comments Blood Pressure 114/76 10/23/2023 4:24 PM EST Pulse 69 10/23/2023 4:24 PM EST Temperature 36.5 C (97.7 F) 10/23/2023 4:[address] Respiratory Rate 16 10/23/2023 4:24 PM EST Oxygen Saturation 96% 10/23/2023 4:24 PM EST Inhaled Oxygen Concentration - - Weight 90.7 kg (200 lb) 10/23/2023 4:24 PM EST Height 177.4 cm (5' 9.84") 10/23/2023 4:24 PM ES T Body Mass Index 28.83 10/23/2023 4:24 PM EST documented in this encounter Progress Notes * Marleny Turner PA-C - 10/23/2023 4:36 PM EST Images from the original note were not included. Pre-Operative Medical Evaluation Procedure Information Type of Surgery: right total hip replacement Referring Physician / Surgeon: Eladio Larios/Dr. Dean Wellington Date of procedure: 10/29/2023 at [facility] Review of Systems: Constitutional ROS: No change in weight, No weakness, No fatigue, and No fevers, sweats, or chills Eye ROS: No recent significant change in vision, No eye pain, redness, discharge, No diplopia, No h/o cataracts, and No h/o glaucoma Ear ROS: No ear pain, No drainage, No tinnitus or vertigo, and No recent change in hearing Nose ROS: No history of frequent colds or sinusitis, No nasal stuffiness, No history of Hay Fever, and No significant epistaxis Mouth/Throat ROS: No bleeding gums, No thrush, or No sore throat Neck ROS: No lumps or masses, No swollen glands, No recent swelling in thyroid area, No significantpain in neck, and No h/o goiter or thyroid disease Pulmonary ROS: No cough, sputum, or hemoptysis, No wheezing, No rales, No shortness of breath, and No recent change in breathing Cardiovascular ROS: No chest pain, No shortness of breath, No dyspnea on exertion, No orthopnea, Noparoxysmal nocturnal dyspnea, No edema, No palpitations, and No syncope Gastrointestinal ROS: No abdominal pain, No change in bowel habits, No significant heartburn, No significant change in appetite, No nausea, vomiting, diarrhea, or constipation, No hematemesis, No blood in stools or black tarry stools, No abdominal bloating or early satiety, and No dysphagia Genito-Urinary Male ROS: No STD, No dysuria, No frequency, No incontinence, No urgency, and Performs self testicular exam Skin/Integumentary ROS: No edema, No rash, and No itching Neurologic ROS: Normal balance, No headaches, No seizures, and No weakness Psychiatric ROS: No depression, No anxiety, and No psychosis Medical History Problem List: Atherosclerosis of left carotid artery (10/23/2023) HLD (hyperlipidemia) (10/23/2023) Primary osteoarthritis of both hips (10/23/2023) Type 2 diabetes mellitus with stage 1 chronic kidney disease, without long-term current use of insulin ([facility]) (2022) Arthritis of hip (06/27/2022) 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[facility]) (10/23/2021) Spinal stenosis of lumbar region (10/23/2021) Type 2 diabetes mellitus with hemoglobin A1c goal of less than 7.0% ([facility]) (11/19/2016) Difficult intubation (04/10/2016) History of colon polyps (11/27/2015) History of fusion of cervical spine (10/11/2015) History of pulmonary embolus (PE) (04/09/2015) Pulmonary embolism (HCC) (06/29/2014) Warfarin anticoagulation (06/27/2014) Heterozygous MTHFR mutation [id number] (06/27/2014) Neck pain on right side (06/17/2013) History of basal cell carcinoma (05/31/2013) Multiple pigmented nevi (05/31/2013) Neoplasm of uncertain behavior of skin (12/06/2012) Bolaños angioma (12/06/2012) Other seborrheic keratosis (12/06/2012) Dermatofibroma (12/06/2012) Obesity, Class I, BMI 30.0-34.9 (see actual BMI) (2012) Encounter for examination for normal comparison and control in clinical research program (03/09/2012) HTN, goal below 140/90 (09/25/2008) ADVANCE DIRECTIVE INFORMATION (01/29/2005) FAM HX-DIABETES MELLITUS (01/29/2005) FAMILY HISTORY OF CARDIOVASC DIS (ISCHEMIC) (01/29/2005) FAMILY HISTORY OF KIDNEY NEOPLASM (01/29/2005) Preglaucoma Cervical spinal stenosis Current Medications Vitamin C ER 1000-100 MG Oral Tablet Extended Release, Take by mouth. Atorvastatin Calcium 20 MG Oral Tablet (Lipitor), TAKE 1 TABLET DAILY Metoprolol Succinate ER 25 MG Oral Tablet Extended Release 24 Hour (toPROL XL), TAKE 1 TABLET DAILY Lisinopril 20 MG Oral Tablet (Prinivil), TAKE 1 TABLET BY MOUTH IN THE MORNING metFORMIN HCl ER 500 MG Oral Tablet Extended Release 24 Hour (Glucophage XR), Take 2 tablets by mouth once daily (Patient taking differently: 1,500 mg, Take 2 tablets by mouth once daily) OneTouch Verio In Vitro Strip (Glucose Blood), USE STRIP TO CHECK GLUCOSE ONCE DAILY Tamsulosin HCl 0.4 MG Oral Capsule (Flomax), Take 1 capsule by mouth in the morning OneTouch Delica Lancets 33G, Use to check blood sugar once daily. E11.9 OneTouch Delica Plus [id number], Use to check blood sugar once daily. E11.9 Acetaminophen 500 MG Oral Tablet, 500 mg, Oral, Q6H PRN Blood Gluc Meter Disp-Strips Device, Use to check blood sugar once daily E11.9 ibuprofen (MOTRIN) 200 MG Tablet, 200 mg, Oral, Q4H PRN Multiple Vitamins-Minerals (MULTIVITAMIN ADULT) CHEW, 1 Tablet, Oral, Daily(AM) aspirin 81 MG chewable tablet, 81 mg, Oral, Daily(AM) Allergies: Ceftriaxone and Rocephin Past Medical History: has a past medical history of Cervical spinal stenosis (1990), Difficult intubation (04/10/2016), Encounter for ophthalmic examination and evaluation, Heterozygous MTHFR mutation [id number] (06/27/2014), History of colon polyps (11/27/2015), HTN, goal below 140/90 (09/25/2008), Hyperlipidemia, Preglaucoma (1992), Pulmonary embolism on right (HCC) (06/27/14), Varicella without complication (child), and Warfarin anticoagulation (06/27/2014). Past Surgical History: has a past surgical history that includes remove neck spine lamina, 1-2 segs (1990); remove tonsils& adenoids, under 12; colonoscopy (08/18); Tenotomy Achilles Tendon, Perc; General Anesthesia (Left, 06/06/14); Colonoscopy, Diagnostic (Rectum) (11/26/2015); knee arthroscopy, diagnostic (Right, 2016); and Inject Dx/Ther Substance Interlaminar Lumbar/Sacral W Image Guide (10/28/2021). Social History: reports that he has never smoked. He has never used smokeless tobacco. He reports current alcohol use of about 1.0 standard drink of alcohol per week. He reports that he does not use drugs. Family History: family history includes Diabetes in his brother, father, and mother; Heart Disorder in his father; No Past Hx in his brother. Anesthesia History Type of Anesthesia: General Endotracheal and Caudal block Anesthesia reaction: No History of surgical complications: None Personal history of venous thromboembolic disease: yes- hx of PE, will be on Xarelto for this surgery (per surgeon's orders, will start after the surgery) Physical Exam Vitals: 10/23/23 1624 Temp: 36.5 C (97.7 F) Pulse: 69 Resp: 16 SpO2: 96% BP: 114/76 BMI: 28.83 BP 114/76 | Pulse 69 | Temp 36.5 C (97.7 F) (Tympanic) | Resp 16 | Ht 1.774 m (5' 9.84") | Wt 90.7 kg (200 lb) | SpO2 96% | BMI 28.83 kg/m | BSA 2.11 m General: alert, healthy, and no distress Head: Normocephalic, No masses, lesions, tenderness or abnormalities Eye Exam: PERRLA, extraocular movements intact, conjunctiva are pink and non- injected, sclera clear Ears: External ears normal, Canals clear, TM's Normal Nose: no mucosal erythema, no mucosal edema, no purulent discharge Oropharynx: no exudate, no erythema, lips, buccal mucosa, and tongue normal, and mucous membranes are moist Neck: supple, no adenopathy, no bruits, thyroid normal size, non-tender, without nodularity Heart: regular rate & rhythm, no murmur, and no gallops Lungs: chest symmetric with normal AP diameter, no chest deformities noted, no chest wall tenderness, lungs clear to auscultation Abdomen: abdomen soft, non-tender, normal bowel sounds, and no masses or organomegaly Back: back symmetric, no curvature, no costovertebral angle tenderness, range of motion is normal Neuro Exam: alert & oriented x 3 with fluent speech, no focal motor/sensory deficits, gait normal, reflexes normal and symmetric Skin: skin color, texture, turgor are normal, no rashes or significant lesions Labs reviewed and are significant for: No significant findings. MRSA screen done today in office. EKG by my review is significant for: no significant changes from previous EKG done in 10/2022. Surgical Risk Scoring Revised Cardiac Risk Index (RCRI) High-risk type of surgery (examples include vascular and any open intraperitoneal or intrathoracic procedures): 0=No History of ischemic heart disease (history of myocardial infarction or positive exercise test, current compliant of chest pain considered to be secondary to myocardia ischemia, use of nitrate therapy, or ECG with pathological Q waves; do not count prior coronary revascularization procedure unless one of the other criteria for ischemic heart disease is present): 0=No History of heart failure: 0=No History of cerebrovascular disease: 0=No Diabetes mellitus requiring treatment with insulin: 0=No Preoperative serum creatinine >2.0 mg/dL (177 micromol/L): 0=No Pt has revised cardiac index score of: No Risk Factors- 0.4% (95% CI: 0.1-0.8) Screening for Obstructive Sleep Apnea (STOP-BANG) Do you Snore loudly? 0=No Do you often feel Tired, Fatigued, or Sleep? 0=No Has anyone Observed you Stop Breathing or Choking/Gasping during sleep? 0=No Do you have or are you being treated for High Blood Pressure? 1=Yes BMI over 35? 0=No Age older than 50? 1=Yes Neck size large? (For males - 17 inches or larger, For females - 16 inches or larger) 0=No Male? 1=Yes Score 0-2:low risk OSMANI, 3-4: intermediate risk of OSMANI, 5-8: high risk OSMANI 2 Assessment and Plan Pre-operative examination - EKG; Future - EKG - STAPH AUREUS PCR; Future - STAPH AUREUS PCR Primary osteoarthritis of both hip Type 2 diabetes mellitus with hemoglobin A1c goal of less than 7.0% (HCC) Type 2 diabetes mellitus with stage 1 chronic kidney disease, without long-term current use of insulin (HCC) Heterozygous MTHFR mutation [id number] Mixed hyperlipidemia HTN, goal below 140/90 Atherosclerosis of left carotid artery Hard to intubate, sequela Body mass index 28.0-28.9, adult Functional Assessment They are able to walk up a flight of stairs, walk two blocks at a moderate pace, do heavy house work like vacuuming, and grocery shop. The patient's functional status is good (greater than 4 METS). 1 MET: 4 METs: 4-10 METs: Can take care of self, such as eat, dress or use the toilet. Can walk to block or go up a flight of steps. Can do heavy house work. Surgical Risk Assessment Patient is low medical risk for the listed procedure. Medication adjustments: None per our recommendations PER SURGERY CENTER -stop aspirin 3 days before -metformin 2 days before -metoprolol the morning of Additional consults or testing: None. documented in this encounter Nursing Notes * Humera Mendiola LPN - 10/23/2023 4:24 PM EST Patient presents today for a pre op exam. He denies any concerns. documented in this encounter Plan of Treatment Upcoming Encounters Date Type Department Care Team (Late st Contact Info) Description 12/16/2023 8:20 AM EDT Office Visit Family Practice [facility] [address] [facility] [place] [address] Micah Cline, DO [address] [facility] [place] [address] Pending Results Name Type Priority Associated Diagnoses Date /Time STAPH AUREUS PCR Lab Routine Pre-operative examination 10/23/2023 5:01 PM EST Scheduled Orders Name Type Priority Associated Diagnoses Orde r Schedule EKG EKG Routine Pre-operative examination Expected: 10/23/2023 (Approximate), Expires: 11/20/2024 STAPH AUREUS PCR Lab Routine Pre-operative examination Expected: 10/23/2023 (Approximate), Expires: 10/22/2024 Scheduled Procedures Name Priority Associated Diagnoses Date/Ti [...] as of this encounter Visit Diagnoses Diagnosis Pre-operative examination- Primary Preoperative examination, unspecified Primary osteoarthritis of both hips Primary localized osteoarthrosis, pelvic region and thigh Type 2 diabetes mellitus with hemoglobin A1c goal of less than 7.0% (HCC) Type 2 diabetes mellitus with stage 1 chronic kidney disease, without long-term current use of insulin (HCC) Heterozygous MTHFR mutation [id number] Disturbances of sulphur-bearing amino-acid metabolism Mixed hyperlipidemia HTN, goal below 140/90 Unspecified essential hypertension Atherosclerosis of left carotid artery Occlusion and stenosis of carotid artery without mention of cerebral infarction Hard to intubate, sequela Body mass index 28.0-28.9, adult Body Mass Index 28.0-28.9, adult documented in this encounter Care Teams Slotter Operator Helper Relationship Specialty Start Date End Date Micah Cline DO [address] [place] [id number] PCP - General Family Medicine 04/02/17 documented as of this encounter
--- OUTSIDE RECORDS SUMMARY | 2023-10-29 10:36 | External Medical Summary | Summary of Care ---
Author Name Unknown Organization [facility] Address [address] [facility] [place] [address] Phone [phone] Care Team Providers Care Billet Checker Name Role Phone Micah Cline DO Primary Care Provider [phone] Reason for Visit * Reason Onset Date Comments FYI 10/26/2023 NEEDS MRSA SCREE N REDONE FOR SURGERY Encounter Details Date Type Department Care Team (Late st Contact Info) Description 10/26/[address] [facility] 200 [facility] [place] [address] Marleny Turner PA-C [address] [facility] [place] [address] FYI (NEEDS MRSA SCREEN REDONE FOR SURGERY) Allergies Active Allergy Reactions Criticality Noted Date Comments Ceftriaxone High 01/12/2022 Other reaction(s): HIVES, SWELLING, ITCHING OF THROAT Rocephin Hives High 06/27/2014 with ankle surgery surgical prophylaxis documented as of this encounter (statuses as of 10/27/2023) Medications Medication Sig Dispensed Refills Start Date [...] Tablet 0 3 Active OneTouch Delica Plus [id number] Use to check blood sugar once daily. [...] by mouth once daily, Reported on 10/23/2023 [employer] In Vitro Strip (Glucose Blood)Indications:Type 2 diabetes [...] as of this encounter (statuses as of 10/27/2023) Active Problems Problem Noted Date Diagnosed Date [...] ASSOCIATED WITH ANKLE SURGERY Heterozygous MTHFR mutation [id number] 06/27/2014 Overview: homocysteine level NL, negative for Leiden and prothrombin gene mutation History of basal cell carcinoma 05/31/2013 Neoplasm of uncertain behavior of skin 3 Dermatofibroma 12/06/2012 HTN, goal below 140/90 09/25/2008 FAMILY HISTORY OF CARDIOVASC DIS (ISCHEMIC) 01/12 Overview: father FAMILY HISTORY OF KIDNEY NEOPLASM 01/29/2005 Overview: TCC father Preglaucoma Cervical spinal stenosis documented as of this encounter (statuses as of 10/27/2023) Resolved Problems Problem Noted Date Diagnosed Date [...] as of this encounter (statuses as of 10/27/2023) Immunizations Name Administration Dates Next Due COVID-19 mRNA, LNP-s, No Pre serve, 2-Dose Series (Moderna) 11/15/2020,10/18/2020 COVID-19, mRNA, LNP-s, PF, B ooster, 100mcg/0.5mg (Moderna) 08/13/2021 Diptheria/Tetanus Adult (TD) 04/05/2018 Pneumococcal Conjugate Vacci ne, 20-valent ([id number]) 07/23/2022 Pneumococcal Polysaccharide PPV23 (Pneumovax) 05/07/2021,08/29/2011 Seasonal [...] IV3, With Preserve, Inj 06/01/2014,06/28/2013,07/14/2012,10/0 09/2010,06/14/2010,06/25/2009,06/14/20 08 TD - Tetanus/Diptheria (ADULT) 01/12/1995 TD, Preservative Free 04/05/2018 TDAP (age 11 [...] encounter Miscellaneous Notes * Telephone Encounter - Shirley Vega LPN - 10/27/2023 2:27 PM EST Patient aware and verbalized understanding * Telephone Encounter - Marleny Turner PA-C - 10/26/2023 9:39 AM EST Please call patient and let him know the swab I did for the MRSA screen was not accepted at our lab. He will need to take his order that I gave back to him on Thursday to [place] or bring it back to our lab to have it done again (it was placed in the wrong collection tube on Thursday). documented in this encounter Plan of Treatment Upcoming Encounters Date Type Department Care Team (Late st Contact Info) Description 12/16/2023 8:20 AM EDT Office Visit Family Practice [facility] [address] [place] [address] Micah Cline DO 200 [facility] [place] [address] Scheduled Procedures Name Priority Associated Diagnoses Date/Ti [...] filedocumented as of this encounter Care Teams Billet Checker Relationship Specialty Start Date End Date Micah Cline DO [address] [place] [address] PCP - General Family Medicine 04/02/17 documented as of this encounter
--- OUTSIDE RECORDS SUMMARY | 2023-10-29 10:36 | External Medical Summary | Summary of Care ---
Author Name Unknown Organization [facility] Address [address] [facility] [place] [address] Phone [phone] Care Team Providers Care Microbiology Manager Name Role Phone Micah Cline DO Primary Care Provider [phone] Reason for Visit * Reason Onset Date Comments FYI 10/26/2023 NEEDS MRSA SCREE N REDONE FOR SURGERY Encounter Details Date Type Department Care Team (Late st Contact Info) Description 10/26/2023 Telephone Family Practice [facility] [address] [facility] [place] [address] Marleny Turner PA-C [address] [facility] [place] [address] FYI (NEEDS MRSA SCREEN REDONE FOR SURGERY) [...] Tablet 0 3 Active OneTouch Delica Plus [id number] Use to check blood sugar once daily. [...] by mouth once daily, Reported on 10/23/2023 [employer] In Vitro Strip (Glucose Blood)Indications:Type 2 diabetes [...] ASSOCIATED WITH ANKLE SURGERY Heterozygous MTHFR mutation [id number] 06/27/2014 Overview: homocysteine level NL, negative for [...] (TD) 04/05/2018 Pneumococcal Conjugate Vacci ne, 20-valent ([id number]) 07/23/2022 Pneumococcal Polysaccharide PPV23 (Pneumovax) 05/07/2021,08/29/2011 Seasonal [...] Influenza, Split, I IV3, With Preserve, Inj 06/01/2014,06/28/2013,07/14/2012,100 09/2010,06/14/2010,06/25/2009,06/14/20 08 TD, Preservative Free 04/05/2018 TDAP [...] encounter Miscellaneous Notes * Telephone Encounter - Marleny Turner PA-C - 10/26/2023 9:39 AM EST Please call patient and let him know the swab I did for the MRSA screen was not accepted at our lab. He will need to take his order that I gave back to him on Thursday to either [place] or bring it back to our lab to have it done again (it was placed in the wrong collection tube on Thursday). documented in this encounter Plan of Treatment Upcoming Encounters Date Type Department Care Team (Late st Contact Info) Description 12/16/2023 8:20 AM EDT Office Visit Family Practice [employer] [address] [facility] [place] [address] Micah Cline DO [address] [facility] [place] [address] Scheduled Procedures Name Priority Associated Diagnoses Date/Ti [...] filedocumented as of this encounter Care Teams Microbiology Manager Relationship Specialty Start Date End Date Micah Cline DO [address] [place] [address] PCP - General Family Medicine 04/02/17 documented as of this encounter
--- OUTSIDE RECORDS SUMMARY | 2023-10-29 10:36 | External Medical Summary | Summary of Care ---
Author Name Unknown Organization [facility] Address [address] [facility] [place] [address] Phone [phone] Care Team Providers Care Windows Security Engineer Name Role Phone Micah Cline DO Primary Care Provider [phone] Reason for Visit * Reason Comments pre-op exam Encounter Details Date Type Department Care Team (Latest Contact Info) Description 10/23/2023 4:00 PM EST Office Visit Family [facility] [place] [address] [facility] [place] [place] [place] [address] Marleny Turner PA-C [address] 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 [...] by mouth once daily, Reported on 10/23/2023 Virax Verio In Vitro Strip (Glucose Blood)Indications:Type 2 [...] as of this encounter (statuses as of 10/23/2023) Active Problems Problem Noted Date Diagnosed Date [...] ASSOCIATED WITH ANKLE SURGERY Heterozygous MTHFR mutation [id number] 06/27/2014 Overview: homocysteine level NL, negative for Leiden and prothrombin gene mutation History of basal cell carcinoma 05/31/2013 Neoplasm of uncertain behavior of skin 3 Dermatofibroma 12/06/2012 HTN, goal below 140/90 09/25/2008 FAMILY HISTORY OF CARDIOVASC DIS (ISCHEMIC) 01/12 Overview: father FAMILY HISTORY OF KIDNEY NEOPLASM 01/29/2005 Overview: TCC father Preglaucoma Cervical spinal stenosis documented as of this encounter (statuses as of 10/23/2023) Resolved Problems Problem Noted Date Diagnosed Date [...] as of this encounter (statuses as of 10/23/2023) Immunizations Name Administration Dates Next Due COVID-19 mRNA, LNP-s, No Pre serve, 2-Dose Series (Moderna) 11/15/2020,10/18/2020 COVID-19, mRNA, LNP-s, PF, B ooster, 100mcg/0.5mg (Moderna) 08/13/2021 Diptheria/Tetanus Adult (TD) 04/05/2018 Pneumococcal Conjugate Vacci ne, 20-valent (Ioaatyf95) 07/23/2022 Pneumococcal Polysaccharide PPV23 (Pneumovax) 05/07/2021,08/29/2011 Seasonal [...] 36.5 C (97.7 F) 10/23/2023 4:24 PM ES T Respiratory Rate 16 10/23/2023 4:24 PM EST [...] Dean Wellington Date of procedure: 10/29/2023 at [facility] Review of Systems: Constitutional ROS: No [...] disease, without long-term current use of insulin (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) (11/19/2016) Difficult intubation (04/10/2016) History of colon polyps (11/27/2015) History of fusion of cervical spine (10/11/2015) History of pulmonary embolus (PE) (04/09/2015) Pulmonary embolism (HCC) (06/29/2014) Warfarin anticoagulation (06/27/2014) Heterozygous MTHFR mutation [id number] (06/27/2014) Neck pain on right side (06/17/2013) [...] sugar once daily. E11.9 OneTouch Delica Plus [id number], Use to check blood sugar once daily. [...] ophthalmic examination and evaluation, Heterozygous MTHFR mutation T9354O (06/27/2014), History of colon polyps (11/27/2015), HTN, [...] 8:20 AM EDT Office Visit Family Practice [facility] [address] [facility] [place] [address] Micah Cline, DO [address] [facility] [place] [address] Pending Results Name Type Priority Associated Diagnoses [...] use of insulin (HCC) Heterozygous MTHFR mutation [id number] Disturbances of sulphur-bearing amino-acid metabolism Mixed hyperlipidemia HTN, goal below 140/90 Unspecified essential hypertension Atherosclerosis of left carotid artery Occlusion and stenosis of carotid artery without mention of cerebral infarction Hard to intubate, sequela Body mass index 28.0-28.9, adult Body Mass Index 28.0-28.9, adult documented in this encounter Care Teams Windows Security Engineer Relationship Specialty Start Date End Date Micah Cline DO [address] [place] [id number] PCP - General Family Medicine 04/02/17 documented as of this encounter
--- OUTSIDE RECORDS SUMMARY | 2023-10-29 10:37 | External Medical Summary ---
Author Name Unknown Address Unknown Organization [id number]:[facility] [place] [id number] Laboratory Report Ordering Provider Test Date Status ANNA STARR 10/22/2023 10:39:22 Final Warfarin Therapy
INR: 2 .0-3.0 conventional anticoagulation
INR: 2.5- 3.5 high intensity anticoagulation Observation Date Value Abnormality Reference (Units ) Status PT 10/22/2023 10:39:22 13.4 11.6-15.2 (seconds) Final INR 10/22/2023 10:39:22 1.0 0.8-1.2 Final Performing Location [facility] [place] [address]
--- OUTSIDE RECORDS SUMMARY | 2023-10-29 10:37 | External Medical Summary ---
Author Name Unknown Address Unknown Organization [id number][facility] [place] [address] [place] [id number] Laboratory Report Ordering Provider Test Date Status ANNA STARR 10/22/2023 10:39:37 Final Observation Date Value Abnormality Reference (Units) Status Bacteria identified in Specimen by Culture 10/22/2023 10:39:37 No significant growth Final Test: Culture, Urine, Quanti tative
Specimen Source: Urine, Clean Catch
Specimen Type: Urine
Specimen Date: 10/22/2023 10:39 AM
Result Date: 10/23/2023 11:47 AM
Result Status: Final result
Resulting Lab: [facility] [place]
[address]
[place] [address]

CULTURE

No significant growth

null Performing Location [facility] [place] [address] [facility] [address]
--- OUTSIDE RECORDS SUMMARY | 2023-10-29 10:37 | External Medical Summary ---
Author Name Unknown Address Unknown Organization [id number]:[facility] [place] - [address] [facility] [address] Laboratory Report Ordering Provider Test Date Status ANNA STARR 10/22/2023 10:39:37 Final Observation Date Value Abnormality Reference (Units ) Status Color of Urine by Auto 10/22/2023 10:39:37 Yellow Colorless, Light Yellow, Yellow, Dark Yellow Final Clarity, Urine 10/22/2023 10:39:37 Clear Clear Final Glucose [Mass/volume] in Urine by Automated test strip 10/22/2023 10:39:37 Negative Negative (mg/dL) Final Bilirubin.total [Presence] in Urine by Automated test strip 10/22/2023 10:39:37 Negative Negative Final Ketones [Mass/volume] in Urine by Automated test strip 10/22/2023 10:39:37 Negative Negative (mg/dL) Final Specific gravity, Urine 10/22/2023 10:39:37 1.020 1.003-1.030 Final Hemoglobin [Presence] in Urine by Automated test strip 10/22/2023 10:39:37 Negative Negative Final pH, Urine 10/22/2023 10:39:37 5.5 5.0-7.5 (Units) Final Protein [Mass/volume] in Urine by Automated test strip 10/22/2023 10:39:37 Negative Negative (mg/dL) Final Urobilinogen [Mass/volume] in Urine by Automated test strip 10/22/2023 10:39:37 Normal Normal (mg/dL) Final Nitrite [Presence] in Urine by Automated test strip 10/22/2023 10:39:37 Negative Negative Final Leukocyte esterase [Presence] in Urine by Automated test strip 10/22/2023 10:39:37 Negative Negative Final Annotation Comment 10/22/2023 10:39:37 Final Screen negative - Microscopi c not performed. Performing Location [facility] - [address] [facility] [address]
--- OUTSIDE RECORDS SUMMARY | 2023-10-29 10:37 | External Medical Summary ---
Author Name Unknown Address Unknown Organization [id number][place] [place] [address] [facility] [address] Laboratory Report Ordering Provider Test Date Status ANNA STARR 10/22/2023 10:39:22 Final Observation Date Value Abnormality Reference (Units ) Status HbA1C 10/22/2023 10:39:22 7.2 Above high normal 4. 0-5.6 (%) Final The use of HbA1c to monitor glycemic status is based on normal hemoglobin and HbA composition. This test should not be used in patients with abnormal hemoglobin that affects the half life of the red blood cell or the in vivo glycation rates. Glucose, estimated average 10/22/2023 10:39:22 160 Above high normal <126 (mg/dL) Sudheer dillon Performing Location [facility] [place] [address] [facility] [address]
--- NOTE | 2023-10-29 10:52 | Operative Report ---
Post Operative Report Pre & Post Diagnosis Operation Date: 10/29/23 09:10 Pre-Op Diagnosis: Right Hip Osteoarthritis Post-Op Diagnosis: Right Hip Osteoarthritis I identified the patient and participated in the time-out.: Yes Procedure Operation Date: 10/29/23 09:10 Actual Procedures p Right Total Hip Arthroplasty(Right) - Dean Wellington MD Surgeon Dean Wellington MD Ultrasound Manager Yuniel Holloway MD and BIANKA Metzger PA-C. Estimated Blood Loss 100 Findings Consistent with Post-Op Diagnosis Specimens Right femoral head Anesthesia Type Spinal MAC Complications none Disposition Disposition: Recovery Room Indications 68-year-old male, with right hip osteoarthritis refractory to conservative management. X-rays demonstrate joint space narrowing, large peripheral osteophytes, and subchondral sclerosis. I had a long discussion with him about the risks and benefits of surgery, alternatives to surgery, and expected outcomes. After reviewing all these he elected to proceed with surgery. All questions were answered. Informed consent was signed. Description of Procedure Patient was identified in the preoperative holding area where the surgical site, right hip, was marked. A spinal anesthetic was placed, then the patient was brought back to the main operating room, placed in the operating table and moved into the lateral decubitus position. Axillary roll was placed. All bony prominences were padded. Perioperative antibiotics and tranexamic acid 1 gram IV were administered. The operative extremity was prepped and draped in the normal sterile fashion. Prior to incision a multidisciplinary timeout was called. All in the room were in agreement. We began by making an incision for a posterior approach to the hip. We dissected down through subcutaneous tissues to the level of the fascia. The fascia was incised in line with the incision. Charnley bow was placed. Fatty tissue was reflected posteriorly off the back of the greater trochanter to expose the piriformis and short external rotators of the hip. Quadratus femoris was taken off the femur subperiosteally. The piriformis and short external rotators were dissected off the posterior aspect of the hip. A box cut was made in the capsule. Inferior hip capsule was released off the femur. The femoral head was dislocated. The femoral neck cut was made at our preoperative template. The acetabulum was then exposed. The labrum was sharply excised. Contents of the cotyloid fossa were removed with electrocautery. We then began reaming at a size 8 mm less than our preoperative template. We reamed up by 1 [address] increments all the way up to a size 54 mm cup. This gave us good bleeding cancellus bone circumferentially. The acetabulum was then irrigated out and dried. The real [place] Gription cup was then impacted down into position with 45 degrees of lateral opening and 25 degrees of anteversion. A single cancellous bone screw was placed up into the ilium. Excellent fixation was obtained. A trial liner for a 36 mm femoral head was then placed. Next we turned our attention to the femur. The lateral neck was removed with a box osteotome. Intramedullary guide was used to establish the intramedullary canal. We then broached all the way up to a size 5. We began trialing with a standard offset neck and a +5 head. Hip was reduced. Leg lengths were symmetric. The hip was stable in extension and external rotation, and stable in the sleeper position. At 90 degrees of hip flexion the hip could be internally rotated 55 degrees before levering out of the cup. I was very happy with the stability exam. Therefore the hip was dislocated and the femoral trial was removed. The acetabulum was re-exposed, and the trial liner was removed. Perkins hole eliminator screw was placed. An Altrx polyethylene liner for a 36 mm femoral head was then impacted into the shell. The locking mechanism was checked to ensure that it had engaged which it had. The femur was re-exposed. The femoral canal was irrigated and dried. The real size 5 standard offset Actis femoral stem was opened up. This was impacted down into position. The 36 mm ceramic femoral head with +5 mm offset was opened up and gently impacted down onto the trunnion. The hip was atraumatically reduced. Another 1 gram of IV tranexamic acid was started prior to closure. The wound was irrigated out with sterile Betadine solution. The periarticular injection cocktail was then placed. The short external rotators, piriformis, and posterior capsule were repaired through drill holes in the greater trochanter using #2 Vicryl. The fascia was run with a looped #1 PDS. The subcutaneous layer was closed with #1 PDS. The dermal layer was closed with 2-0 Vicryl. Zip line was used for the skin followed by a Silverlon dressing. A compressive dressing was then placed. The patient was then rolled supine. Leg lengths were rechecked and were symmetric. An abduction pillow was placed. Sedation was lifted and the patient was transferred to the recovery room in stable condition. Summary of implants: Depuy [place] Gription Acetabular Shell Sector Cup, 54 mm outer diameter [place] Cancellous bone screw, 6.5 x 40 mm Perkins hole eliminator [place] Altrx Polyethylene Acetabular Liner, Neutral, with a 36 mm inner diameter DePuy Actis collared cementless Femoral stem, 12/14 taper, size 5 standard offset 36 mm ceramic femoral head with +5 offset Postoperative course: Patient will be admitted overnight from the recovery room. Patient will be weightbearing as tolerated with posterior hip precautions. Aspirin for DVT prophylaxis I attest to the content of the Intraoperative Record and any orders documented therein. Any exceptions are noted below.
--- NOTE | 2023-10-29 11:08 | Operative Report ---
Post Operative Report Pre & Post Diagnosis Operation Date: 10/29/23 09:10 Pre-Op Diagnosis: Right Hip Osteoarthritis Post-Op Diagnosis: Right Hip Osteoarthritis I identified the patient and participated in the time-out.: Yes Procedure Operation Date: 10/29/23 09:10 Actual Procedures p Right Total Hip Arthroplasty(Right) - Dean Wellington MD Surgeon Dean Wellington MD Edge Inker Uppers Yuniel Holloway MD and BIANKA Metzger PA-C. Estimated Blood Loss 100 Findings Consistent with Post-Op Diagnosis Specimens femoral head and soft tissue Description of Procedure I was present during the entire case assisting with positioning, prepping, draping, wound retraction, wound closure, dressing and abduction pillow placement. Fellow also present. I served as an extra set of hands during the case. Please see Dr. Wellington procedure note for specifics of the case. I attest to the content of the Intraoperative Record and any orders documented therein. Any exceptions are noted below.
[2023-10-29] MEDS ORDERED: NALOXONE HCL 0.4 MG/1 ML VIAL/CARP IV PRN (11:12)
[2023-10-29] MEDS ORDERED: bisacodyL 10 MG SUPP PR PRN (11:12)
[2023-10-29] MEDS ORDERED: METOCLOPRAMIDE HCL INJ 5 MG/ML 2 ML VIAL IV PRN (11:12)
[2023-10-29] MEDS ORDERED: diphenhydrAMINE 50 MG/ML VIAL IV PRN (11:12)
[2023-10-29] MEDS ORDERED: HYDROmorphone INJ 0.5 MG/0.5 ML SYR IV PRN (11:12)
[2023-10-29] MEDS ORDERED: ALUMINUM/MAGNESIUM SUSP 30 ML UDC PO PRN (11:12)
[2023-10-29] MEDS ORDERED: TAMSULOSIN HCL 0.4 MG CAP PO PRN (11:12)
[2023-10-29] MEDS ORDERED: MAGNESIUM HYDROXIDE SUSP 30 ML UDC PO PRN (11:12)
--- NOTE | 2023-10-29 11:12 | Operative Report ---
Post Operative Report Pre & Post Diagnosis Operation Date: 10/29/23 09:10 Pre-Op Diagnosis: Right Hip Osteoarthritis Post-Op Diagnosis: Right Hip Osteoarthritis I identified the patient and participated in the time-out.: Yes Procedure Operation Date: 10/29/23 09:10 Actual Procedures p Right Total Hip Arthroplasty(Right) - Dean Wellington MD Surgeon Dean Wellington MD Underground Mine Machinery Mechanic Yuniel Holloway MD and BIANKA Metzger PA-C. Estimated Blood Loss 100 Findings Consistent with Post-Op Diagnosis Same as postoperative diagnosis. Specimens The resected femoral head and neck. Description of Procedure Please see detailed operative note. I attest to the content of the Intraoperative Record and any orders documented therein. Any exceptions are noted below.
--- NOTE | 2023-10-29 11:56 | XRay Report ---
AP PELVIS one view History: Right total hip arthroplasty. Degenerative arthritis. Postop. FINDINGS: The patient is status post a right total hip arthroplasty. The hardware is intact. No fract ure or dislocation. Evidence for prior left total hip arthroplasty. IMPRESSION: Right total hip arthroplasty. No evidence for hardware complication ACT 112: Negative or not required by law. Electronically signed by: Ricardo Richard M.D. 10/29/2023 11:54 AM
[2023-10-29] MEDS: SODIUM CHLORIDE 0.9% 1,000 ML IV SCH (12:30)
[2023-10-29] MEDS: KETOROLAC TROMETHAMINE 15 MG/ML VIAL IV SCH (13:37)
--- NOTE | 2023-10-29 13:49 | Anesthesiology Progress Note ---
Date of Service October 29, 2023 Anesthesia Post Procedure Vital Signs Vital Signs: Temp Pulse Pulse Resp BP Pulse Ox O2 Del Method 10/29/23 13:00 36.3 C L 51 L 16 132/80 97 Room Air 10/29/23 12:35 36.4 C L 50 L 16 125/76 98 Room Air 10/29/23 12:05 36.4 C L 52 L 14 137/65 98 Room Air 10/29/23 11:45 36.6 C 55 L 12 131/72 98 Room Air 10/29/23 11:35 67 12 127/69 96 Room Air 10/29/23 11:25 60 12 126/66 97 Room Air 10/29/23 11:15 63 12 129/72 100 Room Air 10/29/23 11:07 36.2 C L 72 17 121/71 99 Room Air 10/29/23 08:16 36.8 C 72 20 154/93 H 98 Room Air Transfer of Care Handoff Completed per policy Notes Mental Status: alert / awake / arousable and participated in evaluation Patient Amnestic to Procedure: Yes Nausea / Vomiting: adequately controlled Pain: adequately controlled Airway Patency, RR, SpO2: stable & adequate BP & HR: stable & adequate Hydration State: stable & adequate Anesthetic Complications: no major complications apparent and Pt Satisfied with anesthetic care
[2023-10-29] MEDS: Scopolamine CHECK PATCH PLACEMENT SCH (17:13)
[2023-10-29] MEDS: CLINDAMYCIN/D5W 600 MG/50 ML BAG IV SCH (17:44)
[2023-10-29] MEDS: metFORMIN HCL ER 500 MG TABCR PO SCH (17:44)
[2023-10-29] MEDS: oxyCODONE HCL IR 5 MG TAB (IMMEDIATE RELEASE) PO PRN (19:56)
[2023-10-29] MEDS: DOCUSATE SODIUM 100 MG CAP PO SCH (19:56)
[2023-10-29] MEDS: ATORVASTATIN 20 MG TAB PO SCH (19:57)
[2023-10-29] MEDS: SENNA 8.6 MG TAB PO SCH (19:57)
[2023-10-29] MEDS ORDERED: metFORMIN HCL ER 500 MG TABCR PO SCH (21:00)
[2023-10-30] MEDS: ASCORBIC ACID 500 MG TAB PO SCH (08:02)
[2023-10-30] MEDS: lisinopril 20 MG TAB PO SCH (08:03)
[2023-10-30] MEDS: metFORMIN HCL ER 500 MG TABCR PO SCH (08:03)
[2023-10-30] MEDS: METOPROLOL SUCC 25MG EXT REL TAB PO SCH (08:04)
[2023-10-30] MEDS: RIVAROXABAN 10 MG TABLET PO SCH (08:04)
[2023-10-30] MEDS: MULTIVITAMIN TAB PO SCH (08:04)
[2023-10-30] MEDS: TAMSULOSIN HCL 0.4 MG CAP PO SCH (08:04)
[2023-10-30 08:44] LABS: Basophils # (auto) 0.02 K/uL (0.00-0.20); Basophils % (auto) 0.3 %; Eosinophils # (auto) 0.05 K/uL (0.00-0.50); Eosinophils % (auto) 0.6 %; Hematocrit (blood only) 42.2 % (42.0-52.0); Hemoglobin 14.4 g/dl (14.0-18.0); Immature Granulocytes # (auto) 0.02 K/uL (0.01-0.20); Immature Granulocytes % (auto) 0.3 %; Lymphocytes # (auto) 1.08 K/uL (1.20-3.40); Lymphocytes % (auto) 13.5 %; Mean Corpuscular Hgb Conc 34.1 g/dL (32.0-36.0); Mean Corpuscular Volume 90.9 fL (80.0-100.0); Mean Platelet Volume 9.8 fL (9.4-12.4); Monocytes # (auto) 0.75 K/uL (0.11-0.59); Monocytes % (auto) 9.4 %; Neutrophils # (auto) 6.07 K/uL (1.40-6.50); Neutrophils % (auto) 75.9 %; Platelet Count 214 K/uL (130-400); RDW Coefficient of Variation 13.3 % (11.5-14.5); RDW Standard Deviation 44.4 fL (36.4-46.3); Red Blood Count 4.64 M/uL (4.70-6.10); White Blood Count 7.99 K/ul (4.8-10.8)
[2023-10-30] MEDS ORDERED: NON-FORMULARY MEDICATION (Multivitamin Tablet) PO SCH (09:00)
[2023-10-30 09:04] LABS: BUN Creatinine Ratio 20.3 (10-20); Calcium 8.2 mg/dl (8.6-10.3); Creatinine Clr Calc Pharmacy 107.9 ml/min; Est GFR (African American) 109.8 ml/min; Est GFR (Non-African American) 94.8 ml/min; Potassium 4.3 mmol/L (3.5-5.1)
--- NOTE | 2023-10-30 09:22 | Orthopedic Progress Note ---
Date of Service October 30, 2023 Assessment & Plan (1) S/P total hip arthroplasty: Plan: Total hip precautions reviewed PT/OT Abduction pillow use x 6 weeks Weightbearing as tolerated with walker assistance Keep Silverlon dressing in place until follow-up DVT prophylaxis with Xarelto and ANDRÉS stockings Pain control with p.o. medication Ice with easy wrap Plan is to discharge home later this morning with in-home physical therapy for the first 2 weeks Follow-up at [facility] orthopedics as previously scheduled With questions contact our clinic at [phone] Admission and Anticipated Discharge Date Admission Date: October 29, 2023 Subjective This 68-year-old male is day 1 status post right total hip arthroplasty. Patient states that he is doing very well. He states his pain is well- controlled with the p.o. pain medication. He is eager to be discharged home later this morning. He is currently working with physical therapy. He states that he has been able to transition from his bed to the bedside chair and to the restroom without difficulty as long as he was using his walker. Currently he denies chest pain, shortness of breath, fever, chills, sweats or numbness or tingling in his right lower extremity. Patient also denies nausea, vomiting, diarrhea or difficulty voiding. Review of Systems Review of Systems: All systems reviewed & are unremarkable except as noted in Subjective Physical Exam Physical Exam: Right lower extremity: Outer dressing was removed. Silverlon is clean dry and intact and left in place. Patient is able to easily perform an active straight leg raise test and actively dorsi and plantarflex his foot. Logroll test causes no pain. Light passive flexion near 90 degrees with light passive internal and external rotation causes no pain either. Quad strength is 4 out of 5. Patient is neurovascularly intact. Results & Data Vital Signs (Past 12 Hours) Vital Signs Temp Pulse Resp BP Pulse Ox O2 Del Method 10/30/23 07:09 36.6 C 77 16 146/79 H 94 Room Air 10/30/23 03:28 36.3 C L 67 18 135/79 96 Room Air 10/29/23 23:00 36.6 C 70 16 118/71 95 Room Air Diagnostic Findings Laboratory Results WBC 7.99 K/ul (4.8-10.8) 10/30/23 08:16 RBC 4.64 M/uL (4.70-6.10) L 10/30/23 08:16 Hgb 14.4 g/dl (14.0-18.0) 10/30/23 08:16 Hct 42.2 % (42.0-52.0) 10/30/23 08:16 MCV 90.9 fL (80.0-100.0) 10/30/23 08:16 MCH 31.0 pg (25.0-34.0) 10/30/23 08:16 MCHC 34.1 g/dL (32.0-36.0) 10/30/23 08:16 RDW Std Deviation 44.4 fL (36.4-46.3) 10/30/23 08:16 RDW Coeff of Ankit 13.3 % (11.5-14.5) 10/30/23 08:16 Plt Count 214 K/uL (130-400) 10/30/23 08:16 MPV 9.8 fL (9.4-12.4) 10/30/23 08:16 Immature Gran % (Auto) 0.3 % 10/30/23 08:16 Neut % (Auto) 75.9 % 10/30/23 08:16 Lymph % (Auto) 13.5 % 10/30/23 08:16 [place] % (Auto) 9.4 % 10/30/23 08:16 Eos % (Auto) 0.6 % 10/30/23 08:16 Baso % (Auto) 0.3 % 10/30/23 08:16 Neut # (Auto) 6.07 K/uL (1.40-6.50) 10/30/23 08:16 Lymph # (Auto) 1.08 K/uL (1.20-3.40) L 10/30/23 08:16 [place] # (Auto) 0.75 K/uL (0.11-0.59) H 10/30/23 08:16 Eos # (Auto) 0.05 K/uL (0.00-0.50) 10/30/23 08:16 Baso # (Auto) 0.02 K/uL (0.00-0.20) 10/30/23 08:16 Immature Gran # (Auto) 0.02 K/uL (0.01-0.20) 10/30/23 08:16 Sodium 137 mmol/L (136-145) 10/30/23 08:16 Potassium 4.3 mmol/L (3.5-5.1) 10/30/23 08:16 Chloride 105 mmol/L (98-107) 10/30/23 08:16 Carbon Dioxide 27 mmol/L (21-32) 10/30/23 08:16 Anion Gap 5 (3-11) 10/30/23 08:16 BUN 15 mg/dl (6-23) 10/30/23 08:16 Creatinine 0.74 mg/dl (0.6-1.4) 10/30/23 08:16 Est Cr Clr Drug Dosing 107.9 ml/min 10/30/23 08:16 Est GFR ( Amer) 109.8 ml/min 10/30/23 08:16 Est GFR (Non-Af Amer) 94.8 ml/min 10/30/23 08:16 BUN/Creatinine Ratio 20.3 (10-20) H 10/30/23 08:16 Glucose 148 mg/dl (70-99(Fasting)) H 10/30/23 08:16 POC Glucose 131 mg/dl (70-99) H 10/30/23 07:42 Calcium 8.2 mg/dl (8.6-10.3) L 10/30/23 08:16 Blood Type B Positive 10/29/23 08:02 Antibody Screen NEGATIVE 10/29/23 08:02 Impressions Pelvis X-Ray 10/29/23 11:12 AP PELVIS one view History: Right total hip arthroplasty. Degenerative arthritis. Postop. FINDINGS: The patient is status post a right total hip arthroplasty. The hardware is intact. No fracture or dislocation. Evidence for prior left total hip arthroplasty. IMPRESSION: Right total hip arthroplasty. No evidence for hardware complication ACT 112: Negative or not required by law. Electronically signed by: Ricardo Richard M.D. 10/29/2023 11:54 AM
--- NOTE | 2023-10-30 09:43 | Discharge Summary ---
Date of Service October 30, 2023 Admission HPI Per Admitting Provider History of Present Illness (including history relevant to procedure): This 68-year-old male presents to the clinic today for his preoperative history and physical. Patient has a longstanding history of hip arthritis. Patient had his left hip replaced by Dr. Wellington back in August 2022. Patient states that he was doing very well following the left hip replacement but noticed that at the end of his golf season this year he had difficulty completing 18 holes due to the pain he experienced in his left hip. He has tried [id number] anti- inflammatory agents. He has done some rehab exercises that he did for his left hip without alleviation of his pain. He is electing to proceed with surgical intervention at this time. Review Of Systems: 12 point review of systems is performed and is unremarkable except for those things stated in the HPI and past medical history. Past Medical History: Problems: Diabetes Hypertension Hypercholesterolemia History of pulmonary embolism Procedure History Procedure Procedure Date Comments Cervical decompression at C4-C5 for spinal stenosis, Achilles tendon repair, knee arthroscopy Allergies and Sensitivities: Rocephin(Hives) Current Home Meds: (Last Updated 10/21 10:50) amoxicillin (amoxicillin 500 mg oral capsule) 2,000 mg PO As indicated one hour before dental and other procedures as directed aspirin (aspirin 81 mg oral delayed release tablet) 81 mg PO Daily atorvastatin (atorvastatin 20 mg oral tablet) 20 mg PO Daily lisinopril (lisinopril 20 mg oral tablet) TAKE 1 TABLET BY MOUTH IN THE MORNING metFORMIN (MetFORMIN (Eqv-Glucophage XR) 500 mg oral tablet, extended release) 1,500 mg total 1500mg dily metoprolol (Metoprolol Succinate ER 25 mg oral tablet, extended release) 25 mg PO Daily multivitamin (Multi Vitamin+) tamSULOsin (tamsulosin 0.4 mg oral capsule) TAKE 1 CAPSULE BY MOUTH IN THE MORNING Admission Exam Per Admitting Provider Physical Exam: (relevant to the procedure, including heart and lung evaluation) General: Alert and oriented x 3 with proper grooming and hygiene Eyes: Pupils are equal and reactive to light with accommodation. Extraocular movements are intact Throat: Posterior oropharynx is clear with absence of edema, erythema or exudate. Dentition is appropriate Cardiac: Regular rate and rhythm with no murmurs or gallops appreciated Lungs: Clear to auscultation throughout with no wheezing, rales or rhonchi Abdomen: Nonobese, nondistended, nontender with NABS Extremities: Right hip: Flexion is limited to 90 degrees, internal rotation to 5 degrees, external rotation to 40 degrees. Patient has a positive Stinchfield test. He experiences tenderness to palpation over the groin area. Impingement test is positive. Patient is neurovascularly intact. Neuro: Cranial nerves II through XII are intact, with no motor or sensory deficit Skin: Normal in appearance with no open skin areas or discharge Principal Diagnosis Right hip osteoarthritis Discharge Exam Right lower extremity: Outer dressing was removed. Silverlon is clean dry and intact and left in place. Patient is able to easily perform an active straight leg raise test and actively dorsi and plantarflex his foot. Logroll test causes no pain. Light passive flexion near 90 degrees with light passive internal and external rotation causes no pain either. Quad strength is 4 out of 5. Patient is neurovascularly intact. Discharge Data Allergies Allergy/AdvReac Type Severity Reaction Status Date / Time ceftriaxone Allergy Intermediate Hives, Verified 10/29/23 08:07 swelling, throat itching Procedures Performed Operation Date: 10/29/23 09:10 Actual Procedures p Right Total Hip Arthroplasty(Right) - Dean Wellington MD Hospital Course (1) S/P total hip arthroplasty: Patient had an uneventful overnight stay following right total hip arthroplasty. Patient states he is doing very well this morning. He is anticipating going home later this morning is already established with in-home physical therapy. He states that it is his understanding that they will be contacting him later today to get therapy set up for later this weekend. Patient is very pleased with the results of the surgery. Total hip precautions reviewed PT/OT Abduction pillow use x 6 weeks Weightbearing as tolerated with walker assistance Keep Silverlon dressing in place until follow-up DVT prophylaxis with Xarelto and ANDRÉS stockings Pain control with p.o. medication Ice with easy wrap Plan is to discharge home later this morning with in-home physical therapy for the first 2 weeks Follow-up at [facility] orthopedics as previously scheduled With questions contact our clinic at [phone] Total Time Total Time Spent Total Time Spent (In Minutes): 20 minutes Discharge Plan Discharge Items Patient Disposition: Home - Home Health Services Reason For Visit: Right Hip Osteoarthritis Discharge Diagnosis: Right hip osteoarthritis Activity: As commented below Lifting: None Bathing: Keep incision dry Bathing Comment: May shower tomorrow Sexual Activity: Wait until after follow-up appointment Exercise/Sports: Wait until after follow-up appointment Driving/Machine Use: No driving until cleared by registration scheduling specialist Weightbearing: Right weightbearing Weightbearing Comment: as tolerated with walker Non-emergency contact: Surgeon Call non-emergency contact if: you have any medication questions, your pain is not controlled, your temperature is above 101.5, your wound has increased drainage and your wound pain has increased Follow-up/Referrals: Micah Cline, DO [Primary Care Provider] - Diet: Carb Consistent or DM2 Addtl Attending Provider Instructions: Post-operative Instructions Dear Patient and Family/Friends, Before you are discharged from the hospital, it is important to know what to expect when you get home after surgery. To that end, we have created this sheet of discharge instructions which covers many commonly asked questions. Make sure you go through this sheet in its entirety with your nurse before you are discharged. Please note that we will go over the specifics of your surgery and recovery when you return for your first post-operative visit. Sincerely, Dr. Wellington Medications 1. Oxycodone 5 mg: Take 1-2 tabs every 4-6 hours as needed for postoperative pain control. This prescription was sent to your pharmacy. 2. Xarelto 10 mg: Take 1 tab daily for the first 30 days postoperatively for blood clot prevention. This was also sent to your pharmacy. 3. Diclofenac sodium 75 mg: Take 1 tab twice daily for the first 30 days postoperatively for pain and inflammation relief. This was sent to your pharmacy with 1 additional refill. 4. Extra strength Tylenol 500 mg: Take 2 tabs every 6-8 hours as needed for additional supplemental pain control. Please purchase this medication. Pain Expect to be in a fair amount of pain after surgery. Remember, our goal is not to eliminate your pain, but to make it tolerable. It is a good idea to stay ahead of your pain by taking the medications you were prescribed once you get home. Typically, the pain starts improving 3-7 days after surgery. You should start weaning off the narcotic pain medication (oxycodone, hydrocodone, hydromorphone, morphine) as soon as your pain improves. Please call our office if your pain is not adequately controlled. Ice Ice your operative site at least 5 times a day for 15-30 minutes at a time. Make sure you have a thin cloth between the ice or cooling unit and your skin to prevent campos bite. This is especially important if you received a nerve block. Continue icing your operative site for the first 5-7 days after surgery, then as needed. Diet/Nausea/Vomiting Start by drinking clear liquids and eating crackers. If you can tolerate this, then you may resume your normal diet. If you feel nauseated or vomit, take Zofran/ondansetron (if prescribed). Please call our office if you have intractable nausea or vomiting, or, if after hours, you may go to the Emergency Room for help. Constipation Constipation is a common side effect of narcotic pain medication. If you have not had a bowel movement within 2 days after surgery, we recommend purchasing an over the counter laxative such as Milk of Magnesia, Dulcolax, or Miralax from a local pharmacy, and taking it as instructed. Call our clinic if any questions. Nerve block The anesthesia team sometimes places a nerve block to help with post-operative pain control. This results in significant numbness and inability to move the extremity. The nerve block usually wears off in 8-12 hours, but sometimes can last up to 24 hours. Please call our office if you are still unable to move your extremity after 24 hours, unless you received a pain pump to take home. Nerve blocks typically wear off quickly, so start taking pain medication as soon as you start feeling soreness near your surgical site. Weight bearing and Range of Motion. Do not bear any weight through your operative extremity immediately after surgery. If you had upper extremity surgery, do not lift anything with that arm. If you are in a knee brace, keep it locked in place until your follow-up. We will discuss your weight bearing, range of motion, and lifting restrictions in detail at your first post-operative appointment. Continuous Passive Motion (CPM) Machine If you were prescribed a CPM machine, it will start after your first post- operative appointment, at which time we will give you instructions on the range of motion settings and duration of treatment Physical therapy You will be given a prescription for physical therapy or occupational therapy at your first post-operative appointment. Typically, patients start therapy within 1 week of surgery Wound care and showering We will inspect your wound at your first post-operative visit, and may do a dressing change at that time. Most patients will be in a water-proof dressing that is removed 14 days after surgery. It is normal to see some dried blood on the dressing. Do not remove your dressing, paper strips or sutures yourself unless you are given permission. Showering is allowed the day after surgery. Do not scrub or remove any dressings. The wound should not be submerged underwater (i.e. in a bathtub or pool) until 4 weeks after surgery ANDRÉS stockings If you were given white stockings, these are to be worn at all times except to shower (on both legs) for the first 2 weeks after surgery. Driving You may not drive while taking narcotic pain medication or while in a cast, splint, sling or brace. You, the patient, need to make the final determination about when you are safe to drive, however, the earliest you may consider driving after surgery is below: Hand/Wrist/Elbow Surgery: 3 days Shoulder Surgery: 2 weeks Hip,/Knee/Ankle Surgery: 4 weeks Fracture repair: 6 weeks Return to Work Your return to work depends on what surgery was done and what type of work you do. Please bring any paperwork your employer needs completed to your first post-operative visit. Also, bring a description of your job duties, as this helps us to understand what risks you may face at work. Travel Avoid long distance travel (greater than 1 hour) in airplanes and cars for the first 6 weeks after surgery. If you must travel, you need to have a Doppler ultrasound done before you travel to rule out a blood clot in your legs. Follow-up You should have a follow-up appointment already scheduled 1-2 days after surgery. If not, please contact our office to make this appointment before you leave the hospital. When to call the office It is normal to have swelling and bruising in the limb that was operated on. This will improve with time. It is also normal to have fevers for the first 2 days after surgery. Reasons you should call your doctor include: Uncontrolled pain; Nausea, vomiting, or constipation that does not improve with medication; Fevers over 101.5, chills, sweats; Drainage or bleeding from the wound; Foul odor; Spreading areas of redness; Any other concerns Pending Studies at Discharge: No Stand-Alone Forms: My [facility] Medications and DC Order Prescriptions: New acetaminophen [Tylenol Extra Strength] 500 mg Tablet 1,000 mg PO Q8H 30 Days Qty: 180 0RF Xarelto 10 mg Tablet 10 mg PO DAILY 30 Days Qty: 30 0RF oxycodone 5 mg Tablet 5 - 10 mg PO Q4H MDD Ongoing Tx PRN (Reason: Post op pain relief) Qty: 28 0RF diclofenac sodium 75 mg tablet,delayed release (DR/EC) 75 mg PO BID 30 Days Qty: 60 1RF Continued lisinopril 20 mg Tablet 20 mg PO QAM Qty: 0 multivitamin Tablet 1 tab PO QAM Qty: 0 ascorbic acid (vitamin C) [Vitamin C] 1,000 mg Tablet 1 g PO QAM metformin 1,000 mg Tablet 1,000 mg PO HS atorvastatin 20 mg tablet 20 mg PO HS tamsulosin 0.4 mg capsule 0.4 mg PO QAM metoprolol succinate 25 mg tablet extended release 24 hr 25 mg PO QAM metformin 500 mg tablet extended release 24 hr 500 mg PO DAILY Rx Instructions: 500mg in AM and 1000mg QPM Discontinued aspirin 81 mg tablet,delayed release (DR/EC) 81 mg PO QAM acetaminophen 650 mg Tablet 650 mg PO Q6H PRN (Reason: prn) Admission Data Admit Date/Time: 10/29/23 11:12 Attending Provider: Dean Wellington Admit Provider: Dean Wellington Primary Care Provider: Micah Cline Other Providers: [facility],Home Health
[2023-10-30] MEDS: CeleBREX 200 MG CAP PO SCH (11:20)
== END 2023-10-30 11:40 | disposition home health service (06) ==
LOC: 3E 07:42 → ASU 07:42